=== PATIENT | male | born 1955 | race Caucasian/White ===

== ENCOUNTER 2017-09-15 08:39 | Day surgery (SDC) | payer BC ==
[2017-09-14 10:55] VITALS: BMI 27.7
[~2017-09-15 08:39] MED LIST: LACTATED RINGERS 1,000 ML IV SCH
[2017-09-15 09:53] VITALS: TEMP 97.7
[2017-09-15] MEDS ORDERED: PROPOFOL 10 MG/ML 20 ML VIAL IV ONE (10:31)
--- NOTE | 2017-09-15 11:52 | P.PCN ---
Date of Procedure: 09/15/17 Procedure(s) Performed: Procedure: Total colonoscopy. Preoperative diagnosis: Screening for neoplasia. Postoperative diagnosis: Normal exam with no evidence of acute diverticulitis, strictures, polyps or cancer. Preparation: HalfLytely prep. Sedation: Was provided by anesthesia. Brief clinical history: The patient is 62-year-old male who is referred for this evaluation for screening for neoplasia. He had prior exams in the past because of family history of colon cancer and he had polyps removed. His last exam was 5 years ago. He has no abdominal complaints, bleeding or anemia. Procedure: With the patient on his left lateral decubitus position and after informed consent and adequate sedation, the perianal area was inspected and it did not show any fissures or fistulas. There were no masses felt on digital rectal examination. The Olympus CFQ 160L video colonoscope was then inserted in the rectum in the usual fashion and advanced to the cecum. The mucosa appeared healthy. No polyps or tumors were seen or any obvious diverticular disease. I retroflexed the endoscope in the rectum before the endoscope was withdrawn. The patient tolerated the procedure well. Plan: The patient was reassured. Discussed dietary measures. With his history , I recommended repeat exam in 5 years. He will follow-up with you as planned.
[2017-09-15 12:04] VITALS: BP 97/57; PULSE 54; RESP 12
== END 2017-09-15 12:00 | disposition home or self-care (01) ==
LOC: ORWHC2ENDO 08:39
DX: Z12.11 Encounter for screening for malignant neoplasm of colon (principal); Z86.010 Personal history of colon polyps; Z80.0 Family history of malignant neoplasm of digestive organs; I25.10 Atherosclerotic heart disease of native coronary artery without angina pectoris; I10 Essential (primary) hypertension; E78.5 Hyperlipidemia, unspecified; Z95.5 Presence of coronary angioplasty implant and graft; Z79.82 Long term (current) use of aspirin; Z79.899 Other long term (current) drug therapy
CPT/HCPCS: J2704; G0105; 45378

== ENCOUNTER → 2019-05-11 | Outpatient (CLI) | payer BC ==
--- NOTE | 2019-05-11 22:58 | MR ---
EXAMINATION TYPE: MR lumbar spine wo con DATE OF EXAM: 05/11/2019 COMPARISON: Outside lumbar spine x-ray report April 26, 2019 HISTORY: Micha leg numbness/tingling for 3 months per patient. Spinal stenosis per order. TECHNIQUE: Multiplanar, multisequence imaging of the lumbar spine is performed without IV contrast. FINDINGS: Sagittal images of the lumbar spine show vertebral body heights and alignment to appear sat isfactory. Multilevel disc desiccation with mild disc space narrowing L3-L4 and L4-L5 levels. Mild mu ltilevel anterior spurring. The conus medullaris is normal in position and signal ending at mid L1 l evel. The bone marrow signal intensity is within normal limits. Axial images show at T12-L1 and L1-L2 levels to appear within normal limits. Axial images at the L2-L3 level show mild to moderate broad disc bulge and mild facet degenerative ch anges bilaterally. There is mild effacement anterior thecal sac and fairly moderate bilateral anterio r inferior neural foraminal narrowing encroaching on both L2 nerves worse on the left sagittal image 2 versus right sagittal image 12. Axial images at the L3-L4 level show [id number] facet degenerative changes and ligamentum flavu m hypertrophy effacing the posterior lateral thecal sac. There is mild/moderate broad disc bulge effa cing anterior thecal sac with annular tear. There is mild to moderate right and mild left-sided anter ior inferior neural foraminal narrowing. Axial images at the L4-L5 level moderate facet degenerative changes bilaterally. There is moderate br oad disc bulge effacing anterior thecal sac. There is moderate bilateral neural foraminal narrowing e ncroaching on both L4 nerve sagittal image 3 and 13 respectively. Axial images at the L5-S1 level show mild facet degenerative changes bilaterally. Spinal canal is pre served. Bilateral neural foramina are patent. No suspicious incidental retroperitoneal findings are seen. IMPRESSION: Multilevel degenerative changes in lumbar spine most prominent at L2-L3 through the L4-L5 levels as detailed above.
== END | disposition home or self-care (01) ==
LOC: RADMRIMAIN 19:27
PROVIDERS: ATTEND Internal Medicine Geriatric Medicine
DX: M48.061 Spinal stenosis, lumbar region without neurogenic claudication (principal); M47.816 Spondylosis without myelopathy or radiculopathy, lumbar region; M51.86 Other intervertebral disc disorders, lumbar region
CPT/HCPCS: 72148

== ENCOUNTER 2019-05-16 14:37 | Inpatient (IN) | payer BC, MEDICARE ==
[2019-05-16] MEDS ORDERED: ASPIRIN 81 MG PO STA (15:06)
--- NOTE | 2019-05-16 15:11 | ED ---
Chest Pain HPI <Robson Weston - Last Filed: 05/16/19 16:46> - General Source: patient Mode of arrival: ambulatory Limitations: no limitations <Brionna Osborne - Last Filed: 05/16/19 17:12> - General Chief Complaint: Chest Pain Stated Complaint: Chest Pain Time Seen by Provider: 05/16/19 14:56 - History of Present Illness Initial Comments: 63-year-old male patient with past medical history significant for coronary artery disease and hypertension presents to the emergency department today for evaluation of left-sided chest pain. Patient states that he started having intermittent chest pains yesterday. Patient states today they have persisted. He is having associated dizziness and shortness of breath. Denies any nausea, vomiting, or sweats. Denies any recent travel, leg pain, or Swelling. He denies any cough or congestion. Denies fever or chills. Patient denies any recent rash, abdominal pain, nausea, vomiting, diarrhea, constipation, back pain, numbness, tingling, hematuria, dysuria, urinary urgency, urinary frequency, headache, visual changes, or any other complaints. (Brionna Osborne) - Related Data Home Medications Medication Instructions Recorded Confirmed Aspirin 325 mg PO DAILY 09/14/17 05/16/19 Atenolol [Tenormin] 12.5 mg PO HS 09/14/17 05/16/19 Gemfibrozil [Lopid] 600 mg PO HS 09/14/17 05/16/19 Lisinopril [Zestril] 20 mg PO BID 09/14/17 05/16/19 Simvastatin 40 mg PO HS 09/14/17 05/16/19 amLODIPine [Norvasc] 5 mg PO BID 09/14/17 05/16/19 cloNIDine HCL [Catapres] 0.1 mg PO HS 09/14/17 05/16/19 Allergies Allergy/AdvReac Type Severity Reaction Status Date / Time No Known Allergies Allergy Verified 05/16/19 15:22 Review of Systems ROS Other: All systems not noted in ROS Statement are negative. <Robson Weston - Last Filed: 05/16/19 16:46> ROS Other: All systems not noted in ROS Statement are negative. <Brionna Osborne - Last Filed: 05/16/19 17:12> ROS Statement: Those systems with pertinent positive or pertinent negative responses have been documented in the HPI. EKG Findings - EKG Comments: EKG Findings:: EKG obtained at 1452 shows sinus bradycardia with an incomplete right bundle branch block, ventricular rate 59, HI interval 162, QRS duration 92, QTc 412, QTC 407. <Brionna Osborne - Last Filed: 05/16/19 17:12> Past Medical History Past Medical History: Coronary Artery Disease (CAD), Hyperlipidemia, Hypertension Additional Past Medical History / Comment(s): PREVIOUS HX OF COLON POLYPS History of Any Multi-Drug Resistant Organisms: None Reported Past Surgical History: Heart Catheterization With Stent, Orthopedic Surgery Additional Past Surgical History / Comment(s): STENT X3, ARM TENDON REPAIR Past Anesthesia/Blood Transfusion Reactions: No Reported Reaction Date of Last Stent Placement:: 12/2010 Past Psychological History: No Psychological Hx Reported Smoking Status: Former smoker Past Alcohol Use History: Occasional Past Drug Use History: None Reported - Past Family History Father Family Medical History: Cancer Additional Family Medical History / Comment(s): COLON <Brionna Osborne - Last Filed: 05/16/19 17:12> General Exam Limitations: no limitations General appearance: alert, in no apparent distress, other (This is a well- developed, well-nourished adult male patient in no acute distress. Vital signs upon presentation are temperature 98.6F, pulse 58, respirations 16, blood pressure 135/76, pulse ox 99% on room air.) Eye exam: Present: normal appearance, PERRL, EOMI. Absent: scleral icterus, conjunctival injection, periorbital swelling ENT exam: Present: normal exam, normal oropharynx, mucous membranes moist Respiratory exam: Present: normal lung sounds bilaterally. Absent: respiratory distress, wheezes, rales, rhonchi, stridor Cardiovascular Exam: Present: regular rate, normal rhythm, normal heart sounds. Absent: systolic murmur, diastolic murmur, rubs, gallop, clicks GI/Abdominal exam: Present: soft, normal bowel sounds. Absent: distended, tenderness, guarding, rebound, rigid Extremities exam: Present: normal inspection, full ROM, normal capillary refill. Absent: tenderness, pedal edema, joint swelling, calf tenderness Neurological exam: Present: alert, oriented X3, CN II-XII intact Psychiatric exam: Present: normal affect, normal mood Skin exam: Present: warm, dry, intact, normal color. Absent: rash <Brionna Osborne - Last Filed: 05/16/19 17:12> Course <Robson Weston - Last Filed: 05/16/19 16:46> Vital Signs 05/16/19 05/16/19 05/16/19 14:45 14:53 15:00 Temperature 98.6 F Pulse Rate 58 L 58 L Respiratory 16 19 Rate Blood Pressure 135/76 158/97 O2 Sat by Pulse 99 95 96 Oximetry 05/16/19 05/16/19 05/16/19 15:30 16:00 16:30 Temperature Pulse Rate 57 L 58 L 56 L Respiratory 17 18 Rate Blood Pressure 146/91 139/83 O2 Sat by Pulse 95 98 96 Oximetry - Reevaluation(s) Reevaluation #1: 05/16/19 16:46 Patient reevaluated and reexamined by myself, Dr. Weston. I do repeat findings. This includes diagnostic interpretation and treatment plan. Heart sounds: Regular rate and rhythm without murmur. Radial and pedal pulses 2/4 bilateral. Patient states he has been having episodes of discomfort lasting anywhere from seconds to minutes. This is been occurring since yesterday. Currently patient is symptom-free. Patient is updated on results. Case was discussed in detail with Dr. Cummings who states patient will need stress test. Patient does prefer to stay in the hospital for this and Dr. Cummings is in agreement for admission. He does request cardiology consult for stress test. (Robson Weston) Chest Pain MDM <Brionna Osborne - Last Filed: 05/16/19 17:12> - [facility]:Two-view x-ray of the chest was obtained. Report was reviewed in its entirety. Impression by Dr. Najera shows no acute cardiopulmonary process. MDM: 63-year-old male patient passed a history significant for coronary artery disease presents to the emergency department today for evaluation of chest pain and shortness of breath. Physical examination is unremarkable. Lungs are clear to auscultation with good air movement. Labs reviewed and are unremarkable. Initial troponin is negative. Patient will be admitted to the hospital for stress test and serial cardiac troponins. Patient is agreeable with this plan. (Brionna Osborne) Disposition <Robson Weston - Last Filed: 05/16/19 16:46> Decision to Admit Reason: Admit from EC Decision Date: 05/16/19 Decision Time: 16:54 <Brionna Osborne - Last Filed: 05/16/19 17:12> Clinical Impression: Chest pain Disposition: ADMITTED IP TO THIS [facility] Condition: Serious Referrals: Issac Cummings MD [Primary Care Provider] - 1-2 days
[2019-05-16 15:22] LABS: Basophils % (A) 1 %; Eosinophils # (A) 0.1 k/uL (0-0.7); Eosinophils % (A) 2 %; HCT 43.9 % (39.0-53.0); HGB 15.9 gm/dL (13.0-17.5); Lymphocytes # (A) 1.7 k/uL (1.0-4.8); Lymphocytes % (A) 23 %; MCHC 36.2 g/dL (31.0-37.0); MCV 93.9 fL (80.0-100.0); Mean Platelet Volume 7.1; Monocytes # (A) 0.4 k/uL (0-1.0); Monocytes % (A) 5 %; Neutrophils # (A) 4.8 k/uL (1.3-7.7); Neutrophils % (A) 67 %; Platelet Count 177 k/uL (150-450); RBC 4.67 m/uL (4.30-5.90); RDW 12.8 % (11.5-15.5); WBC 7.2 k/uL (3.8-10.6)
[2019-05-16 15:31] LABS: Albumin 4.4 g/dL (3.5-5.0); Calcium 9.7 mg/dL (8.4-10.2); Magnesium 2.1 mg/dL (1.6-2.3); Total Bilirubin 0.5 mg/dL (0.2-1.3)
[2019-05-16 15:35] LABS: D-Dimer 0.33 mg/L FEU (<0.60); Partial Thromboplastin Time 26.2 sec (22.0-30.0)
--- NOTE | 2019-05-16 15:40 | XR ---
EXAMINATION TYPE: XR chest 2V DATE OF EXAM: 05/16/2019 COMPARISON: None HISTORY: 63-year-old male with chest pain and shortness of breath TECHNIQUE: PA and lateral views FINDINGS: Heart upper limits of normal in size. Aorta and pulmonary vasculature within normal limits. Some stra ndy atelectasis lower lungs. No consolidation or pleural effusion. IMPRESSION: No acute cardiopulmonary process.
[2019-05-16] MEDS ORDERED: NITROGLYCERIN SL TABS 0.4 MG TAB SUBLINGUAL PRN (16:54)
[2019-05-16] MEDS ORDERED: ATORVASTATIN 20 MG TAB PO SCH (21:00)
[2019-05-16] MEDS: cloNIDine HCL 0.1 MG TAB PO SCH (21:06)
[2019-05-16] MEDS: FENOFIBRATE 160 MG TAB PO SCH (21:06)
[2019-05-16] MEDS: LISINOPRIL 20 MG TAB PO SCH (21:06)
[2019-05-16] MEDS: amLODIPine 5 MG TAB PO SCH (21:06)
[2019-05-16] MEDS: ATENOLOL 25 MG TAB PO SCH (21:06)
[2019-05-17 04:13] LABS: Cholesterol 130 mg/dL (<200); HDL Cholesterol 25 mg/dL (40-60); LDL Cholesterol,Calculated 84 mg/dL (0-99); Triglycerides 106 mg/dL (<150)
[2019-05-17] MEDS ORDERED: ASPIRIN 325 MG TAB PO SCH ×2 (09:00)
[2019-05-17] MEDS ORDERED: SODIUM CHLORIDE 0.9% 1,000 ML in EMPTY BAG 1 BAG IV ONE (10:31)
[2019-05-17] MEDS ORDERED: ASPIRIN 325 MG TAB PO STA (10:31)
[2019-05-17] MEDS ORDERED: ALPRAZolam 0.25 MG TAB PO PRN (10:31)
[2019-05-17] MEDS ORDERED: NITROGLYCERIN SL TABS 0.4 MG TAB SUBLINGUAL PRN (10:31)
[2019-05-17] MEDS ORDERED: ATORVASTATIN 80 MG TAB PO STA (10:31)
[2019-05-17] MEDS: LISINOPRIL 20 MG TAB PO SCH ×2 (10:38→21:34)
[2019-05-17] MEDS: amLODIPine 5 MG TAB PO SCH ×2 (10:38→21:34)
--- NOTE | 2019-05-17 12:36 | CONS ---
CONSULTATION CHIEF COMPLAINT: Chest pain. Peterson is a 63-year-old gentleman with history of coronary artery disease, status post multivessel angioplasty including right coronary artery and proximal and mid circumflex coronary artery nearly 10 years ago, hypertension, and dyslipidemia who presents to hospital complaining of chest pain. He describes it as intermittent episodes of precordial chest pressure, mild to moderate intensity at rest, unrelated to exertion associated with diaphoresis. He has had several of these episodes starting from Thursday, was concerned came into hospital. EKG does not reveal ischemic changes. Cardiac enzymes strike that EKG shows sinus bradycardia, incomplete right bundle branch block and nonspecific ST-T wave changes suggestive of ischemia. His cardiac enzymes are negative. LDL cholesterol is 84, creatinine is 1.1, hemoglobin is 15.9, and platelet count is 177. Given the known coronary artery disease, prior multivessel angioplasty and symptoms suggestive of unstable angina, I advised the patient to undergo cardiac catheterization for further evaluation. He has been explained of risks, benefits and alternatives, understood and accepted. PAST MEDICAL HISTORY: Significant for hypertension, dyslipidemia, coronary artery disease, status post prior multivessel angioplasty. MEDICATIONS: Include Norvasc 5 b.i.d., simvastatin 40 daily, Zestril 20 b.i.d., Lopid 600 daily Tenormin 12.5 daily, aspirin. ALLERGIES: There are no known drug allergies. FAMILY HISTORY: Negative for premature coronary artery disease. SOCIAL HISTORY: Negative for current smoking, EtOH abuse, or drug abuse. REVIEW OF SYSTEMS: HEENT: Unremarkable. CARDIAC: As described above. RESPIRATORY: Negative. GI: Negative. : Negative. ALLERGY/IMMUNOLOGY: Negative SKIN: Negative. MUSCULOSKELETAL: Negative. DERM: Negative. CONSTITUTIONAL: Negative. ONCOLOGICAL: Negative. Rest of the system review is not relevant. PHYSICAL EXAM: Patient is comfortable at rest. Heart rate is 50 beats per minute. Blood pressure is 130/80, respiratory rate is 18. There is no jugular venous distention. Carotid upstroke is normal. There is no bruit. Chest exam reveals good air entry bilaterally. Heart exam reveals first and second heart sounds. No gallop. No murmur. No rub. Abdomen is soft, nontender. Exam of extremities did not reveal edema. Peripheral pulses are felt. HOISTER exam did not reveal focal neurological deficits. Cardiac enzymes are negative. EKG shows nonspecific ST-T wave changes suggestive of ischemia. ASSESSMENT: 1. Unstable angina. 2. Hypertension. 3. Dyslipidemia. PLAN: I advised the patient to undergo invasive angiography for further evaluation. The patient had been explained of risks, benefits and alternatives, understood and accepted. MMELIDIA / IJN: [id number] /
[2019-05-17] MEDS: cloNIDine HCL 0.1 MG TAB PO SCH (20:49)
[2019-05-17] MEDS: FENOFIBRATE 160 MG TAB PO SCH (21:34)
[2019-05-17] MEDS: ATENOLOL 25 MG TAB PO SCH (21:34)
[2019-05-17] MEDS: ALPRAZolam 0.5 MG TAB PO PRN (22:39)
[2019-05-18] MEDS: amLODIPine 5 MG TAB PO SCH ×2 (06:16→21:27)
[2019-05-18] MEDS: LISINOPRIL 20 MG TAB PO SCH ×2 (06:16→21:27)
[2019-05-18] MEDS ORDERED: ASPIRIN 325 MG TAB PO SCH (09:00)
[2019-05-18] MEDS ORDERED: fentaNYL (PF) 50 MCG/ML 2 ML AMP ONE (09:47)
[2019-05-18] MEDS ORDERED: IV FLUID CONTINUATION 600 ML IV ONE (09:48)
[2019-05-18] MEDS ORDERED: MIDAZOLAM 2 MG/2 ML VIAL IVP ONE (10:10)
[2019-05-18] MEDS ORDERED: fentaNYL (PF) 50 MCG/ML 2 ML AMP IV ONE (10:10)
[2019-05-18] MEDS ORDERED: LIDOCAINE 1% INJ 10MG/ML (20 ML MDV) SQ ONE (10:14)
[2019-05-18] MEDS ORDERED: IOPAMIDOL-370 125ML BTL INJ ONE ×2 (10:23→11:19)
[2019-05-18] MEDS ORDERED: CLOPIDOGREL 75 MG TAB ONE (10:54)
[2019-05-18] MEDS ORDERED: BIVALIRUDIN BOLUS 250 MG/50 ML IV ONE (10:59)
[2019-05-18] MEDS ORDERED: CLOPIDOGREL 75 MG TAB PO ONE (10:59)
[2019-05-18] MEDS ORDERED: BIVALIRUDIN 250 MG in SODIUM CHLORIDE 0.9% 50 ML IV ONE (10:59)
--- NOTE | 2019-05-18 10:59 | CC ---
CARDIAC CATHETERIZATION REPORT INDICATION: Unstable angina. A 63-year-old gentleman with history of known coronary artery disease, status post prior multivessel angioplasty, comes to hospital with unstable angina and ruled out for myocardial infarction. He was advised to undergo cardiac catheterization for further evaluation and had been explained of risks, benefits and alternatives. PROCEDURE NOTE: After obtaining informed consent, left heart catheterization and coronary angiogram were performed via the right femoral artery using standard Salvatore catheters. The patient tolerated the procedure well without any obvious immediate complications. A femoral angiogram was performed and Angio-Seal will be deployed for hemostasis. Patient received moderate conscious sedation and total sedation time was 25 minutes. FINDINGS: 1. HEMODYNAMICS: Left ventricular end-diastolic pressure is 8 to 12 mm. There is no significant gradient across the aortic valve. 2. LEFT VENTRICULOGRAM: Left ventriculogram is not performed. 3. ANGIOGRAPHIC DATA: Left Main Coronary Artery: Left main coronary artery is a normal-sized vessel and is free of stenosis. Divides into left anterior descending coronary artery and circumflex coronary artery. LAD shows an atherosclerotic plaque in the proximal part. At its worse, it seems to be 50% stenosis. The previously stented segment in the circumflex OM branch appears patent. Right coronary artery is a large dominant vessel that was previously stented in the distal part and the stent appears patent. It divides into PDA and PLV branches. The PLV has a focal 90% stenosis. CONCLUSIONS: 1. Patent stents within the OM branch and right coronary artery. 2. Moderate stenosis involving proximal left anterior descending artery. 3. A 90% stenosis involving PLV branch. PLAN: Patient will undergo angioplasty of the PLV and we will consider an outpatient stress test to assess hemodynamic significance of the LAD lesion. If necessary, refer him for angioplasty. MMODL / IJN: [id number] /
[2019-05-18] MEDS: NITROGLYCERIN 1000MCG/10ML SYRINGE INTRACORON ONE ×2 (11:18→11:31)
[2019-05-18] MEDS ORDERED: ADENOSINE 90 MG in SODIUM CHLORIDE 0.9% 60 ML IVP ONE (11:35)
[2019-05-18] MEDS ORDERED: IOPAMIDOL-370 100ML BTL INJ ONE (11:41)
[2019-05-18] MEDS ORDERED: MAG HYDROX/AL HYDROX/SIMETH 30 ML CUP PO PRN (11:53)
[2019-05-18] MEDS ORDERED: RX INFO: IV CONTRAST WAS GIVEN 1 EACH MISC MISCELLANE PRN (11:53)
[2019-05-18] MEDS ORDERED: ZOLPIDEM 5 MG TAB PO PRN (11:53)
[2019-05-18] MEDS ORDERED: ATROPINE SULFATE 0.1 MG/ML 10ML SYRINGE IV PRN (11:53)
[2019-05-18] MEDS ORDERED: NITROGLYCERIN SL TABS 0.4 MG TAB SUBLINGUAL PRN (11:53)
[2019-05-18] MEDS ORDERED: SODIUM CHLORIDE 0.9% 1,000 ML IV SCH (12:00)
--- NOTE | 2019-05-18 12:20 | PTCA ---
PERCUTANEOUSTRANS CORORONARY ANGIOGRAPHY Mr. Yarbrough is a 63-year-old male known history of coronary artery disease, status post stenting of the RCA and the left circumflex in 2010, who presented with symptoms of chest discomfort without enzymatic changes. He underwent cardiac catheterization by Dr. Villaseñor and was found to have significant disease involving the right PLV. in view of that, recommendation was made regarding angioplasty and stenting. The procedures, risks, and complications were discussed with the patient who is in full understanding and agreement. PROCEDURE: A 6-Mongolian FR4 guiding catheter introduced into the system after stenting the right coronary ostium. A 0.014 balanced medium weight J-wire was advanced across the lesion, positioned distally. Then a 2.0 x 8 mm Trek balloon was advanced at 2 inflation maximum of 8 atmospheres were done. Following that, the balloon was removed and a 2.0 x 12 mm Resolute joleen stent was deployed and post at 16 atmospheres. After the last inflation, after appropriate wait, the balloon and the guidewire were withdrawn back in the guiding catheter. Images were obtained and repeated. Those images reveal stable successful stenting. At that point, the guiding catheter, the balloon and the guidewire were removed and a 6-Mongolian FR4 guiding catheter introduced into the system and after cannulating the left main ostium, a [employer] Doppler wire was advanced and positioned distal LAD, IFR was calculated at 94% and subsequently FFR with an infusion of adenosine per protocol was calculated at 81%. At that time, the wire and guiding catheter were removed. The sheath was removed, hemostasis was obtained with deployment of an Angio-Seal. There was no immediate complication. Patient is returned to his room in stable condition. Of note, the patient received Angiomax per protocol as well as oral loading dose of clopidogrel. He had no chest discomfort or EKG changes with the inflation. RESULTS: 1. Successful stenting of the right PLV with reduction of stenosis from 95% to 0%. 2. Non hemodynamic significant lesion in the LAD. RECOMMENDATION: Patient will be continued on aspirin, Plavix, beta tony and statin. The importance of dual antiplatelet treatment were discussed with the patient and his family who are in full understanding and agreement. Duration of the procedure is 35 minutes. MMODL / IJN: [id number] /
[2019-05-18 14:46] VITALS: BMI 28.2
--- NOTE | 2019-05-18 16:30 | P.HPIM ---
History of Present Illness H&P Date: 05/17/19 Chief Complaint: Recurrent chest pain and angina, CAD, hypertension, hyperli pidemia and chronic manager 63-year-old male one of my office patient is known to have history of CAD post PCI and stent placement over 7 years ago who is known to have history of hypertension hyperlipidemia chronic migraine and chronic kidney disease stage I who was in the office recently for follow-up and Beasley exam was doing well. Patient presented to the emergency department at [facility] on the 11 4 in the evening complaining of recurrent chest pain atypical with short span discomfort on and off in the midsternal area bradycardia toward the left side associated with slight shortness of breath with mild palpitation and nausea. With his sister long history decided to admit patient to the hospital see cardiology if troponin is abnormal will be going for ramp heart cath if not will do stress test. Review of Systems CONSTITUTIONAL: Well-developed no acute respiratory distress. EYES: No icterus sclerae, no conjunctivitis. EARS, NOSE, MOUTH, THROAT, and FACE: No sore throat, lymphadenopathy, carotid bruits or deformity. RESPIRATORY: No SOB cough or wheezes. CARDIOVASCULAR: No CP, Palpitation, PND, Orthopnea, or angina. GASTROINTESTINAL: No Abd pain, Nausea or vomiting, no Diarrhea or constipation, No GI Bleed, no distention or masses. GENITOURINARY: Negative for Hematuria or UTI, no kidney stones. INTEGUMENT/BREAST: Negative for any muscular injury with mild osteoarthritis.. HEMATOLOGIC/LYMPHATIC: Negative for bleed or purpura. MUSCULOSKELTAL: Negative for Myalgia or arthralgia. NEURLOGICAL: No LOC, Sz or syncope, blurred vision dizziness or abnormality.. BEHAVIORAL/PSYCH: Negative. ENDOCRINE: Negative. Past Medical History Past Medical History: Coronary Artery Disease (CAD), Hyperlipidemia, Hypertension Additional Past Medical History / Comment(s): PREVIOUS HX OF COLON POLYPS History of Any Multi-Drug Resistant Organisms: None Reported Past Surgical History: Heart Catheterization With Stent, Orthopedic Surgery Additional Past Surgical History / Comment(s): STENT X3, ARM TENDON REPAIR Past Anesthesia/Blood Transfusion Reactions: No Reported Reaction Date of Last Stent Placement:: 12/2010 Past Psychological History: No Psychological Hx Reported Smoking Status: Former smoker Past Alcohol Use History: Occasional Additional Past Alcohol Use History / Comment(s): QUIT SMOKING >20 YRS AGO, SMOKED 1 AND 1/2PPD FOR 10YRS Past Drug Use History: None Reported - Past Family History Father Family Medical History: Cancer Additional Family Medical History / Comment(s): COLON Medications and Allergies Home Medications Medication Instructions Recorded Confirmed Type Aspirin 325 mg PO DAILY 09/14/17 05/16/19 History Atenolol [Tenormin] 12.5 mg PO HS 09/14/17 05/16/19 History Gemfibrozil [Lopid] 600 mg PO HS 09/14/17 05/16/19 History Lisinopril [Zestril] 20 mg PO BID 09/14/17 05/16/19 History Simvastatin 40 mg PO HS 09/14/17 05/16/19 History amLODIPine [Norvasc] 5 mg PO BID 09/14/17 05/16/19 History Allergies Allergy/AdvReac Type Severity Reaction Status Date / Time No Known Allergies Allergy Verified 05/16/19 15:22 Physical Exam Vitals: Vital Signs Temp Pulse Pulse Resp BP BP Pulse Ox 05/17/19 11:54 51 L 18 151/83 96 05/17/19 08:00 97.5 F L 50 L 18 132/80 96 05/17/19 04:00 97.7 F 47 L 16 121/72 98 05/17/19 00:00 97.6 F 48 L 16 117/73 96 05/16/19 20:00 97.6 F 61 16 139/81 98 05/16/19 17:14 97.8 F 57 L 18 161/81 98 05/16/19 17:10 18 05/16/19 16:30 56 L 18 96 05/16/19 16:00 58 L 139/83 98 05/16/19 15:30 57 L 17 146/91 95 05/16/19 15:00 58 L 19 158/97 96 05/16/19 14:53 95 05/16/19 14:45 98.6 F 58 L 16 135/76 99 Intake and Output 05/16/19 05/17/19 05/17/19 22:59 06:59 14:59 Intake Total 400 0 Balance 400 0 Intake: Oral 400 0 Other: Voiding Method Toilet Weight 98.6 kg General Appearance: Alert, cooperative, no distress, appears stated age. Neck HEENT: Supple, no lymphadenopathy, no thyroid enlargement, no carotid bruits. Lungs: Clear to auscultation without crackles or wheezes no rhonchi, no deformity. Chest Wall: Chest wall normal expansion with deep inspiration no tenderness and no deformity was found on exam, no costochondral pain or discomfort. Heart: Regular rate and rhythm, S1, S2 normal, no murmur, rub or gallop. Back: Symmetric, no curvature, ROM normal, no CVA tenderness. Abdomen: Soft, non-tender, bowel sounds active all four quadrants, no masses, no organomegaly. Extremities: Extremities normal, atraumatic, no cyanosis or edema. Pulses: 2+ and symmetric. Skin: Skin color, texture, tugor normal, no rashes or lesions. Neurologic: Alert oriented x3 cranial nerves II through XII intact, no motor deficit, no abnormal balance or gait. Results CBC & Chem 7: 05/16/19 14:58 05/16/19 14:58 Labs: Abnormal Lab Results - Last 24 Hours (Table) 05/16/19 05/17/19 Range/Units 14:58 03:47 Chloride 111 H (98-107) mmol/L Carbon Dioxide 21 L (22-30) mmol/L Glucose 153 H (74-99) mg/dL HDL Cholesterol 25 L (40-60) mg/dL Thrombosis Risk Factor Assmnt - DVT/VTE Prophylaxis DVT/VTE Prophylaxis: Mechanical Prophylaxis ordered - Choose All That Apply Any of the Below Risk Factors Present?: Yes Each Factor Represents 1 point: Obesity (BMI >25) Other Risk Factors: Yes Each Risk Factor Represents 2 Points: Age 61-74 years Thrombosis Risk Factor Assessment Total Risk Factor Score: 3 Thrombosis Risk Factor Assessment Level: Moderate Risk Assessment and Plan Plan: 1 recurrent chest pain with strong history of heart disease: Patient be seen cardiology CK with troponin so far is negative continue secondary prevention patient apparently will be going for heart cath per ROM cardiology recommendation if any abnormality might require an angioplasty. 2 hypertension: Remain on amlodipine 5 mg twice a day along with lisinopril 20 mg twice a day and metoprolol 12.5 mg twice a day. 3 hyperlipidemia: On simvastatin 40 mg daily and Lopid 600 mg a day. 4 for chronic history of migraine: Patient has been on Imitrex has been doing better lately he seen Dr. Schaffer regularly. 5 stage I chronic kidney disease with significant improvement in BUN/creatinine doing well continue hydration. 6 history of CAD: Post PCI and stent placement of the RCA and left circumflex back in 2011 has been doing well on secondary prevention up till now. 7 GI prophylaxis: Patient be on Pepcid 20 mg daily. 8 DVT prophylaxis: Mechanical support and early mobilization be done. CODE STATUS: Full code. Admit patient to inpatient for more than 2 nights.
--- NOTE | 2019-05-18 16:34 | P.PN ---
Subjective Progress Note Date: 05/18/19 Principal diagnosis: Unstable angina, CAD, post angiogram and angioplasty of the PLV, with previous PCI of the RCA and the circumflex in 2010 63-year-old male one of my office patient is known to have history of CAD post PCI and stent placement over 7 years ago who is known to have history of hypertension hyperlipidemia chronic migraine and chronic kidney disease stage I who was in the office recently for follow-up and Beasley exam was doing well. Patient presented to the emergency department at [facility] on the 05 16 in the evening complaining of recurrent chest pain atypical with short span discomfort on and off in the midsternal area bradycardia toward the left side associated with slight shortness of breath with mild palpitation and nausea. With his sister long history decided to admit patient to the hospital see cardiology if troponin is abnormal will be going for ramp heart cath if not will do stress test. 05/18: Patient ended up going for heart cath finding consistent with significant tight lesion of the PLV ended up having angioplasty and stent placement by Dr. Oswald was successful and addition finding of slight degree of blockage of the LAD does not require any intervention for now. Patient will be continue secondary prevention and possibly stress test in few weeks as an outpatient. Objective - Vital Signs Vital signs: Vital Signs Temp 97.6 F 05/18/19 14:55 Pulse 51 L 05/18/19 14:55 Resp 16 05/18/19 14:55 BP 113/73 05/18/19 14:55 Pulse Ox 97 05/18/19 14:55 Intake & Output 05/17/19 05/18/19 05/18/19 18:59 06:59 18:59 Intake Total 594 508 Output Total 600 Balance 594 -92 Weight 97 kg 97 kg Intake: IV 268 Intake, IV Titration 594 Amount Sodium Chloride 0.9% 1, 594 000 ml In Empty Bag 1 bag @ 1 ML/KG/HR 98.6 mls/hr IV .[id number] ONE Rx#: [id number] Oral 0 240 Output: Urine 600 Other: Voiding Method Toilet Toilet # Voids 2 1 - Exam Review of Systems CONSTITUTIONAL: Well-developed no acute respiratory distress. EYES: No icterus sclerae, no conjunctivitis. EARS, NOSE, MOUTH, THROAT, and FACE: No sore throat, lymphadenopathy, carotid bruits or deformity. RESPIRATORY: No SOB cough or wheezes. CARDIOVASCULAR: No CP, Palpitation, PND, Orthopnea, or angina. GASTROINTESTINAL: No Abd pain, Nausea or vomiting, no Diarrhea or constipation, No GI Bleed, no distention or masses. GENITOURINARY: Negative for Hematuria or UTI, no kidney stones. INTEGUMENT/BREAST: Negative for any muscular injury with mild osteoarthritis.. HEMATOLOGIC/LYMPHATIC: Negative for bleed or purpura. MUSCULOSKELTAL: Negative for Myalgia or arthralgia. NEURLOGICAL: No LOC, Sz or syncope, blurred vision dizziness or abnormality.. BEHAVIORAL/PSYCH: Negative. ENDOCRINE: Negative. Physical Exam General Appearance: Alert, cooperative, no distress, appears stated age. Neck HEENT: Supple, no lymphadenopathy, no thyroid enlargement, no carotid br uits. Lungs: Clear to auscultation without crackles or wheezes no rhonchi, no deformity. Chest Wall: Chest wall normal expansion with deep inspiration no tenderness and no deformity was found on exam, no costochondral pain or discomfort. Heart: Regular rate and rhythm, S1, S2 normal, no murmur, rub or gallop. Back: Symmetric, no curvature, ROM normal, no CVA tenderness. Abdomen: Soft, non-tender, bowel sounds active all four quadrants, no masses, no organomegaly. Extremities: Extremities normal, atraumatic, no cyanosis or edema. Pulses: 2+ and symmetric. Skin: Skin color, texture, tugor normal, no rashes or lesions. Neurologic: Alert oriented x3 cranial nerves II through XII intact, no motor deficit, no abnormal balance or gait. - Labs CBC & Chem 7: 05/16/19 14:58 05/16/19 14:58 Assessment and Plan Plan: 1 unstable angina and significant coronary disease in the right PLV: Post enteroplasty and stent placement with cardiology successful procedure will continue secondary prevention for now. Still have small lesion in the LAD does not require any intervention for now. 2 hypertension: Remain on amlodipine 5 mg twice a day along with lisinopril 20 mg twice a day and metoprolol 12.5 mg twice a day. 3 hyperlipidemia: On simvastatin 40 mg daily and Lopid 600 mg a day. 4 for chronic history of migraine: Patient has been on Imitrex has been doing better lately he seen Dr. Schaffer regularly. 5 stage I chronic kidney disease with significant improvement in BUN/creatinine doing well continue hydration. 6 history of CAD: Post PCI and stent placement of the RCA and left circumflex back in 2010 has been doing well on secondary prevention up till now. 7 GI prophylaxis: Patient be on Pepcid 20 mg daily.
[2019-05-18] MEDS ORDERED: ACETAMINOPHEN TAB 325 MG TAB PO PRN (19:12)
[2019-05-18 20:12] VITALS: RESP 18
[2019-05-18] MEDS: cloNIDine HCL 0.1 MG TAB PO SCH (20:35)
[2019-05-18] MEDS ORDERED: ATORVASTATIN 40 MG TAB PO SCH (21:00)
[2019-05-18] MEDS ORDERED: ATORVASTATIN 20 MG TAB PO SCH (21:00)
[2019-05-18] MEDS: ATENOLOL 25 MG TAB PO SCH (21:26)
[2019-05-18] MEDS: ALPRAZolam 0.5 MG TAB PO PRN (21:27)
[2019-05-18] MEDS: FENOFIBRATE 160 MG TAB PO SCH (21:28)
[2019-05-19 06:49] LABS: Calcium 9.1 mg/dL (8.4-10.2); Potassium 4.4 mmol/L (3.5-5.1)
[2019-05-19] MEDS: amLODIPine 5 MG TAB PO SCH (08:27)
[2019-05-19] MEDS: LISINOPRIL 20 MG TAB PO SCH (08:27)
[2019-05-19 08:38] VITALS: BP 118/68; PULSE 56; TEMP 98
[2019-05-19] MEDS ORDERED: CLOPIDOGREL 75 MG TAB PO SCH (09:00)
[2019-05-19] MEDS ORDERED: ASPIRIN 81 MG PO SCH (09:00)
--- NOTE | 2019-05-19 09:33 | P.PN ---
Subjective Progress Note Date: 05/19/19 This is a pleasant 63-year-old gentleman with known history of coronary artery disease status post multivessel angioplasty including the right coronary artery and proximal and mid circumflex approximately 10 years ago, history also of hypertension, hyperlipidemia, presented to the hospital with s ymptoms of chest discomfort and was advised to undergo cardiac catheterization. Subsequently patient underwent successful stenting of the right PLV with reduction of stenosis from 95-0, nonhemodynamically significant lesion in the LAD. Patient was seen and examined this morning, EKG showed a sinus bradycardia with no changes from post-PCI. Blood pressure 118/68 with a heart rate of 56, 96% on room air. Sodium 140, potassium 4.4, BUN 19 and creatinine 1.1. Objective - Vital Signs Vital signs: Vital Signs Temp 98 F 05/19/19 08:00 Pulse 56 L 05/19/19 08:00 Resp 18 05/19/19 08:00 BP 118/68 05/19/19 08:00 Pulse Ox 96 05/19/19 08:00 Intake & Output 05/18/19 05/19/19 05/19/19 18:59 06:59 18:59 Intake Total 748 100 Output Total 600 Balance 148 100 Weight 97 kg 97 kg Intake: IV 268 Intake, IV Titration 100 Amount Sodium Chloride 0.9% 1, 100 000 ml @ 100 mls/hr IV . Q10H JUANY Rx#:[id number] Oral 480 Output: Urine 600 Other: Voiding Method Toilet Toilet # Voids 1 1 - Exam PHYSICAL EXAMINATION: GENERAL: 63-year-old gentleman in no acute distress at the time of my examination HEENT: Head is atraumatic, normocephalic. Pupils equal, round. Sclera anicteric. Conjunctiva are clear. Mucous membranes of the mouth are moist. Neck is supple. There is no elevated jugular venous pressure. No carotid bruit is heard. HEART EXAMINATION: Heart S1, S2 normal. No murmur or gallop heard. CHEST EXAMINATION: Lungs are clear to auscultation and precussion. No chest wall tenderness is noted on palpation or with deep breathing. ABDOMEN: Soft, nontender. Bowel sounds are heard. No organomegaly noted. EXTREMITIES: 2+ peripheral pulses with no evidence of peripheral edema and no calf tenderness noted. Right groin is soft, no evidence of any hematoma. NEUROLOGIC patient is awake, alert and oriented X3. . - Labs CBC & Chem 7: 05/16/19 14:58 05/19/19 06:26 Labs: Abnormal Lab Results - Last 24 Hours (Table) 05/19/19 Range/Units 06:26 Chloride 109 H (98-107) mmol/L Glucose 107 H (74-99) mg/dL Assessment and Plan Plan: Assessment and plan #1 status post angioplasty and stenting of the right PLV #2 known history of coronary artery disease with prior stenting 10 years ago #3 hypertension #4 hyperlipidemia Plan From cardiology's perspective, patient may be able to be discharged home today on dual antiplatelet therapy, Lipitor 40 mg daily, Norvasc 5 mg twice a day, atenolol 12-1/2 mg daily, clonidine, lisinopril 20 twice a day, Catapres 0.1 mg at at bedtime and sublingual nitroglycerin as needed for chest pain. DNP note has been reviewed, I agree with a documented findings and plan of care. Patient was seen and examined.
--- NOTE | 2019-05-20 14:43 | P.DS ---
Providers Date of admission: 05/18/19 10:08 Expected date of discharge: 05/19/19 Attending physician: Issac Cummings Consults: 05/16/19 16:47 Consult Physician Urgent Consulting Provider: Jamarcus Villaseñor Consult Reason/Comments: cp, stress test Do you want consulting provider notified?: Yes 05/18/19 11:53 Consult Physician Routine Consulting Provider: [facility] Consult Reason/Comments: Post Interventional patient Do you want consulting provider notified?: Already Contacted Primary care physician: Issac Cummings [facility] Course: 63-year-old male one of my office patient is known to have history of CAD post PCI and stent placement over 7 years ago who is known to have history of hypertension hyperlipidemia chronic migraine and chronic kidney disease stage I who was in the office recently for follow-up and Beasley exam was doing well. Patient presented to the emergency department at [facility] on the 05 16 in the evening complaining of recurrent chest pain atypical with short span discomfort on and off in the midsternal area bradycardia toward the left side associated with slight shortness of breath with mild palpitation and nausea. With his sist er long history decided to admit patient to the hospital see cardiology if troponin is abnormal will be going for ramp heart cath if not will do stress test. 05/18: Patient ended up going for heart cath finding consistent with significant tight lesion of the PLV ended up having angioplasty and stent placement by Dr. Oswald was successful and addition finding of slight degree of blockage of the LAD does not require any intervention for now. Patient will be continue secondary prevention and possibly stress test in few weeks as an outpatient. 05/19: Patient denies having any chest pain or shortness of breath. Blood pressure 118/68 with a heart rate of 56, 96% on room air. Sodium 140, potassium 4.4, BUN 19 and creatinine 1.1. Patient has been cleared by cardiology for discharge home. Patient will be discharged home today in stable condition. Discharge diagnoses: 1 unstable angina and significant coronary disease in the right PLV: Post enteroplasty and stent placement 2 hypertension 3 hyperlipidemia 4 chronic history of migraine 5 stage I chronic kidney disease 6 history of CAD: Post PCI and stent placement of the RCA and left circumflex back in 2010 Discharge plan: Home Impression and plan of care have been directed as dictated by the signing physician. Sravanthi Pimentel nurse practitioner acting as scribe for signing physician. Patient Condition at Discharge: Good Plan - Discharge Summary Discharge Rx Participant: Yes New Discharge Prescriptions: New Aspirin 81 mg PO DAILY #30 chew Nitroglycerin Sl Tabs [Nitrostat] 0.4 mg SUBLINGUAL Q5M PRN #25 tab PRN Reason: Chest Pain Clopidogrel [Plavix] 75 mg PO DAILY #30 tab Atorvastatin [Lipitor] 80 mg PO HS #30 tab Continue Atenolol [Tenormin] 12.5 mg PO HS Lisinopril [Zestril] 20 mg PO BID amLODIPine [Norvasc] 5 mg PO BID Gemfibrozil [Lopid] 600 mg PO HS Discontinued Aspirin 325 mg PO DAILY Simvastatin 40 mg PO HS Discharge Medication List Atenolol [Tenormin] 12.5 mg PO HS 09/14/17 [History] Gemfibrozil [Lopid] 600 mg PO HS 09/14/17 [History] Lisinopril [Zestril] 20 mg PO BID 09/14/17 [History] amLODIPine [Norvasc] 5 mg PO BID 09/14/17 [History] Aspirin 81 mg PO DAILY #30 chew 05/19/19 [Rx] Atorvastatin [Lipitor] 80 mg PO HS #30 tab 05/19/19 [Rx] Clopidogrel [Plavix] 75 mg PO DAILY #30 tab 05/19/19 [Rx] Nitroglycerin Sl Tabs [Nitrostat] 0.4 mg SUBLINGUAL Q5M PRN #25 tab 05/19/19 [ Rx] Follow up Appointment(s)/Referral(s): Issac Cummings MD [Primary Care Provider] - 1 Week (Office will call with follow up appointment.) Jamarcus Villaseñor MD [STAFF PHYSICIAN] - 05/31/19 1:00 pm Patient Instructions/Handouts: Heart Healthy Diet (DC), Coronary Intravascular Stent Placement (DC) Activity/Diet/Wound Care/Special Instructions: May return to work on Thursday without restrictions. RX delivery for medications. CARDIAC CATHETERIZATION: 1. Watch for any excessive bruising, active bleeding, a firm knot forming under your skin, extreme tenderness and signs of infection (redness, swelling, fever). 2. Shower daily, do not soak puncture in a tub bath, jacuzzi, pool, marrufo etc. for 1 week. This is to prevent risk of infection. 3. Drink plenty of fluids the day of and day after your procedure to flush contrast dye out of your kidneys. 4. Take all medications as directed. Never stop any new medication without your physicians OK. 5. No driving for 2 days after procedure. 6. 10- pound weight lifting restriction for 1 week. 7. Low sodium/low fat diet. 8. 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 In case of any problems, please call [facility] [place] @ [phone]. Discharge/Stand Alone Forms: Work/School Release Discharge Disposition: HOME SELF-CARE
== END 2019-05-19 12:46 | disposition home or self-care (01) | DRG 247 ==
LOC: EC 14:37 → 3SCARD 16:45 → UNDOADMIN 16:45 → INTOOBSV 16:45 → OBSVTOIN 05-18 10:08
PROVIDERS: ADMIT Internal Medicine Geriatric Medicine; ATTEND Internal Medicine Geriatric Medicine
PROC: 027034Z Dilation of Coronary Artery, One Artery with Drug-eluting Intraluminal Device, Percutaneous Approach (ICD-10-PCS; principal; 2019-05-18 10:30)
PROC: 4A023N7 Measurement of Cardiac Sampling and Pressure, Left Heart, Percutaneous Approach (ICD-10-PCS; 2019-05-18 10:30)
PROC: B2111ZZ Fluoroscopy of Multiple Coronary Arteries using Low Osmolar Contrast (ICD-10-PCS; 2019-05-18 10:30)
DX: I25.110 Atherosclerotic heart disease of native coronary artery with unstable angina pectoris (principal); E78.5 Hyperlipidemia, unspecified; I12.9 Hypertensive chronic kidney disease with stage 1 through stage 4 chronic kidney disease, or unspecified chronic kidney disease; I45.10 Unspecified right bundle-branch block; N18.1 Chronic kidney disease, stage 1; Z79.82 Long term (current) use of aspirin; Z79.899 Other long term (current) drug therapy; Z87.19 Personal history of other diseases of the digestive system; Z87.891 Personal history of nicotine dependence; G43.909 Migraine, unspecified, not intractable, without status migrainosus
CPT/HCPCS: 36415; 71046; 80048; 80053; 80061; 83690; 83735; 84484; 85025; 85347; 85379; 85610; 85730; 93005; 93458; 93571; 99285

== ENCOUNTER 2019-09-19 01:48 | Emergency (ER) | payer BC, MEDICARE ==
[2019-09-19 01:53] VITALS: BP 157/90; PULSE 56; RESP 18; TEMP 97.3
[2019-09-19] MEDS ORDERED: LIDOCAINE/EPINEPHR/TETRACAINE 5 ML BOTTLE TOPICAL ONE (02:02)
--- NOTE | 2019-09-19 02:35 | ED ---
General Adult HPI - General Chief complaint: ENT Stated complaint: L Ear Pain Time Seen by Provider: 09/19/19 01:54 Source: patient Mode of arrival: ambulatory Limitations: no limitations - History of Present Illness Initial comments: 64 year-old male patient presents to the emergency department today for evaluation of bleeding from the left ear. Patient states that a couple of hours ago he used a Q-tip to clean his ear is when he started to have some bleeding. Patient denies any pain or difficulty hearing. Patient does admit to taking Plavix. Denies any fever or chills. Denies any other areas of bleeding. - Related Data Home Medications Medication Instructions Recorded Confirmed Atenolol [Tenormin] 12.5 mg PO HS 09/14/17 05/16/19 Gemfibrozil [Lopid] 600 mg PO HS 09/14/17 05/16/19 Lisinopril [Zestril] 20 mg PO BID 09/14/17 05/16/19 amLODIPine [Norvasc] 5 mg PO BID 09/14/17 05/16/19 Previous Rx's Medication Instructions Recorded Aspirin 81 mg PO DAILY #30 chew 05/19/19 Atorvastatin [Lipitor] 80 mg PO HS #30 tab 05/19/19 Clopidogrel [Plavix] 75 mg PO DAILY #30 tab 05/19/19 Nitroglycerin Sl Tabs [Nitrostat] 0.4 mg SUBLINGUAL Q5M PRN #25 tab 05/19/19 Allergies Allergy/AdvReac Type Severity Reaction Status Date / Time No Known Allergies Allergy Verified 09/19/19 01:50 Review of Systems ROS Statement: Those systems with pertinent positive or pertinent negative responses have been documented in the HPI. ROS Other: All systems not noted in ROS Statement are negative. Past Medical History Past Medical History: Coronary Artery Disease (CAD), Hyperlipidemia, Hypertension Additional Past Medical History / Comment(s): PREVIOUS HX OF COLON POLYPS History of Any Multi-Drug Resistant Organisms: None Reported Past Surgical History: Heart Catheterization With Stent, Orthopedic Surgery Additional Past Surgical History / Comment(s): STENT X3, ARM TENDON REPAIR Past Anesthesia/Blood Transfusion Reactions: No Reported Reaction Date of Last Stent Placement:: 12/2010 Past Psychological History: No Psychological Hx Reported Smoking Status: Former smoker Past Alcohol Use History: Occasional Past Drug Use History: None Reported - Past Family History Father Family Medical History: Cancer Additional Family Medical History / Comment(s): COLON General Exam Limitations: no limitations General appearance: alert, in no apparent distress, other ENT exam: Present: TM's normal bilaterally (no evidence for tympanic membrane injury), other (there is abrasion noted to the left external auditory canal, over the anterior wall. There is active bleeding noted. No evidence for tympanic membrane rupture.). Absent: normal exam Respiratory exam: Present: normal lung sounds bilaterally. Absent: respiratory distress, wheezes, rales, rhonchi, stridor Cardiovascular Exam: Present: regular rate, normal rhythm, normal heart sounds. Absent: systolic murmur, diastolic murmur, rubs, gallop, clicks Neurological exam: Present: alert, oriented X3, CN II-XII intact Psychiatric exam: Present: normal affect, normal mood Skin exam: Present: warm, dry, intact, normal color. Absent: rash Course Vital Signs 09/19/19 01:50 Temperature 97.3 F L Pulse Rate 56 L Respiratory 18 Rate Blood Pressure 157/90 O2 Sat by Pulse 99 Oximetry Medical Decision Making - Medical Decision Making 64-year-old male patient presented to the emergency department today for evaluation of bleeding from the left ear. Physical examination did reveal an abrasion to the external auditory canal. A long Q-tip was soaked with zap solution and held over the bleeding area. This did promote bleeding cessation. Patient was evaluated 2 more times over a period of 30 minutes with no increase in bleeding. He'll be discharged to follow up with his primary care physician for recheck in 1-2 days. He is advised to avoid inserting anything into the ear canals. Return parameters were discussed in detail. He verbalizes understanding and agrees with this plan. Disposition Clinical Impression: Abrasion of left ear canal Disposition: HOME SELF-CARE Condition: Good Instructions (If sedation given, give patient instructions): Abrasion (ED) Additional Instructions: Avoid inserting anything into the ears. Follow-up with the primary care physician for recheck in 1-2 days. Return to the emergency department for any new, worsening, or concerning symptoms Is patient prescribed a controlled substance at d/c from ED?: No Referrals: Issac Cummings MD [Primary Care Provider] - 1-2 days Time of Disposition: 02:47
== END 2019-09-19 02:58 | disposition home or self-care (01) ==
LOC: EC 01:48
DX: S00.412A Abrasion of left ear, initial encounter (principal); H92.22 Otorrhagia, left ear; I25.10 Atherosclerotic heart disease of native coronary artery without angina pectoris; E78.5 Hyperlipidemia, unspecified; I10 Essential (primary) hypertension; Z79.899 Other long term (current) drug therapy; Z95.5 Presence of coronary angioplasty implant and graft; Z87.891 Personal history of nicotine dependence; X58.XXXA Exposure to other specified factors, initial encounter; Y93.89 Activity, other specified
CPT/HCPCS: 99282

== ENCOUNTER → 2020-03-05 | Outpatient (CLI) | payer MEDICARE, BC ==
[2020-03-05 10:34] LABS: African American GFR (CKD) 72.6 (60.0-200.0); Albumin 4.3 g/dL (3.80-4.90); Albumin/Globulin Ratio 2.26 (1.60-3.17); Anion Gap 5.7 mmol/L (4.00-12.00); Calcium 9.3 mg/dL (8.7-10.3); Carbon Dioxide 26.3 mmol/L (21.6-31.8); Chol/HDL Ratio 3.45; Globulin 1.9 g/dL (1.6-3.3); LDL Cholesterol,Calculated 54.4 mg/dL (0.0-131.0); Non-African American GFR(CKD) 62.6 (60.0-200.0); Potassium 4.4 mmol/L (3.5-5.5); Total Bilirubin 1.3 mg/dL (0.2-1.2); Total Protein 6.2 g/dL (6.2-8.2); VLDL Calculation 21.6 mg/dL (5.00-40.00)
== END | disposition home or self-care (01) ==
LOC: LABWHC1 07:33
PROVIDERS: ATTEND Internal Medicine Interventional Cardiology
DX: E78.2 Mixed hyperlipidemia (principal)
CPT/HCPCS: 36415; 80053; 80061

== ENCOUNTER 2020-06-02 10:58 | Inpatient (IN) | payer BC, MEDICARE ==
--- NOTE | 2020-06-02 12:15 | XR ---
EXAMINATION TYPE: XR chest 1V portable DATE OF EXAM: 06/02/2020 COMPARISON: 05/16/2019. HISTORY: Shortness of breath. Suspected Covid-19 pneumonia. TECHNIQUE: Single frontal view of the chest is obtained. FINDINGS: There is moderate perihilar opacity. No pleural effusion, or pneumothorax seen. The cardi ac silhouette size is within normal limits. The osseous structures are intact. IMPRESSION: Moderate perihilar opacity, consistent with infiltrate.
--- NOTE | 2020-06-02 12:24 | ED ---
URI HPI - General Chief Complaint: Upper Respiratory Infection Stated Complaint: +COVID, fever, SOB Time Seen by Provider: 06/02/20 11:20 Source: patient Mode of arrival: ambulatory Limitations: no limitations - History of Present Illness Initial Comments: 64yo male with history of positive covid test 2 weeks ago, CAD hx, HTN hx presenting for cc of weakness, fevers, SOB. Patietn states that initially when he was diagnosed with covid he was feeling ok and had what he felt were mild symptoms. Pt states that now symptoms seems to be worsening particular body aches, weakness, and fevers. States he has slight SOB, and occasional sharp chest pain with deep inspiration that is not very consistent, Denies chest pressure, arm or jaw pain. Pt denies vomiting, diarrhea, abdominal pain, or rashes. Patient states he just feels "crappy" Remaining ROS (-). Upon arrival he appears nontoxic. - Related Data Home Medications Medication Instructions Recorded Confirmed Gemfibrozil [Lopid] 600 mg PO HS 09/14/17 05/16/19 amLODIPine [Norvasc] 5 mg PO BID 09/14/17 05/16/19 atenoloL [Tenormin] 12.5 mg PO HS 09/14/17 05/16/19 lisinopriL [Zestril] 20 mg PO BID 09/14/17 05/16/19 Previous Rx's Medication Instructions Recorded Aspirin 81 mg PO DAILY #30 chew 05/19/19 Atorvastatin [Lipitor] 80 mg PO HS #30 tab 05/19/19 Clopidogrel [Plavix] 75 mg PO DAILY #30 tab 05/19/19 Nitroglycerin Sl Tabs [Nitrostat] 0.4 mg SUBLINGUAL Q5M PRN #25 tab 05/19/19 Allergies Allergy/AdvReac Type Severity Reaction Status Date / Time No Known Allergies Allergy Verified 06/02/20 11:08 Review of Systems ROS Statement: Those systems with pertinent positive or pertinent negative responses have been documented in the HPI. ROS Other: All systems not noted in ROS Statement are negative. Past Medical History Past Medical History: Coronary Artery Disease (CAD), Hyperlipidemia, Hypertension Additional Past Medical History / Comment(s): PREVIOUS HX OF COLON POLYPS History of Any Multi-Drug Resistant Organisms: None Reported Past Surgical History: Heart Catheterization With Stent, Orthopedic Surgery Additional Past Surgical History / Comment(s): STENT X3, ARM TENDON REPAIR Past Anesthesia/Blood Transfusion Reactions: No Reported Reaction Date of Last Stent Placement:: 12/2010 Past Psychological History: No Psychological Hx Reported Smoking Status: Never smoker Past Alcohol Use History: Occasional Past Drug Use History: None Reported - Past Family History Father Family Medical History: Cancer Additional Family Medical History / Comment(s): COLON General Exam - General Exam Comments Initial Comments: General: The patient is awake and alert, in no distress Eye: +3 mm pupils are equal, round and reactive to light, extra-ocular movements are intact. No nystagmus. There is normal conjunctiva bilaterally. No signs of icterus. Ears, nose, mouth and throat: There are moist mucous membranes and no oral lesions. Neck: The neck is supple, there is no tenderness or JVD. Cardiovascular: There is a regular rate and rhythm. No murmur, rub or gallop is appreciated. Respiratory: Respirations are non-labored, breath sounds are equal. Rhonchi noted. No wheezes, stridor, rales. Gastrointestinal: Soft, non-distended, non-tender abdomen without masses or organomegaly noted. Musculoskeletal: Normal ROM, no tenderness. Strength 5/5. Sensation intact. Radial pulses equal bilaterally 2+. Neurological: A&O x 3. CN II-XII intact grossly, There are no obvious motor or sensory deficits. Coordination appears grossly intact. Speech is normal. Skin: Skin is warm and dry and no rashes or lesions are noted. No LE edema. Psychiatric: Cooperative, appropriate mood & affect, normal judgment. Limitations: no limitations Course Vital Signs 06/02/20 06/02/20 11:06 12:54 Temperature 99.1 F 98.9 F Pulse Rate 75 65 Respiratory 20 18 Rate Blood Pressure 102/54 134/75 O2 Sat by Pulse 94 L 93 L Oximetry Medical Decision Making - Medical Decision Making 64yo male with hx cad presenting today for cc of worsening covid symptons. mildly hypoxic. found to appear dehydrated and have low sodium. will admit for oxygen saturation monitoring and hydration. patient other does not appear in distress. dr. ojeda agreeable to care plan. - Lab Data Result diagrams: 06/02/20 12:24 06/02/20 12:24 Lab Results 06/02/20 06/02/20 06/02/20 Range/Units 12:24 12:24 12:24 WBC 7.6 (3.8-10.6) k/uL RBC 4.64 (4.30-5.90) m/uL Hgb 15.3 (13.0-17.5) gm/dL Hct 43.2 (39.0-53.0) % MCV 93.1 (80.0-100.0) fL MCH 33.0 (25.0-35.0) pg MCHC 35.4 (31.0-37.0) g/dL RDW 11.4 L (11.5-15.5) % Plt Count 155 (150-450) k/uL MPV 8.8 Neutrophils % 89 % Lymphocytes % 5 % Monocytes % 5 % Eosinophils % 0 % Basophils % 1 % Neutrophils # 6.8 (1.3-7.7) k/uL Lymphocytes # 0.4 L (1.0-4.8) k/uL Monocytes # 0.4 (0-1.0) k/uL Eosinophils # 0.0 (0-0.7) k/uL Basophils # 0.0 (0-0.2) k/uL PT 11.2 (9.0-12.0) sec INR 1.1 (<1.2) APTT 26.7 (22.0-30.0) sec D-Dimer 0.90 H (<0.60) mg/L FEU Sodium 128 L (137-145) mmol/L Potassium 4.1 (3.5-5.1) mmol/L Chloride 96 L (98-107) mmol/L Carbon Dioxide 21 L (22-30) mmol/L Anion Gap 11 mmol/L BUN 20 (9-20) mg/dL Creatinine 0.88 (0.66-1.25) mg/dL Est GFR (CKD-EPI)AfAm >90 (>60 ml/min/1.73 sqM) Est GFR (CKD-EPI)NonAf 90 (>60 ml/min/1.73 sqM) Glucose 121 H (74-99) mg/dL Plasma Lactic Acid Jose Ramon (0.7-2.0) mmol/L Calcium 8.5 (8.4-10.2) mg/dL Magnesium 2.2 (1.6-2.3) mg/dL Total Bilirubin 1.3 (0.2-1.3) mg/dL AST 60 H (17-59) U/L ALT 57 H (4-49) U/L Alkaline Phosphatase 59 (38-126) U/L Lactate Dehydrogenase 1046 H (313-618) U/L Troponin I (0.000-0.034) ng/mL C-Reactive Protein 88.9 H (<10.0) mg/L Total Protein 6.3 (6.3-8.2) g/dL Albumin 3.6 (3.5-5.0) g/dL 06/02/20 06/02/20 Range/Units 12:24 12:24 WBC (3.8-10.6) k/uL RBC (4.30-5.90) m/uL Hgb (13.0-17.5) gm/dL Hct (39.0-53.0) % MCV (80.0-100.0) fL MCH (25.0-35.0) pg MCHC (31.0-37.0) g/dL RDW (11.5-15.5) % Plt Count (150-450) k/uL MPV Neutrophils % % Lymphocytes % % Monocytes % % Eosinophils % % Basophils % % Neutrophils # (1.3-7.7) k/uL Lymphocytes # (1.0-4.8) k/uL Monocytes # (0-1.0) k/uL Eosinophils # (0-0.7) k/uL Basophils # (0-0.2) k/uL PT (9.0-12.0) sec INR (<1.2) APTT (22.0-30.0) sec D-Dimer (<0.60) mg/L FEU Sodium (137-145) mmol/L Potassium (3.5-5.1) mmol/L Chloride (98-107) mmol/L Carbon Dioxide (22-30) mmol/L Anion Gap mmol/L BUN (9-20) mg/dL Creatinine (0.66-1.25) mg/dL Est GFR (CKD-EPI)AfAm (>60 ml/min/1.73 sqM) Est GFR (CKD-EPI)NonAf (>60 ml/min/1.73 sqM) Glucose (74-99) mg/dL Plasma Lactic Acid Jose Ramon 1.8 (0.7-2.0) mmol/L Calcium (8.4-10.2) mg/dL Magnesium (1.6-2.3) mg/dL Total Bilirubin (0.2-1.3) mg/dL AST (17-59) U/L ALT (4-49) U/L Alkaline Phosphatase (38-126) U/L Lactate Dehydrogenase (313-618) U/L Troponin I <0.012 (0.000-0.034) ng/mL C-Reactive Protein (<10.0) mg/L Total Protein (6.3-8.2) g/dL Albumin (3.5-5.0) g/dL - EKG Data EKG Comments: Ventricular rate 70 bpm, NE interval 152 ms, QRS station 88 ms, QT/QTC 376/406 ms. Normal sinus left axis noted no ST elevation or depression appreciated Disposition Clinical Impression: Dyspnea, Hypoxia, Hyponatremia, Weakness, COVID-19 Disposition: ADMITTED IP TO THIS HOSP Condition: Stable Is patient prescribed a controlled substance at d/c from ED?: No Referrals: Issac Cummings MD [Primary Care Provider] - 1-2 days Time of Disposition: 14:06 Decision to Admit Reason: Admit from EC Decision Date: 06/02/20 Decision Time: 14:06
[2020-06-02 12:52] LABS: Basophils % (A) 1 %; Eosinophils % (A) 0 %; HCT 43.2 % (39.0-53.0); HGB 15.3 gm/dL (13.0-17.5); Lymphocytes # (A) 0.4 k/uL (1.0-4.8); Lymphocytes % (A) 5 %; MCHC 35.4 g/dL (31.0-37.0); MCV 93.1 fL (80.0-100.0); Mean Platelet Volume 8.8; Monocytes # (A) 0.4 k/uL (0-1.0); Monocytes % (A) 5 %; Neutrophils # (A) 6.8 k/uL (1.3-7.7); Neutrophils % (A) 89 %; Platelet Count 155 k/uL (150-450); RBC 4.64 m/uL (4.30-5.90); RDW 11.4 % (11.5-15.5); WBC 7.6 k/uL (3.8-10.6)
[2020-06-02 13:02] LABS: ALT 57 U/L (4-49); AST 60 U/L (17-59); African American GFR (CKD) >90 (>60 ml/min/1.73 sqM); Albumin 3.6 g/dL (3.5-5.0); Alkaline Phosphatase 59 U/L (38-126); Anion Gap 11 mmol/L; Blood Urea Nitrogen 20 mg/dL (9-20); C Reactive Protein 88.9 mg/L (<10.0); Calcium 8.5 mg/dL (8.4-10.2); Carbon Dioxide 21 mmol/L (22-30); Chloride 96 mmol/L (98-107); Glucose 121 mg/dL (74-99); LDH 1046 U/L (313-618); Magnesium 2.2 mg/dL (1.6-2.3); Non-African American GFR(CKD) 90 (>60 ml/min/1.73 sqM); Potassium 4.1 mmol/L (3.5-5.1); Sodium 128 mmol/L (137-145); Total Bilirubin 1.3 mg/dL (0.2-1.3); Total Protein 6.3 g/dL (6.3-8.2)
[2020-06-02 13:04] LABS: INR 1.1 (<1.2); Partial Thromboplastin Time 26.7 sec (22.0-30.0); Prothrombin Time 11.2 sec (9.0-12.0)
[2020-06-02 13:14] LABS: D-Dimer 0.9 mg/L FEU (<0.60)
--- NOTE | 2020-06-02 13:53 | CT ---
EXAMINATION TYPE: CT chest angio for PE DATE OF EXAM: 06/02/2020 COMPARISON: Same-day radiograph. HISTORY: positive covid, elevated d dimer CT DLP: 382.8 mGycm Automated exposure control for dose reduction was used. CONTRAST: CT Chest for pulmonary embolism performed with with IV Contrast, patient injected with 100 mL of Isov ue 370. FINDINGS: LUNGS: There is bilateral diffuse moderate patchy ground glass opacities most pronounced in the mid t o lower lungs. There is no pleural effusion or pneumothorax seen. The tracheobronchial tree is pat ent. MEDIASTINUM: There is satisfactory enhancement of the pulmonary artery and its branches, there is no CT evidence for pulmonary embolism. There are no greater than 1 cm hilar or mediastinal lymph nodes. No pericardial effusion is seen. OTHER: No additional significant abnormality is seen. IMPRESSION: No acute PE. Bilateral diffuse ground glass opacities, consistent with chronicCovid pneumonia.
[2020-06-02] MEDS ORDERED: SODIUM CHLORIDE 0.9% 500 ML 500 ML IV ONE (13:57)
[2020-06-02] MEDS ORDERED: NALOXONE 0.4 MG/ML 1 ML VIAL IV PRN (14:04)
[2020-06-02] MEDS ORDERED: dexAMETHasone 2 MG TAB PO STA (14:17)
[2020-06-02] MEDS ORDERED: ENOXAPARIN 40 MG/0.4 ML SYRINGE SQ STA (14:18)
[2020-06-02] MEDS: SODIUM CHLORIDE 0.9% 1,000 ML IV SCH ×2 (14:38→21:07)
--- NOTE | 2020-06-02 17:58 | P.CNPUL ---
History of Present Illness Consult date: 06/02/20 Reason for consult: dyspnea History of present illness: 63-year-old male patient coming in for Covid 19 related pneumonia and complications. The patient had a positive test approximately 2 weeks ago. He hasn't getting progressively more weak. His been having fevers and shortness of breath. Apparently the patient initially had mild symptoms and his condition progressed. He is having body aches and weakness and fever. He is also slightl y short of breath. No nausea. No vomiting. No diarrhea. No abdominal pain.. The patient has on the CT angiogram. The patient also has hazy infiltrates on his chest x-ray. White cell count is at 7.6 with a component of lymphopenia with a lymphocyte count of 0.4. The patient had a d-dimer of 0.9 with a normal coagulation profile pain sodium is at 128, BUN is at 20 with a creatinine of 0.8, glucose is 121, LFTs are showing an AST of 60, ALT of 57, LDH of 1046, CRP of 18.9, troponins are negative. At this point in time the patient on 2 L about 2 by nasal cannula with a pulse ox of 93%. His temperature is 98.9. He is receiving IV fluids with normal state rate of 130s is an hour. He was started on oral Decadron. Review of Systems Constitutional: Reports fatigue, Reports fever, Reports lethargy, Reports poor appetite, Reports weakness, Reports weight loss Eyes: denies as per HPI, denies blurred vision, denies bulging eye, denies decreased vision, denies diplopia, denies discharge, denies dry eye, denies irritation, denies itching, denies pain, denies photophobia, denies loss of peripheral vision, denies loss of vision, denies tunnel vision/blind spots Ears: deny: decreased hearing, ear discharge, earache, tinnitus Ears, nose, mouth and throat: Reports as per HPI Cardiovascular: Reports dyspnea on exertion Respiratory: Reports cough, Reports dyspnea Gastrointestinal: Reports as per HPI Genitourinary: Reports as per HPI Musculoskeletal: Reports as per HPI Musculoskeletal: absent: ankle pain, ankle stiffness, ankle swelling Neurological: Reports as per HPI, Reports weakness Psychiatric: Reports as per HPI, Reports confusion Hematologic/Lymphatic: Reports as per HPI Allergic/Immunologic: Reports as per HPI Past Medical History Past Medical History: Coronary Artery Disease (CAD), Hyperlipidemia, Hypertension Additional Past Medical History / Comment(s): PREVIOUS HX OF COLON POLYPS History of Any Multi-Drug Resistant Organisms: None Reported Past Surgical History: Heart Catheterization With Stent, Orthopedic Surgery Additional Past Surgical History / Comment(s): STENT X3, ARM TENDON REPAIR Past Anesthesia/Blood Transfusion Reactions: No Reported Reaction Date of Last Stent Placement:: 12/2010 Past Psychological History: No Psychological Hx Reported Smoking Status: Never smoker Past Alcohol Use History: Occasional Past Drug Use History: None Reported - Past Family History Father Family Medical History: Cancer Additional Family Medical History / Comment(s): COLON Medications and Allergies Home Medications Medication Instructions Recorded Confirmed Type amLODIPine [Norvasc] 5 mg PO BID 09/14/17 06/02/20 History atenoloL [Tenormin] 12.5 mg PO HS 09/14/17 06/02/20 History lisinopriL [Zestril] 20 mg PO BID 09/14/17 06/02/20 History Aspirin 81 mg PO DAILY #30 chew 05/19/19 06/02/20 Rx Atorvastatin [Lipitor] 80 mg PO HS #30 tab 05/19/19 06/02/20 Rx Clopidogrel [Plavix] 75 mg PO DAILY #30 tab 05/19/19 06/02/20 Rx Nitroglycerin Sl Tabs [Nitrostat] 0.4 mg SUBLINGUAL Q5M PRN #25 tab 05/19/19 06/02/20 Rx Allergies Allergy/AdvReac Type Severity Reaction Status Date / Time No Known Allergies Allergy Verified 06/02/20 14:31 Physical Exam Vitals: Vital Signs Temp Pulse Resp BP Pulse Ox 06/02/20 13:00 18 06/02/20 12:54 98.9 F 65 18 134/75 93 L 06/02/20 11:06 99.1 F 75 20 102/54 94 L Intake and Output 06/02/20 06/02/20 06/02/20 06:59 14:59 22:59 Other: Weight 90.718 kg The patient appeared well nourished and normally developed. Vital signs as documented. Head exam is unremarkable. No scleral icterus or corneal arcus noted. Neck is without jugular venous distension, thyromegaly, or carotid bruits. Carotid upstrokes are brisk bilaterally. Lungs are clear to auscultation and percussion. Faint crackles can be up she the lung bases bilaterally. Cardiac exam reveals the PMI to be normally sized and situated. Rhythm is regular. First and second heart sounds normal. No murmurs, rubs or gallops. A bdominal exam reveals normal bowel sounds, no masses, no organomegaly and no aortic enlargement. Extremities are nonedematous and both femoral and pedal pulses are normal.Examination of the skin revealed no evidence of significant rashes, suspicious appearing nevi or other concerning lesions.Neurologically, the patient is awake and alert and the patient does not have any focal neurological deficit. Cranial nerves are essentially intact. Results - Laboratory Findings CBC and BMP: 06/02/20 12:24 06/02/20 12:24 PT/INR, D-dimer PT 11.2 sec (9.0-12.0) 06/02/20 12:24 INR 1.1 (<1.2) 06/02/20 12:24 D-Dimer 0.90 mg/L FEU (<0.60) H 06/02/20 12:24 Abnormal lab findings: Abnormal Labs 06/02/20 06/02/20 06/02/20 12:24 12:24 12:24 RDW 11.4 L Lymphocytes # 0.4 L D-Dimer 0.90 H Sodium 128 L Chloride 96 L Carbon Dioxide 21 L Glucose 121 H AST 60 H ALT 57 H Lactate Dehydrogenase 1046 H C-Reactive Protein 88.9 H - Diagnostic Findings Chest x-ray: image reviewed CT scan - chest: image reviewed Assessment and Plan Plan: 1 acute Covid likely related pneumonia. The patient has some limited groundless by the pulmonary infiltrates on the CAT scan of the chest and the patient was somewhat hypoxemic currently on 2 L of oxygen by nasal cannula with a pulse ox of 93%. 2 constitutions symptoms secondary to Covid 19 infection 3 dyspnea secondary to above 4 acute hypoxic respiratory failure secondary to above 5 lymphopenia secondary to above 6 hyponatremia with a sodium level of 128 7 abnormal LFTs secondary to above 8 coronary artery disease 9 hypertension 10 hyperlipidemia 11 chronic migraines 13 previous history of PCI and stent placement for coronary artery disease including stenting of RCA and circumflex back in 2010. Plan Continue oral Decadron Monitor the oxygenation currently on 2 L of oxygen by nasal cannula Monitor inflammatory markers Patient is out of the window for Remdesivir treatment Continue the supplements including zinc, vitamin C, Pepcid, and melatonin Resume home medication will continue to follow.
[2020-06-02] MEDS ORDERED: ENOXAPARIN 40 MG/0.4 ML SYRINGE SQ SCH (18:00)
[2020-06-02] MEDS: ASCORBIC ACID 500 MG TAB PO SCH (19:06)
[2020-06-02] MEDS: ZINC SULFATE 220 MG CAP PO SCH (19:07)
[2020-06-02] MEDS ORDERED: atenoloL 25 MG TAB PO SCH (21:00)
[2020-06-02] MEDS: lisinopriL 20 MG TAB PO SCH (21:07)
[2020-06-02] MEDS: MELATONIN 5 MG TABLET PO SCH (21:07)
[2020-06-02] MEDS: amLODIPine 5 MG TAB PO SCH (21:07)
[2020-06-02] MEDS: ATORVASTATIN 80 MG TAB PO SCH (21:07)
[2020-06-02] MEDS: FAMOTIDINE 20 MG TAB PO SCH (21:07)
[2020-06-02] MEDS ORDERED: ACETAMINOPHEN TAB 325 MG TAB PO PRN (21:47)
[2020-06-02 23:31] LABS: Ferritin 1434.4 ng/mL (22.0-322.0)
[2020-06-03] MEDS: DILTIAZEM 125 MG in SODIUM CHLORIDE 0.9% 100 ML IV SCH ×2 (03:57→21:32)
[2020-06-03] MEDS: SODIUM CHLORIDE 0.9% 1,000 ML IV SCH ×3 (04:06→21:06)
[2020-06-03 07:20] LABS: Basophils % (A) 1 %; Eosinophils % (A) 0 %; HCT 40.5 % (39.0-53.0); HGB 14.5 gm/dL (13.0-17.5); Lymphocytes # (A) 0.5 k/uL (1.0-4.8); Lymphocytes % (A) 8 %; MCH 33.7 pg (25.0-35.0); MCHC 35.8 g/dL (31.0-37.0); MCV 93.9 fL (80.0-100.0); Mean Platelet Volume 8.5; Monocytes # (A) 0.5 k/uL (0-1.0); Monocytes % (A) 8 %; Neutrophils # (A) 5.2 k/uL (1.3-7.7); Neutrophils % (A) 81 %; Platelet Count 194 k/uL (150-450); RBC 4.31 m/uL (4.30-5.90); RDW 11.4 % (11.5-15.5); WBC 6.4 k/uL (3.8-10.6)
[2020-06-03] MEDS ORDERED: ASPIRIN 81 MG PO SCH (09:00)
[2020-06-03] MEDS: lisinopriL 20 MG TAB PO SCH (09:40)
[2020-06-03] MEDS: CLOPIDOGREL 75 MG TAB PO SCH (09:40)
[2020-06-03] MEDS: FAMOTIDINE 20 MG TAB PO SCH ×2 (09:41→21:06)
[2020-06-03] MEDS: dexAMETHasone 2 MG TAB PO SCH (09:41)
[2020-06-03] MEDS: ZINC SULFATE 220 MG CAP PO SCH (09:41)
[2020-06-03] MEDS: ASCORBIC ACID 500 MG TAB PO SCH (09:41)
[2020-06-03] MEDS: amLODIPine 5 MG TAB PO SCH (09:41)
[2020-06-03 10:06] LABS: African American GFR (CKD) 107.9 (60.0-200.0); Albumin 3.2 g/dL (3.80-4.90); Anion Gap 7.6 mmol/L (4.00-12.00); BUN/Creat Ratio 27.5 Ratio (12.00-20.00); C Reactive Protein 6.9 mg/dL (0.0-0.8); Carbon Dioxide 23.4 mmol/L (21.6-31.8); Globulin 1.6 g/dL (1.6-3.3); Non-African American GFR(CKD) 93.1 (60.0-200.0); Potassium 3.9 mmol/L (3.5-5.5); Total Bilirubin 0.7 mg/dL (0.3-1.2); Total Protein 4.8 g/dL (6.2-8.2)
[2020-06-03] MEDS ORDERED: HEPARIN SODIUM,PORCINE 5,000 UNIT/ML 1 ML VIAL IV ONE (11:01)
[2020-06-03] MEDS ORDERED: HEPARIN SODIUM,PORCINE 5,000 UNIT/ML 1 ML VIAL IV PRN (11:01)
[2020-06-03 11:55] LABS: INR 1.1 (<1.2); Partial Thromboplastin Time 27.8 sec (22.0-30.0); Prothrombin Time 11.3 sec (9.0-12.0)
--- NOTE | 2020-06-03 11:56 | P.HPIM ---
History of Present Illness H&P Date: 06/03/20 HISTORY OF PRESENT ILLNESS This is a 64-year-old male patient of Dr. Cummings with past medical history of coronary artery disease with previous stenting most recently in May 2018, hypertension, hyperlipidemia. Patient had Coumadin 19 positive test done 2 weeks ago but has been continuing to have fevers, shortness of breath, generalized weakness and malaise. Symptoms continued to worsen with increasing shortness of breath. He denies any nausea vomiting or diarrhea but did have decreased appetite which is improved this morning. Patient came into [facility] emergency center for evaluation. Chest x-ray revealed moderate perihilar opacities, consistent with infiltrate. CTA of the chest was negative for PE. Bilateral diffuse groundglass opacities consistent with chronic opiate pneumonia was present. Patient was afebrile, heart rate 75, blood pressure 102/54, pulse ox 94% on room air. WBC 7.6, hemoglobin 15.3. Lymphocytes low at 0.4. D-dimer 0.9. Sodium 128, potassium 4.1, chloride 96, CO2 21, creatinine 0.88. Blood sugar 121. Ferritin 1434, magnesium 2.2. Lactic acid 1.8. Total bilirubin 1.3, AST 60, ALT 57, alkaline phosphatase 15 9. LDH 1046. Troponin negative. C-reactive protein initially 88.9 her repeat of 6.9. Pro-calcitonin 0.13. Patient was admitted to the MedSurg floor and seen by pulmonary medicine and continued on Lovenox dexamethasone and vitamin supplements. Patient subsequently went into A. fib with RVR and started on heparin drip and Cardizem drip, transferred to the cardiac stepdown unit. Cardiology consult added. Patient is currently pulse oxing 92% on room air. REVIEW OF SYSTEMS Constitutional: Reports fever, Reports chills, Reports sweats. No weight alvares ge. Reports weakness, Reports fatigue Reports lethargy. Reportsdaytime sleepiness. EENT: No headache. No blurred vision or double vision, no loss of vision. No loss of Hearing, no ringing in the ears, Reports dizziness. No nasal drainage or congestion. No epistaxis. Reports sore throat. Lungs: Reports shortness of breath, Reportscough, no sputum production. No wheezing. Cardiovascular: No chest pain, no lower extremity edema. No palpitations. No paroxysmal nocturnal dyspnea. No orthopnea. Reports lightheadedness or dizziness. No syncopal episodes. Abdominal: No abdominal pain. No nausea, vomiting. No diarrhea. No constipation. No bloody or tarry stools. No loss of appetite. Genitourinary: No dysuria, increased frequency, urgency. No urinary retention. Musculoskeletal: No myalgias. Reports muscle weakness, no gait dysfunction, no frequent falls. No back pain. No neck pain. Integumentary: No wounds, no lesions. No rash or pruritus. Neurologic: No aphasia. No facial droop. No change in mentation. No head injury. No headache. No paralysis. No paresthesia. Psychiatric: No depression. No anxiety. Endocrine: No abnormal blood sugars. PHYSICAL EXAMINATION Gen: This is a 64-year-old male. His resting in bed and appears comf ortable. No acute respiratory distress is noted. HEENT: Head is atraumatic, normocephalic. Pupils equal, round. Sclerae is anicteric. NECK: Supple. No JVD. No lymphadenopathy. No thyromegaly. LUNGS: Clear to auscultation. Diminished in bilateral bases. No intercostal retractions. HEART: Irregular rate and rhythm. No murmur. ABDOMEN: Soft. Bowel sounds are present. No masses. No tenderness. EXTREMITIES: No pedal edema. No calf tenderness. Dorsalis pedis +2 bilaterally. NEUROLOGICAL: Patient is awake, alert and oriented x3. Cranial nerves 2 through 12 are grossly intact. ASSESSMENT AND PLAN 1. Acute COVID-19 pneumonia. No plan for Remdesivir treatment. Continue vitamin C, vitamin D, dexamethasone 6 mg daily, zinc, heparin drip. 2. New onset atrial fibrillation, paroxysmal atrial fibrillation. Patient has been started on Cardizem drip and heparin drip, cardiology consult. Lopressor 50 mg twice daily. 3. Elevated liver function tests secondary to Covid 19 infection. 4. Hyponatremia secondary to dehydration from Covid 19. Patient is status post IV fluid bolus of 500 and continue IV fluids. 5. Hypertension. Continue lisinopril 10 mg twice daily and Lopressor. 6. History of coronary artery disease. Continue aspirin 81 mg daily, Plavix 75 mg daily, Lipitor 80 mg daily, beta tony and SHIRLEY inhibitor. Cardiology consult. 7. Hyperlipidemia. Continue Lipitor 80 mg at bedtime. 8. GI prophylaxis. Pepcid 20 mg twice daily. Patient will be admitted to the hospital for a minimum of 2 night stay. DISCHARGE PLAN Return home. Impression and plan of care have been directed as dictated by the signing neha rausch. Sravanthi Pimentel nurse practitioner acting as scribe for signing physician. Past Medical History Past Medical History: Coronary Artery Disease (CAD), Hyperlipidemia, Hypertension Additional Past Medical History / Comment(s): Colon polyps in past History of Any Multi-Drug Resistant Organisms: None Reported Past Surgical History: Heart Catheterization With Stent, Orthopedic Surgery Additional Past Surgical History / Comment(s): stent X3 2010, May 2019 1 additional stent put in, right arm tendon repiar Past Anesthesia/Blood Transfusion Reactions: No Reported Reaction Date of Last Stent Placement:: 05/2019 Past Psychological History: No Psychological Hx Reported Smoking Status: Never smoker Past Alcohol Use History: Occasional Additional Past Alcohol Use History / Comment(s): QUIT SMOKING >20 YRS AGO, SMOKED 1 AND 1/2PPD FOR 10YRS Past Drug Use History: None Reported - Past Family History Father Family Medical History: Cancer Additional Family Medical History / Comment(s): COLON Medications and Allergies Home Medications Medication Instructions Recorded Confirmed Type amLODIPine [Norvasc] 5 mg PO BID 09/14/17 06/02/20 History atenoloL [Tenormin] 12.5 mg PO HS 09/14/17 06/02/20 History lisinopriL [Zestril] 20 mg PO BID 09/14/17 06/02/20 History Aspirin 81 mg PO DAILY #30 chew 05/19/19 06/02/20 Rx Atorvastatin [Lipitor] 80 mg PO HS #30 tab 05/19/19 06/02/20 Rx Clopidogrel [Plavix] 75 mg PO DAILY #30 tab 05/19/19 06/02/20 Rx Nitroglycerin Sl Tabs [Nitrostat] 0.4 mg SUBLINGUAL Q5M PRN #25 tab 05/19/19 06/02/20 Rx Allergies Allergy/AdvReac Type Severity Reaction Status Date / Time No Known Allergies Allergy Verified 06/02/20 14:31 Physical Exam Vitals: Vital Signs Temp Pulse Pulse Resp BP BP Pulse Ox 06/03/20 04:00 98.0 F 110 H 18 115/62 92 L 06/03/20 02:00 97.9 F 144 H 16 104/71 92 L 06/02/20 22:17 98.0 F 64 18 124/76 91 L 06/02/20 21:10 18 06/02/20 19:25 98.3 F 78 16 119/78 93 L 06/02/20 19:15 98.3 F 72 18 126/78 98 06/02/20 18:03 69 18 137/68 98 06/02/20 13:00 18 06/02/20 12:54 98.9 F 65 18 134/75 93 L 06/02/20 11:06 99.1 F 75 20 102/54 94 L Intake and Output 06/02/20 06/03/20 06/03/20 22:59 06:59 14:59 Intake Total 390 520 360 Balance 390 520 360 Intake: Intake, IV Titration 390 520 Amount Sodium Chloride 0.9% 1, 390 520 000 ml @ 130 mls/hr IV . [id number] [facility] Rx#:[id number] Oral 360 Other: Weight 90.718 kg 89.4 kg Results CBC & Chem 7: 06/03/20 07:05 06/03/20 07:05 Labs: Abnormal Lab Results - Last 24 Hours (Table) 06/02/20 06/02/20 06/02/20 Range/Units 12:24 12:24 12:24 RDW 11.4 L (11.5-15.5) % Lymphocytes # 0.4 L (1.0-4.8) k/uL D-Dimer 0.90 H (<0.60) mg/L FEU Sodium 128 L (137-145) mmol/L Chloride 96 L (98-107) mmol/L Carbon Dioxide 21 L (22-30) mmol/L Glucose 121 H (74-99) mg/dL Ferritin 1434.4 H (22.0-322.0) ng/mL AST 60 H (17-59) U/L ALT 57 H (4-49) U/L Lactate Dehydrogenase 1046 H (313-618) U/L C-Reactive Protein 88.9 H (<10.0) mg/L Procalcitonin (0.02-0.09) ng/mL 06/02/20 06/03/20 Range/Units 12:24 07:05 RDW 11.4 L (11.5-15.5) % Lymphocytes # 0.5 L (1.0-4.8) k/uL D-Dimer (<0.60) mg/L FEU Sodium (137-145) mmol/L Chloride (98-107) mmol/L Carbon Dioxide (22-30) mmol/L Glucose (74-99) mg/dL Ferritin (22.0-322.0) ng/mL AST (17-59) U/L ALT (4-49) U/L Lactate Dehydrogenase (313-618) U/L C-Reactive Protein (<10.0) mg/L Procalcitonin 0.13 H (0.02-0.09) ng/mL Thrombosis Risk Factor Assmnt - Choose All That Apply Any of the Below Risk Factors Present?: No Other Risk Factors: Yes Each Risk Factor Represents 2 Points: Age 61-74 years Thrombosis Risk Factor Assessment Total Risk Factor Score: 2 Thrombosis Risk Factor Assessment Level: Low Risk
--- NOTE | 2020-06-03 12:01 | P.CRDCN ---
History of Present Illness History of present illness: HISTORY OF PRESENTING ILLNESS This is a pleasant 64-year-old male past medical history significant for coronary artery disease status post PCI to the distal RCA in 2011 in mid PLV branch in 2019, hypertension and dyslipidemia. He follows in the office with Dr. Oswald. We have been asked to see in consultation for onset atrial fibrillation. Sensitivity to the hospital with symptoms of weakness, fever and shortness of breath. He is positive for Covid 19. On admission EKG revealed sinus mechanism however last night telemetry tracings indicated he went into atrial fibrillation with rapid ventricular rate. He was initiated on a Cardizem infusion. He continues to be in A. fib at this time with controlled rates. He denies symptoms of chest pain, dizziness or palpitations. He states his breathing is more labored than normal but not significantly short of breath. Chest x-ray reveals moderate perihilar opacity consistent with an infiltrate. CT angio is negative for PE with bilateral diffuse ground glass opacity is consistent with Covid pneumonia. Laboratory data reviewed, CBC unremarkable, d- dimer 0.9, sodium 133, potassium 3.9, creatinine 0.8, cardiac enzymes negative 1, magnesium 2.2 and pro-calcitonin 0.13. Most recent echocardiogram obtained in the office revealed preserved LV systolic function with ejection fraction 55- 60%. Home cardiac medications include aspirin 81 mg daily, Plavix 75 mg daily, atorvastatin 80 mg daily, amlodipine 5 mg twice a day, atenolol 12.5 mg at bedtime and lisinopril 20 mg twice a day. REVIEW OF SYSTEMS At the time of my exam: CONSTITUTIONAL: Denies fever or chills. CARDIOVASCULAR: Denies chest pain, shortness of breath, orthopnea, PND or palpitations. RESPIRATORY: Denies cough. GASTROINTESTINAL: Denies abdominal pain, diarrhea, constipation, nausea or vomiting. MUSCULOSKELETAL: Denies myalgias. NEUROLOGIC: Denies numbness, tingling or weakness. ENDOCRINE: Denies fatigue, weight change, polydipsia or polyurina. GENITOURINARY: Denies burning, hematuria or urgency with micturation. HEMATOLOGIC: Denies history of anemia or bleeding. PHYSICAL EXAMINATION Blood pressure 115/62 heart rate 110 afebrile and maintaining oxygen saturation on room air. CONSTITUTIONAL: No apparent distress. HEENT: Head is normocephalic. Pupils are equal, round. Sclerae anicteric. Mucous membranes of the mouth are moist. No JVD. No carotid bruit. CHEST EXAMINATION: Lungs are clear to auscultation. No chest wall tenderness is noted on palpation or with deep breathing. Diminished bilaterally. HEART EXAMINATION: Irregular rate and rhythm. S1, S2 heard. No murmurs, gallops or rub. ABDOMEN: Soft, nontender. Positive bowel sounds. EXTREMITIES: 2+ peripheral pulses, no lower extremity edema and no calf tenderness. NEUROLOGIC EXAMINATION: Patient is awake, alert and oriented x3. ASSESSMENT New-onset paroxysmal atrial fibrillation with rapid ventricular rate Covid 19 Coronary artery disease status post PCI May 2019 maintained on dual antiplatelet therapy Hypertension Dyslipidemia PLAN Continue heparin infusion for another 24 hours, tomorrow we will consider initiating oral anticoagulation. Discontinue atenolol and initiate Lopressor 50 mg twice a day. Decrease lisinopril to 10 mg twice a day. Discontinue Cardizem infusion after first dose of Lopressor is given. Decrease amlodipine to 5 mg at bedtime. Discontinue aspirin and continue Plavix. Ongoing telemetry monitoring. Further recommendations to follow based upon clinical course. Thank you kindly for this consultation. Nurse Practitioner note has been reviewed, I agree with a documented findings and plan of care. Patient was seen and examined. Past Medical History Past Medical History: Coronary Artery Disease (CAD), Hyperlipidemia, Hypertension Additional Past Medical History / Comment(s): Colon polyps in past History of Any Multi-Drug Resistant Organisms: None Reported Past Surgical History: Heart Catheterization With Stent, Orthopedic Surgery Additional Past Surgical History / Comment(s): stent X3 2010, May 2019 1 additional stent put in, right arm tendon repiar Past Anesthesia/Blood Transfusion Reactions: No Reported Reaction Date of Last Stent Placement:: 05/2019 Past Psychological History: No Psychological Hx Reported Smoking Status: Never smoker Past Alcohol Use History: Occasional Additional Past Alcohol Use History / Comment(s): QUIT SMOKING >20 YRS AGO, SMOKED 1 AND 1/2PPD FOR 10YRS Past Drug Use History: None Reported - Past Family History Father Family Medical History: Cancer Additional Family Medical History / Comment(s): COLON Medications and Allergies Home Medications Medication Instructions Recorded Confirmed Type amLODIPine [Norvasc] 5 mg PO BID 09/14/17 06/02/20 History atenoloL [Tenormin] 12.5 mg PO HS 09/14/17 06/02/20 History lisinopriL [Zestril] 20 mg PO BID 09/14/17 06/02/20 History Aspirin 81 mg PO DAILY #30 chew 05/19/19 06/02/20 Rx Atorvastatin [Lipitor] 80 mg PO HS #30 tab 05/19/19 06/02/20 Rx Clopidogrel [Plavix] 75 mg PO DAILY #30 tab 05/19/19 06/02/20 Rx Nitroglycerin Sl Tabs [Nitrostat] 0.4 mg SUBLINGUAL Q5M PRN #25 tab 05/19/19 06/02/20 Rx Allergies Allergy/AdvReac Type Severity Reaction Status Date / Time No Known Allergies Allergy Verified 06/02/20 14:31 Physical Exam Vitals: Vital Signs Temp Pulse Pulse Resp BP BP Pulse Ox 06/03/20 04:00 98.0 F 110 H 18 115/62 92 L 06/03/20 02:00 97.9 F 144 H 16 104/71 92 L 06/02/20 22:17 98.0 F 64 18 124/76 91 L 06/02/20 21:10 18 06/02/20 19:25 98.3 F 78 16 119/78 93 L 06/02/20 19:15 98.3 F 72 18 126/78 98 06/02/20 18:03 69 18 137/68 98 06/02/20 13:00 18 06/02/20 12:54 98.9 F 65 18 134/75 93 L Intake and Output 06/02/20 06/03/20 06/03/20 22:59 06:59 14:59 Intake Total 390 520 360 Balance 390 520 360 Intake: Intake, IV Titration 390 520 Amount Sodium Chloride 0.9% 1, 390 520 000 ml @ 130 mls/hr IV . Q7H42M [facility] Rx#:[id number] Oral 360 Other: Weight 90.718 kg 89.4 kg Results 06/03/20 07:05 06/03/20 07:05 Cardiac Enzymes 06/02/20 06/02/20 06/03/20 Range/Units 12:24 12:24 07:05 AST 60 H 62 H (17-59) U/L Lactate Dehydrogenase 1046 H 229 (313-618) U/L Troponin I <0.012 (0.000-0.034) ng/mL Coagulation 06/02/20 Range/Units 12:24 PT 11.2 (9.0-12.0) sec APTT 26.7 (22.0-30.0) sec CBC 06/02/20 06/03/20 Range/Units 12:24 07:05 WBC 7.6 6.4 (3.8-10.6) k/uL RBC 4.64 4.31 (4.30-5.90) m/uL Hgb 15.3 14.5 (13.0-17.5) gm/dL Hct 43.2 40.5 (39.0-53.0) % Plt Count 155 194 (150-450) k/uL Comprehensive Metabolic Panel 06/02/20 06/03/20 Range/Units 12:24 07:05 Sodium 128 L 133 L (137-145) mmol/L Potassium 4.1 3.9 (3.5-5.1) mmol/L Chloride 96 L 102 (98-107) mmol/L Carbon Dioxide 21 L 23.4 (22-30) mmol/L BUN 20 22.0 (9-20) mg/dL Creatinine 0.88 0.8 (0.66-1.25) mg/dL Glucose 121 H 149 H (74-99) mg/dL Calcium 8.5 8.0 L (8.4-10.2) mg/dL AST 60 H 62 H (17-59) U/L ALT 57 H 89 H (4-49) U/L Alkaline Phosphatase 59 55 (38-126) U/L Total Protein 6.3 4.8 L (6.3-8.2) g/dL Albumin 3.6 3.20 L (3.5-5.0) g/dL Current Medications Generic Name Dose Route Start Last Admin Trade Name Freq PRN Reason Stop Dose Admin Acetaminophen 650 mg 06/02/20 21:47 Acetaminophen Tab 325 Mg Tab PO Q4HR PRN Fever and/ or Pain Amlodipine Besylate 5 mg 06/03/20 21:00 Amlodipine 5 Mg Tab PO HS [facility] Ascorbic Acid 1,000 mg 06/02/20 18:00 06/03/20 09:41 Ascorbic Acid 500 Mg Tab PO 1,000 mg DAILY [facility] Administration Aspirin 81 mg 06/03/20 09:00 11/22/20 09:41 Aspirin 81 Mg PO 81 mg DAILY [facility] Administration Atorvastatin Calcium 80 mg 06/02/20 21:00 06/02/20 21:07 Atorvastatin 80 Mg Tab PO 80 mg HS [facility] Administration Cholecalciferol 1,000 unit 06/03/20 11:00 Cholecalciferol 1,000 Unit Tab PO DAILY [facility] Clopidogrel Bisulfate 75 mg 06/03/20 09:00 06/03/20 09:40 Clopidogrel 75 Mg Tab PO 75 mg DAILY [facility] Administration Dexamethasone 6 mg 06/03/20 09:00 06/03/20 09:41 Dexamethasone 2 Mg Tab PO 06/13/20 09:01 6 mg DAILY [facility] Administration Famotidine 20 mg 06/02/20 21:00 06/03/20 09:41 Famotidine 20 Mg Tab PO 20 mg BID [facility] Administration Heparin Sodium (Porcine) 0 unit 06/03/20 11:01 Heparin Sodium,Porcine 5,000 Unit/Ml 1 Ml Vial IV PER PROTOCOL PRN Low PTT Protocol Sodium Chloride 1,000 mls @ 130 mls/hr 06/02/20 14:00 06/03/20 04:06 Saline 0.9% IV 130 mls/hr .Q7H42M [facility] Administration Diltiazem HCl 125 mg/ Sodium 125 mls @ 5 mls/hr 06/03/20 02:45 06/03/20 03:57 Chloride IV 5 mg/hr .Q24H [facility] 5 mls/hr Administration 5 MG/HR Heparin Sodium/Sodium Chloride 250 mls @ 9.995 mls/hr 06/03/20 11:15 25,000 unit/ Sodium Chloride IV .Q24H [facility] Protocol 11.18 UNITS/KG/HR Lisinopril 10 mg 06/03/20 21:00 Lisinopril 20 Mg Tab [address] [facility] Melatonin 5 mg 06/02/20 21:00 06/02/20 21:07 Melatonin 5 Mg Tablet PO 5 mg HS [facility] Administration Metoprolol Tartrate 50 mg 06/03/20 11:30 Metoprolol Tartrate 50 Mg Tab PO BID [facility] Naloxone HCl 0.2 mg 06/02/20 14:04 Naloxone 0.4 Mg/Ml 1 Ml Vial IV Q2M PRN Opioid Reversal Zinc Sulfate 220 mg 06/02/20 18:00 06/03/20 09:41 Zinc Sulfate 220 Mg Cap PO 220 mg DAILY [facility] Administration Intake and Output 06/02/20 06/03/20 06/03/20 22:59 06:59 14:59 Intake Total 390 520 360 Balance 390 520 360 Intake: Intake, IV Titration 390 520 Amount Sodium Chloride 0.9% 1, 390 520 000 ml @ 130 mls/hr IV . Q7H42M [facility] Rx#:[id number] Oral 360 Other: Weight 90.718 kg 89.4 kg 06/03/20 07:05 06/03/20 07:05
[2020-06-03] MEDS: HEPARIN SOD,PORK IN 0.45% NACL 25,000 UNIT in 0.45% NACL 1 250ML.BAG IV SCH (13:30)
[2020-06-03] MEDS: CHOLECALCIFEROL 1,000 UNIT TAB PO SCH (13:30)
[2020-06-03] MEDS: METOPROLOL TARTRATE 50 MG TAB PO SCH ×2 (13:31→21:06)
--- NOTE | 2020-06-03 14:41 | P.PN ---
Subjective Progress Note Date: 06/03/20 Principal diagnosis: CoVID 19 pneumonia 63-year-old male patient coming in for Covid 19 related pneumonia and complications. The patient had a positive test approximately 2 weeks ago. He hasn't getting progressively more weak. His been having fevers and shortness of breath. Apparently the patient initially had mild symptoms and his condition progressed. He is having body aches and weakness and fever. He is also slightly short of breath. No nausea. No vomiting. No diarrhea. No abdominal pain.. The patient has on the CT angiogram. The patient also has hazy infil trates on his chest x-ray. White cell count is at 7.6 with a component of lymphopenia with a lymphocyte count of 0.4. The patient had a d-dimer of 0.9 with a normal coagulation profile pain sodium is at 128, BUN is at 20 with a creatinine of 0.8, glucose is 121, LFTs are showing an AST of 60, ALT of 57, LDH of 1046, CRP of 18.9, troponins are negative. At this point in time the patient on 2 L about 2 by nasal cannula with a pulse ox of 93%. His temperature is 98.9. He is receiving IV fluids with normal state rate of 130s is an hour. He was started on oral Decadron. The patient is seen today 06/03/2020 in follow-up on the selective care unit. He is currently sitting up in bed. Awake and alert in no acute distress. No worsening shortness of breath cough or congestion. Maintaining O2 saturations in the 90s on room air. He's afebrile. The patient did develop atrial fibrillation last night and was transferred here to the selective care unit. He was initiated on a Cardizem drip currently at 5 mg per hour. Initiated on a heparin drip. He is continued on vitamin C, vitamin D, dexamethasone, Pepcid, melatonin same. Objective - Vital Signs Vital signs: Vital Signs Temp 98.0 F 06/03/20 04:00 Pulse 110 H 06/03/20 04:00 Resp 18 06/03/20 04:00 BP 115/62 06/03/20 04:00 Pulse Ox 92 L 06/03/20 04:00 Intake & Output 06/02/20 06/03/20 06/03/20 18:59 06:59 18:59 Intake Total 910 600 Balance 910 600 Weight 90.718 kg 89.4 kg Intake: Intake, IV Titration 910 Amount Sodium Chloride 0.9% 1, 910 000 ml @ 130 mls/hr IV . Q7H42M [facility] Rx#:[id number] Oral 600 - Exam The patient appeared well nourished and normally developed. Vital signs as documented. Head exam is unremarkable. No scleral icterus or corneal arcus noted. Neck is without jugular venous distension, thyromegaly, or carotid bruits. Carotid upstrokes are brisk bilaterally. Lungs have faint crackles in the lung bases bilaterally. Cardiac exam reveals the PMI to be normally sized and situated. Rhythm is irregular. First and second heart sounds normal. No murmurs, rubs or gallops. Abdominal exam reveals normal bowel sounds, no masses, no organomegaly and no aortic enlargement. Extremities are nonedematous and both femoral and pedal pulses are normal.Examination of the skin revealed no evidence of significant rashes, suspicious appearing nevi or other concerning lesions.Neurologically, the patient is awake and alert and the patient does not have any focal neurological deficit. Cranial nerves are essentially intact. - Labs CBC & Chem 7: 06/03/20 07:05 06/03/20 07:05 Labs: Abnormal Lab Results - Last 24 Hours (Table) 06/02/20 06/02/20 06/03/20 Range/Units 12:24 12:24 07:05 RDW 11.4 L (11.5-15.5) % Lymphocytes # 0.5 L (1.0-4.8) k/uL Sodium (135-145) mmol/L BUN/Creatinine Ratio (12.00-20.00) Ratio Glucose (70-110) mg/dL Calcium (8.7-10.3) mg/dL Ferritin 1434.4 H (22.0-322.0) ng/mL AST (14-35) U/L ALT (10-49) U/L C-Reactive Protein (0.0-0.8) mg/dL Total Protein (6.2-8.2) g/dL Albumin (3.80-4.90) g/dL Procalcitonin 0.13 H (0.02-0.09) ng/mL 06/03/20 Range/Units 07:05 RDW (11.5-15.5) % Lymphocytes # (1.0-4.8) k/uL Sodium 133 L (135-145) mmol/L BUN/Creatinine Ratio 27.50 H (12.00-20.00) Ratio Glucose 149 H (70-110) mg/dL Calcium 8.0 L (8.7-10.3) mg/dL Ferritin (22.0-322.0) ng/mL AST 62 H (14-35) U/L ALT 89 H (10-49) U/L C-Reactive Protein 6.9 H (0.0-0.8) mg/dL Total Protein 4.8 L (6.2-8.2) g/dL Albumin 3.20 L (3.80-4.90) g/dL Procalcitonin (0.02-0.09) ng/mL Assessment and Plan Assessment: 1 acute Covid 19 related pneumonia. The patient has some limited groundless by the pulmonary infiltrates on the CAT scan of the chest and the patient was somewhat hypoxemic currently on 2 L of oxygen by nasal cannula with a pulse ox of 93%. 2 new-onset atrial fibrillation requiring Cardizem drip at 5 mg per hour. Heparin drip initiated 3 dyspnea secondary to above 4 acute hypoxic respiratory failure secondary to above 5 lymphopenia secondary to above 6 hyponatremia with a sodium level of 128 7 abnormal LFTs secondary to above 8 coronary artery disease 9 hypertension 10 hyperlipidemia 11 chronic migraines 13 previous history of PCI and stent placement for coronary artery disease including stenting of RCA and circumflex back in 2010. Plan The patient was seen and evaluated by Dr. Talavera He remains stable from the pulmonary standpoint Remains on room air New-onset atrial fibrillation On Cardizem drip and heparin drip Echocardiogram pending Continue Covid 19 medications We'll continue to follow I, the cosigning physician, performed a history & physical examination of the patient. Lungs sounds basilar crackles. Maintaining good O2 saturations in the 90s on room air. I discussed the assessment and plan of care with my nurse practitioner, Lilly Garner. I attest to the above note as dictated by her.
[2020-06-03] MEDS ORDERED: amLODIPine 5 MG TAB PO SCH (21:00)
[2020-06-03] MEDS: ATORVASTATIN 80 MG TAB PO SCH (21:06)
[2020-06-03] MEDS: MELATONIN 5 MG TABLET PO SCH (21:06)
[2020-06-03] MEDS: lisinopriL 10 MG TAB PO SCH (21:06)
[2020-06-04] MEDS: SODIUM CHLORIDE 0.9% 1,000 ML IV SCH (03:35)
[2020-06-04] MEDS: CHOLECALCIFEROL 1,000 UNIT TAB PO SCH (08:40)
[2020-06-04] MEDS: ASCORBIC ACID 500 MG TAB PO SCH (08:40)
[2020-06-04] MEDS: lisinopriL 10 MG TAB PO SCH ×2 (08:41→19:57)
[2020-06-04] MEDS: FAMOTIDINE 20 MG TAB PO SCH ×2 (08:41→19:57)
[2020-06-04] MEDS: ZINC SULFATE 220 MG CAP PO SCH (08:41)
[2020-06-04] MEDS: CLOPIDOGREL 75 MG TAB PO SCH (08:41)
[2020-06-04] MEDS: METOPROLOL TARTRATE 50 MG TAB PO SCH ×2 (08:41→19:58)
[2020-06-04] MEDS: dexAMETHasone 2 MG TAB PO SCH (08:41)
[2020-06-04] MEDS ORDERED: METOPROLOL TARTRATE 50 MG TAB PO STA (10:06)
[2020-06-04 10:10] LABS: Basophils # (A) 0.1 k/uL (0-0.2); Basophils % (A) 0 %; Eosinophils % (A) 0 %; HCT 43.3 % (39.0-53.0); HGB 14.9 gm/dL (13.0-17.5); Lymphocytes # (A) 0.9 k/uL (1.0-4.8); Lymphocytes % (A) 6 %; MCH 32.9 pg (25.0-35.0); MCHC 34.4 g/dL (31.0-37.0); MCV 95.5 fL (80.0-100.0); Mean Platelet Volume 9.6; Monocytes # (A) 0.6 k/uL (0-1.0); Monocytes % (A) 4 %; Neutrophils # (A) 12.9 k/uL (1.3-7.7); Neutrophils % (A) 88 %; Platelet Count 289 k/uL (150-450); RBC 4.53 m/uL (4.30-5.90); RDW 11.6 % (11.5-15.5); WBC 14.6 k/uL (3.8-10.6)
[2020-06-04 10:42] LABS: ALT 112 U/L (4-49); AST 71 U/L (17-59); African American GFR (CKD) >90 (>60 ml/min/1.73 sqM); Albumin 2.9 g/dL (3.5-5.0); Alkaline Phosphatase 67 U/L (38-126); Anion Gap 10 mmol/L; Blood Urea Nitrogen 22 mg/dL (9-20); C Reactive Protein 31.8 mg/L (<10.0); Calcium 8.3 mg/dL (8.4-10.2); Carbon Dioxide 16 mmol/L (22-30); Chloride 103 mmol/L (98-107); Glucose 184 mg/dL (74-99); LDH 764 U/L (313-618); Non-African American GFR(CKD) 90 (>60 ml/min/1.73 sqM); Potassium 4.2 mmol/L (3.5-5.1); Sodium 129 mmol/L (137-145); Total Bilirubin 0.7 mg/dL (0.2-1.3); Total Protein 5.2 g/dL (6.3-8.2)
[2020-06-04] MEDS: HEPARIN SOD,PORK IN 0.45% NACL 25,000 UNIT in 0.45% NACL 1 250ML.BAG IV SCH (11:19)
--- NOTE | 2020-06-04 13:04 | P.PN ---
<Ashley Tavares - Last Filed: 06/04/20 12:56> Subjective Progress Note Date: 06/04/20 HISTORY OF PRESENT ILLNESS: Patient examined this morning at the bedside by Dr. Guadalupe. Patient denies chest pain or pressure. He remains in atrial fibrillation. Heart rate 100-140. IV cardizem has been discontinued. He is on metoprolol 50mg BID. PHYSICAL EXAM: VITAL SIGNS: Reviewed. GENERAL: Well-developed in no acute distress. NECK: Supple. No JVD or thyromegaly LUNGS: Respirations even and unlabored. Lungs diminished. HEART: Irregular rate and rhythm. S1 and S2 heard. EXTREMITIES: Normal range of motion. No clubbing or cyanosis. Peripheral pulses intact. No lower extremity edema ASSESSMENT: New-onset paroxysmal atrial fibrillation with rapid ventricular rate Covid 19 Coronary artery disease, S/P PCI to the distal RCA in 2010 in mid PLV branch in 2019 Hypertension Dyslipidemia PLAN: Discontinue Norvasc Continue additional cardiac medications Increase metoprolol to 100mg BID Continue telemetry monitoring Continue IV heparin. Check prescription coverage for Eliquis. If covered, will initiate Eliquis and discontinue IV heparin drip Nurse practitioner note has been reviewed by physician. Signing provider agrees with the documented findings, assessment, and plan of care. Objective - Vital Signs Vital signs: Vital Signs Temp 97.6 F 06/04/20 12:00 Pulse 51 L 06/04/20 12:00 Resp 18 06/04/20 12:00 BP 130/67 06/04/20 12:00 Pulse Ox 96 06/04/20 12:00 Intake & Output 06/03/20 06/04/20 06/04/20 18:59 06:59 18:59 Intake Total 960 480 398.058 Balance 960 480 398.058 Weight 93.3 kg Intake: Intake, IV Titration 218.058 Amount Heparin Sod,Pork in 0.45% 218.058 NaCl 25,000 unit In 0.45 % NaCl 1 250ml.bag @ 11. 18 UNITS/KG/HR 9.995 mls/ hr IV .Q24H [facility] Rx#: [id number] Oral 960 480 180 Other: # Voids 2 1 - Labs CBC & Chem 7: 06/04/20 09:11 06/04/20 09:11 Labs: Abnormal Lab Results - Last 24 Hours (Table) 11/22/20 11/23/20 11/23/20 Range/Units 19:17 09:11 09:11 WBC 14.6 H (3.8-10.6) k/uL Neutrophils # 12.9 H (1.3-7.7) k/uL Lymphocytes # 0.9 L (1.0-4.8) k/uL APTT 49.7 H (22.0-30.0) sec Sodium 129 L (137-145) mmol/L Carbon Dioxide 16 L (22-30) mmol/L BUN 22 H (9-20) mg/dL Glucose 184 H (74-99) mg/dL Calcium 8.3 L (8.4-10.2) mg/dL AST 71 H (17-59) U/L ALT 112 H (4-49) U/L Lactate Dehydrogenase 764 H (313-618) U/L C-Reactive Protein 31.8 H (<10.0) mg/L Total Protein 5.2 L (6.3-8.2) g/dL Albumin 2.9 L (3.5-5.0) g/dL 06/04/20 Range/Units 09:11 WBC (3.8-10.6) k/uL Neutrophils # (1.3-7.7) k/uL Lymphocytes # (1.0-4.8) k/uL APTT 40.1 H (22.0-30.0) sec Sodium (137-145) mmol/L Carbon Dioxide (22-30) mmol/L BUN (9-20) mg/dL Glucose (74-99) mg/dL Calcium (8.4-10.2) mg/dL AST (17-59) U/L ALT (4-49) U/L Lactate Dehydrogenase (313-618) U/L C-Reactive Protein (<10.0) mg/L Total Protein (6.3-8.2) g/dL Albumin (3.5-5.0) g/dL Microbiology - Last 24 Hours (Table) 06/02/20 12:24 Blood Culture - Preliminary Blood No Growth after 24 hours <Josh Guadalupe - Last Filed: 06/04/20 16:08> Objective - Vital Signs Vital signs: Vital Signs Temp 97.6 F 06/04/20 12:00 Pulse 51 L 06/04/20 12:00 Resp 18 06/04/20 12:00 BP 130/67 06/04/20 12:00 Pulse Ox 96 06/04/20 12:00 Intake & Output 06/03/20 06/04/20 06/04/20 18:59 06:59 18:59 Intake Total 960 480 638.058 Balance 960 480 638.058 Weight 93.3 kg Intake: Intake, IV Titration 218.058 Amount Heparin Sod,Pork in 0.45% 218.058 NaCl 25,000 unit In 0.45 % NaCl 1 250ml.bag @ 11. 18 UNITS/KG/HR 9.995 mls/ hr IV .Q24H [facility] Rx#: [id number] Oral 960 480 420 Other: # Voids 2 1 3 - Labs CBC & Chem 7: 06/04/20 09:11 06/04/20 09:11 Labs: Abnormal Lab Results - Last 24 Hours (Table) 06/03/20 06/04/20 06/04/20 Range/Units 19:17 09:11 09:11 WBC 14.6 H (3.8-10.6) k/uL Neutrophils # 12.9 H (1.3-7.7) k/uL Lymphocytes # 0.9 L (1.0-4.8) k/uL APTT 49.7 H (22.0-30.0) sec Sodium 129 L (137-145) mmol/L Carbon Dioxide 16 L (22-30) mmol/L BUN 22 H (9-20) mg/dL Glucose 184 H (74-99) mg/dL Calcium 8.3 L (8.4-10.2) mg/dL AST 71 H (17-59) U/L ALT 112 H (4-49) U/L Lactate Dehydrogenase 764 H (313-618) U/L C-Reactive Protein 31.8 H (<10.0) mg/L Total Protein 5.2 L (6.3-8.2) g/dL Albumin 2.9 L (3.5-5.0) g/dL 06/04/20 Range/Units 09:11 WBC (3.8-10.6) k/uL Neutrophils # (1.3-7.7) k/uL Lymphocytes # (1.0-4.8) k/uL APTT 40.1 H (22.0-30.0) sec Sodium (137-145) mmol/L Carbon Dioxide (22-30) mmol/L BUN (9-20) mg/dL Glucose (74-99) mg/dL Calcium (8.4-10.2) mg/dL AST (17-59) U/L ALT (4-49) U/L Lactate Dehydrogenase (313-618) U/L C-Reactive Protein (<10.0) mg/L Total Protein (6.3-8.2) g/dL Albumin (3.5-5.0) g/dL Microbiology - Last 24 Hours (Table) 06/02/20 12:24 Blood Culture - Preliminary Blood No Growth after 48 hours
--- NOTE | 2020-06-04 13:32 | ECHOF ---
Referral Reason:new onset echo MEASUREMENTS -------- HEIGHT: 185.4 cm WEIGHT: 89.4 kg BP: 116/67 IVSd: 1.2 cm (0.6 - 1.1) LVIDd: 4.5 cm (3.9 - 5.3) LVPWd: 1.2 cm (0.6 - 1.1) EDV(Teich): 91 ml IVSs: 2.1 cm LVIDs: 2.6 cm LVPWs: 1.6 cm %IVS Thck: 71 % ESV(Teich): 25 ml EF(Teich): 72 % %FS: 41 % SV(Teich): 65 ml LA Diam: 3.5 cm (2.7 - 3.8) RVIDd: 2.9 cm (< 3.3) IVC: 23.98 mm LALs A4C: 5.9 cm LAAs A4C: 17.4 cm LAESV A-L A4C: 43 ml LAESV MOD A4C: 41 ml LALs A2C: 6.0 cm LAAs A2C: 18.1 cm LAESV A-L A2C: 46 ml LAESV MOD A2C: 44 ml LAESV(A-L): 45 ml LAESV Index (A-L): 21.21 ml/m Ao Diam: 3.9 cm (2.0 - 3.7) AV Cusp: 2.3 cm (1.5 - 2.6) EPSS: 1.6 cm MV DecT: 244 ms MV PHT: 50 ms MVA By PHT: 4.4 cm AV Vmax: 1.07 m/s AV maxP.58 mmHg TR Vmax: 2.28 m/s TR maxP.88 mmHg RAP: 15.00 mmHg RVSP: 35.88 mmHg MV EF SLOPE: 136.13 mm/s (70 - 150) MV EXCURSION: 23.60 mm (> 18.000) FINDINGS -------- Atrial fibrillation. This was a technically adequate study. The left ventricular size is normal. There is borderline concentric left ventricular hypertrophy. Overall left ventricular systolic function is mild-moderately impaired with, an EF between 40 - 45 % . The right ventricle is normal in size. Normal LA size by volume 22+/-6 ml/m2. The right atrium is normal in size. Interatrial and interventricular septum intact. The aortic valve is trileaflet and appears structurally normal. The mitral valve is normal. Mild tricuspid regurgitation present. There is mild pulmonary hypertension. The right ventricular systolic pressure, as measured by Doppler, is 35.88mmHg. Trace/mild (physiologic) pulmonic regurgitation. The aortic root is dilated measuring 3.9cm. The inferior vena cava is dilated with poor inspiratory collapse which is consistent with estimated r ight atrial pressure of 15 mmHg. There is no pericardial effusion. CONCLUSIONS -------- 1. The left ventricular size is normal. 2. There is borderline concentric left ventricular hypertrophy. 3. Overall left ventricular systolic function is mild-moderately impaired with, an EF between 40 - 45 %. 4. Mild tricuspid regurgitation present. 5. There is mild pulmonary hypertension. 6. The right ventricular systolic pressure, as measured by Doppler, is 35.88mmHg. 7. Trace/mild (physiologic) pulmonic regurgitation. 8. The aortic root is dilated measuring 3.9cm. 9. The inferior vena cava is dilated with poor inspiratory collapse which is consistent with estimate d right atrial pressure of 15 mmHg. 10. There is no pericardial effusion. TRANSPLANT COORDINATOR: Noelle Jones RDCS
--- NOTE | 2020-06-04 13:35 | P.PN ---
Subjective Progress Note Date: 06/04/20 HISTORY OF PRESENT ILLNESS This is a 64-year-old male patient of Dr. Cummings with past medical history of coronary artery disease with previous stenting most recently in May, hypertension, hyperlipidemia. Patient had Coumadin 19 positive test done 2 weeks ago but has been continuing to have fevers, shortness of breath, generalized weakness and malaise. Symptoms continued to worsen with increasing shortness of breath. He denies any nausea vomiting or diarrhea but did have decreased appetite which is improved this morning. Patient came into [facility] emergency center for evaluation. Chest x-ray revealed moderate perihilar opacities, consistent with infiltrate. CTA of the chest was negative for PE. Bilateral diffuse groundglass opacities consistent with chronic opiate pneumonia was present. Patient was afebrile, heart rate 75, b lood pressure 102/54, pulse ox 94% on room air. WBC 7.6, hemoglobin 15.3. Lymphocytes low at 0.4. D-dimer 0.9. Sodium 128, potassium 4.1, chloride 96, CO2 21, creatinine 0.88. Blood sugar 121. Ferritin 1434, magnesium 2.2. Lactic acid 1.8. Total bilirubin 1.3, AST 60, ALT 57, alkaline phosphatase 15 9. LDH 1046. Troponin negative. C-reactive protein initially 88.9 her repeat of 6.9. Pro-calcitonin 0.13. Patient was admitted to the MedSurg floor and seen by pulmonary medicine and continued on Lovenox dexamethasone and vitamin supplements. Patient subsequently went into A. fib with RVR and started on heparin drip and Cardizem drip, transferred to the cardiac stepdown unit. Cardi ology consult added. Patient is currently pulse oxing 92% on room air. 06/04: Patient is seen today on the cardiac stepdown unit. Patient's pulse ox is 88% on room air, 94% on 2 L nasal cannula. Patient remains in atrial fibrillation and heparin drip remains in place. He has been started on Lopressor which was increased to 100 mg twice daily as heart rate was still in the low 100s. Cardiac monitors atrial fibrillation. Patient requesting to be no CODE STATUS. Repeat blood work reveals WBC 14.6. Sodium 129, potassium 4.2, chloride 103, CO2 16, BUN 22 and creatinine 0.88. Blood sugar 184. AST 71, ALT 112, alkaline phosphatase 67, LDH 764. C-reactive protein 31.8. Albumin 2.9. Echocardiogram reveals EF of 40-45% with borderline concentric left ventricular hypertrophy, mild tricuspid regurgitation, mild pulmonary hypertension. REVIEW OF SYSTEMS Constitutional: Denies fever, denies chills, Reports sweats. No weight change. Reports weakness, Reports fatigue Reports lethargy. Reportsdaytime sleepiness. EENT: No headache. No blurred vision or double vision, no loss of vision. No loss of Hearing, no ringing in the ears, Reports dizziness. No nasal drainage or congestion. No epistaxis. Reports sore throat. Lungs: Reports shortness of breath, Reportscough, no sputum production. No wheezing. Cardiovascular: No chest pain, no lower extremity edema. No palpitations. No paroxysmal nocturnal dyspnea. No orthopnea. Reports lightheadedness or dizziness. No syncopal episodes. Abdominal: No abdominal pain. No nausea, vomiting. No diarrhea. No constipation. No bloody or tarry stools. No loss of appetite. Genitourinary: No dysuria, increased frequency, urgency. No urinary retention. Musculoskeletal: No myalgias. Reports muscle weakness, no gait dysfunction, no frequent falls. No back pain. No neck pain. Integumentary: No wounds, no lesions. No rash or pruritus. Neurologic: No aphasia. No facial droop. No change in mentation. No head injury. No headache. No paralysis. No paresthesia. Psychiatric: No depression. No anxiety. Endocrine: No abnormal blood sugars. PHYSICAL EXAMINATION Gen: This is a 64-year-old male. His resting in bed and appears comfortable. No acute respiratory distress is noted at rest. HEENT: Head is atraumatic, normocephalic. Pupils equal, round. Sclerae is anicteric. NECK: Supple. No JVD. No lymphadenopathy. No thyromegaly. LUNGS: Clear to auscultation. Diminished in bilateral bases. No intercostal retractions. HEART: Irregular rate and rhythm. No murmur. ABDOMEN: Soft. Bowel sounds are present. No masses. No tenderness. EXTREMITIES: No pedal edema. No calf tenderness. Dorsalis pedis +2 bilaterally. NEUROLOGICAL: Patient is awake, alert and oriented x3. Cranial nerves 2 through 12 are grossly intact. ASSESSMENT AND PLAN 1. Acute COVID-19 pneumonia. No plan for Remdesivir treatment. Continue vitamin C, vitamin D, dexamethasone 6 mg daily, zinc, heparin drip. 2. New onset atrial fibrillation, paroxysmal atrial fibrillation. Continue heparin drip, cardiology consult appreciated. Lopressor increased to 100 mg twice daily. 3. Elevated liver function tests secondary to Covid 19 infection. 4. Hyponatremia secondary to dehydration from Covid 19. Patient is status post IV fluid bolus of 500 and continue IV fluids. 5. Hypertension. Continue lisinopril 10 mg twice daily and Lopressor. 6. History of coronary artery disease. Continue aspirin 81 mg daily, Plavix 75 mg daily, Lipitor 80 mg daily, beta tony and SHIRLEY inhibitor. Cardiology consult. 7. Hyperlipidemia. Continue Lipitor 80 mg at bedtime. 8. GI prophylaxis. Pepcid 20 mg twice daily. DISCHARGE PLAN Return home. Impression and plan of care have been directed as dictated by the signing physician. Sravanthi Pimentel nurse practitioner acting as scribe for signing physician. Objective - Vital Signs Vital signs: Vital Signs Temp 97.7 F 06/04/20 04:00 Pulse 114 H 06/04/20 04:00 Resp 18 06/04/20 04:05 BP 116/67 06/04/20 04:00 Pulse Ox 94 L 06/04/20 04:05 Intake & Output 06/03/20 06/04/20 06/04/20 18:59 06:59 18:59 Intake Total 960 480 Balance 960 480 Weight 93.3 kg Intake: Oral 960 480 Other: # Voids 2 1 - Labs CBC & Chem 7: 06/04/20 09:11 06/04/20 09:11 Labs: Abnormal Lab Results - Last 24 Hours (Table) 06/03/20 06/03/20 Range/Units 07:05 19:17 APTT 49.7 H (22.0-30.0) sec Sodium 133 L (135-145) mmol/L BUN/Creatinine Ratio 27.50 H (12.00-20.00) Ratio Glucose 149 H (70-110) mg/dL Calcium 8.0 L (8.7-10.3) mg/dL AST 62 H (14-35) U/L ALT 89 H (10-49) U/L C-Reactive Protein 6.9 H (0.0-0.8) mg/dL Total Protein 4.8 L (6.2-8.2) g/dL Albumin 3.20 L (3.80-4.90) g/dL Microbiology - Last 24 Hours (Table) 06/02/20 12:24 Blood Culture - Preliminary Blood No Growth after 24 hours
[2020-06-04] MEDS: APIXABAN 5 MG TAB PO SCH ×2 (15:30→19:59)
--- NOTE | 2020-06-04 17:29 | P.PN ---
Subjective Progress Note Date: 06/04/20 Principal diagnosis: Acute covid 19 pneumonia 63-year-old male patient coming in for Covid 19 related pneumonia and complications. The patient had a positive test approximately 2 weeks ago. He hasn't getting progressively more weak. His been having fevers and shortness of breath. Apparently the patient initially had mild symptoms and his condition progressed. He is having body aches and weakness and fever. He is also slightly short of breath. No nausea. No vomiting. No diarrhea. No abdominal pain.. The patient has on the CT angiogram. The patient also has hazy infiltrates on his chest x-ray. White cell count is at 7.6 with a component of lymphopenia with a lymphocyte count of 0.4. The patient had a d-dimer of 0.9 with a normal coagulation profile pain sodium is at 128, BUN is at 20 with a creatinine of 0.8, glucose is 121, LFTs are showing an AST of 60, ALT of 57, LDH of 1046, CRP of 18.9, troponins are negative. At this point in time the patient on 2 L about 2 by nasal cannula with a pulse ox of 93%. His temperature is 98.9. He is receiving IV fluids with normal state rate of 130s is an hour. He was started on oral Decadron. The patient is seen today 06/03/2020 in follow-up on the selective care unit. He is currently sitting up in bed. Awake and alert in no acute distress. No worsening shortness of breath cough or congestion. Maintaining O2 saturations in the 90s on room air. He's afebrile. The patient did develop atrial fibrill ation last night and was transferred here to the selective care unit. He was initiated on a Cardizem drip currently at 5 mg per hour. Initiated on a heparin drip. He is continued on vitamin C, vitamin D, dexamethasone, Pepcid, melatonin same. Reevaluated today on 06/04/20, patient seems to be doing better, breathing easier, he is maintaining adequate O2 saturation on room air. Patient has 96% saturation on 2 L. He has no fever, temp 97 5, patient is denying any significant shortness of breath. WBC count is 14.6 hemoglobin is 14.9. PTT is 40.1, patient is on heparin for atrial fibrillation. Sodium is 129 potassium 4.2 renal profile is normal. Pro- calcitonin is 0.13. Not significantly impressive. CT of the chest showed diffuse bilateral groundglass opacities, consistent with covid 19 pneumonia. Objective - Vital Signs Vital signs: Vital Signs Temp 97.5 F L 06/04/20 16:00 Pulse 116 H 06/04/20 16:00 Resp 18 06/04/20 16:00 BP 119/64 06/04/20 16:00 Pulse Ox 95 06/04/20 16:00 Intake & Output 06/03/20 06/04/20 06/04/20 18:59 06:59 18:59 Intake Total 960 480 638.058 Balance 960 480 638.058 Weight 93.3 kg Intake: Intake, IV Titration 218.058 Amount Heparin Sod,Pork in 0.45% 218.058 NaCl 25,000 unit In 0.45 % NaCl 1 250ml.bag @ 11. 18 UNITS/KG/HR 9.995 mls/ hr IV .Q24H [facility] Rx#: [id number] Oral [id number] 480 420 Other: # Voids 2 1 3 - Exam Physical Exam: Revealed a 64-year-old white male in no distress. On room air. HEENT:[Neck is supple.] [No neck masses.] [No thyromegaly.] [No JVD.] Chest: [Symmetrical chest expansion, minimal fine crackles at the bases, no rho nchi and no wheezes. Cardiac Exam: [Normal S1 and S2, no S3 gallop, no murmur.] Abdomen: [Soft, nontender, no megaly, no rebound, no guarding, normal bowel sounds.] Extremities: [No clubbing, no edema, no cyanosis.] Neurological Exam: [No focal neurologic deficit.] Alert oriented 3 no gross deficits. Psychiatric: Normal mood, affect and normal mental status examination Skin: No rashes - Labs CBC & Chem 7: 06/04/20 09:11 06/04/20 09:11 Labs: Abnormal Lab Results - Last 24 Hours (Table) 06/03/20 06/04/20 06/04/20 Range/Units 19:17 09:11 09:11 WBC 14.6 H (3.8-10.6) k/uL Neutrophils # 12.9 H (1.3-7.7) k/uL Lymphocytes # 0.9 L (1.0-4.8) k/uL APTT 49.7 H (22.0-30.0) sec Sodium 129 L (137-145) mmol/L Carbon Dioxide 16 L (22-30) mmol/L BUN 22 H (9-20) mg/dL Glucose 184 H (74-99) mg/dL Calcium 8.3 L (8.4-10.2) mg/dL AST 71 H (17-59) U/L ALT 112 H (4-49) U/L Lactate Dehydrogenase 764 H (313-618) U/L C-Reactive Protein 31.8 H (<10.0) mg/L Total Protein 5.2 L (6.3-8.2) g/dL Albumin 2.9 L (3.5-5.0) g/dL 06/04/20 Range/Units 09:11 WBC (3.8-10.6) k/uL Neutrophils # (1.3-7.7) k/uL Lymphocytes # (1.0-4.8) k/uL APTT 40.1 H (22.0-30.0) sec Sodium (137-145) mmol/L Carbon Dioxide (22-30) mmol/L BUN (9-20) mg/dL Glucose (74-99) mg/dL Calcium (8.4-10.2) mg/dL AST (17-59) U/L ALT (4-49) U/L Lactate Dehydrogenase (313-618) U/L C-Reactive Protein (<10.0) mg/L Total Protein (6.3-8.2) g/dL Albumin (3.5-5.0) g/dL Microbiology - Last 24 Hours (Table) 06/02/20 12:24 Blood Culture - Preliminary Blood No Growth after 48 hours Assessment and Plan Assessment: Impression: Acute covid 19 pneumonitis. New-onset atrial fibrillation. Hypovolemic hyponatremia. Benign essential hypertension. History of underlying coronary artery disease. History of dyslipidemia. Recommendation: Continue vitamin C, vitamin D, Decadron, and zinc Continue heparin. Increase Lopressor to control heart rate presently at 100 mg twice a day. Continue IV fluids, 0.9 normal saline. Continue lisinopril for hypertension. Continue Pepcid./GI and DVT prophylaxis. We'll continue to follow. Time with Patient: Less than 30
[2020-06-04] MEDS: MELATONIN 5 MG TABLET PO SCH (19:57)
[2020-06-04] MEDS: ATORVASTATIN 80 MG TAB PO SCH (19:57)
[2020-06-05] MEDS: ASCORBIC ACID 500 MG TAB PO SCH (09:00)
[2020-06-05] MEDS: CHOLECALCIFEROL 1,000 UNIT TAB PO SCH (09:00)
[2020-06-05] MEDS: CLOPIDOGREL 75 MG TAB PO SCH (09:00)
[2020-06-05] MEDS: dexAMETHasone 2 MG TAB PO SCH (09:00)
[2020-06-05] MEDS: APIXABAN 5 MG TAB PO SCH ×2 (09:00→20:39)
[2020-06-05] MEDS: FAMOTIDINE 20 MG TAB PO SCH ×2 (09:01→20:39)
[2020-06-05] MEDS: METOPROLOL TARTRATE 50 MG TAB PO SCH ×2 (09:01→20:39)
[2020-06-05] MEDS: ZINC SULFATE 220 MG CAP PO SCH (09:01)
[2020-06-05] MEDS: lisinopriL 10 MG TAB PO SCH ×2 (09:01→20:39)
--- NOTE | 2020-06-05 10:19 | XR ---
EXAMINATION TYPE: XR chest 1V portable DATE OF EXAM: 06/05/2020 CLINICAL HISTORY: COVID pneumonia. TECHNIQUE: Portable frontal view of the chest. COMPARISON: 08/02/2019 CTA chest and chest radiograph FINDINGS: The cardiomediastinal silhouette is within normal limits for size. The multifocal patchy a irspace opacities of the bilateral lungs have moderately increased versus 06/02/2020. No pleural effu hollie, or pneumothorax seen. IMPRESSION: Moderately increased patchy airspace opacities of the bilateral lungs versus 06/02/2020.
[2020-06-05] MEDS ORDERED: METOPROLOL TARTRATE 50 MG TAB PO STA (10:31)
[2020-06-05 11:15] LABS: ALT 130 U/L (4-49); AST 57 U/L (17-59); African American GFR (CKD) >90 (>60 ml/min/1.73 sqM); Albumin 2.7 g/dL (3.5-5.0); Alkaline Phosphatase 57 U/L (38-126); Anion Gap 4 mmol/L; Blood Urea Nitrogen 23 mg/dL (9-20); C Reactive Protein 20.4 mg/L (<10.0); Calcium 8.4 mg/dL (8.4-10.2); Carbon Dioxide 22 mmol/L (22-30); Chloride 103 mmol/L (98-107); Glucose 117 mg/dL (74-99); LDH 592 U/L (313-618); Non-African American GFR(CKD) 81 (>60 ml/min/1.73 sqM); Potassium 4.8 mmol/L (3.5-5.1); Sodium 129 mmol/L (137-145); Total Bilirubin 0.6 mg/dL (0.2-1.3)
[2020-06-05 11:29] LABS: Basophils # (A) 0.1 k/uL (0-0.2); Basophils % (A) 1 %; Eosinophils % (A) 0 %; HCT 41.6 % (39.0-53.0); HGB 14.5 gm/dL (13.0-17.5); Lymphocytes # (A) 0.7 k/uL (1.0-4.8); Lymphocytes % (A) 6 %; MCHC 34.9 g/dL (31.0-37.0); MCV 94.6 fL (80.0-100.0); Mean Platelet Volume 8.9; Monocytes # (A) 0.7 k/uL (0-1.0); Monocytes % (A) 6 %; Neutrophils # (A) 10.2 k/uL (1.3-7.7); Neutrophils % (A) 86 %; Platelet Count 246 k/uL (150-450); RDW 11.5 % (11.5-15.5); WBC 11.8 k/uL (3.8-10.6)
--- NOTE | 2020-06-05 12:02 | P.PN ---
Subjective Progress Note Date: 06/05/20 HISTORY OF PRESENT ILLNESS This is a 64-year-old male patient of Dr. Cummings with past medical history of coronary artery disease with previous stenting most recently in May, hypertension, hyperlipidemia. Patient had Coumadin 19 positive test done 2 weeks ago but has been continuing to have fevers, shortness of breath, generalized weakness and malaise. Symptoms continued to worsen with increasing shortness of breath. He denies any nausea vomiting or diarrhea but did have decreased appetite which is improved this morning. Patient came into [facility] emergency center for evaluation. Chest x-ray revealed moderate perihilar opacities, consistent with infiltrate. CTA of the chest was negative for PE. Bilateral diffuse groundglass opacities consistent with chronic opiate pneumonia was present. Patient was afebrile, heart rate 75, b lood pressure 102/54, pulse ox 94% on room air. WBC 7.6, hemoglobin 15.3. Lymphocytes low at 0.4. D-dimer 0.9. Sodium 128, potassium 4.1, chloride 96, CO2 21, creatinine 0.88. Blood sugar 121. Ferritin 1434, magnesium 2.2. Lactic acid 1.8. Total bilirubin 1.3, AST 60, ALT 57, alkaline phosphatase 15 9. LDH 1046. Troponin negative. C-reactive protein initially 88.9 her repeat of 6.9. Pro-calcitonin 0.13. Patient was admitted to the MedSurg floor and seen by pulmonary medicine and continued on Lovenox dexamethasone and vitamin supplements. Patient subsequently went into A. fib with RVR and started on heparin drip and Cardizem drip, transferred to the cardiac stepdown unit. Cardi ology consult added. Patient is currently pulse oxing 92% on room air. 06/04: Patient is seen today on the cardiac stepdown unit. Patient's pulse ox is 88% on room air, 94% on 2 L nasal cannula. Patient remains in atrial fibrillation and heparin drip remains in place. He has been started on Lopressor which was increased to 100 mg twice daily as heart rate was still in the low 100s. Cardiac monitors atrial fibrillation. Patient requesting to be no CODE STATUS. Repeat blood work reveals WBC 14.6. Sodium 129, potassium 4.2, chloride 103, CO2 16, BUN 22 and creatinine 0.88. Blood sugar 184. AST 71, ALT 112, alkaline phosphatase 67, LDH 764. C-reactive protein 31.8. Albumin 2.9. Echocardiogram reveals EF of 40-45% with borderline concentric left ventricular hypertrophy, mild tricuspid regurgitation, mild pulmonary hypertension. 06/05: Patient's heart rate is been running in the 120s to 130s, cardiology has increased Lopressor 150 mg twice daily. Heparin drip has been transitioned to eliquis. Patient states that he can feel the palpitations. Otherwise, he denies shortness of breath. Pulse ox is 90-93% on room air. He has been afebrile, blood pressure 108/57. Repeat blood work reveals WBC 11.8, hemoglobin 14.5. Sodium is 129, potassium 4.8, chloride 103, CO2 22, creatinine 0.98. Blood sugar 117. AST 57, ALT 130, alkaline phosphatase 57. LDH is normal at 592. C-reactive protein is decreased at 20.4. Repeat chest x-ray reveals moderately increased patchy airspace opacities in the bilateral lungs. Anticipate possible discharge by tomorrow if heart rate is controlled. REVIEW OF SYSTEMS Constitutional: Denies fever, denies chills, Reports sweats. No weight change. Reports weakness, Reports fatigue Reports lethargy. Reportsdaytime sleepiness. EENT: No headache. No blurred vision or double vision, no loss of vision. No loss of Hearing, no ringing in the ears, Reports dizziness. No nasal drainage or congestion. No epistaxis. Reports sore throat. Lungs: Reports shortness of breath, Reportscough, no sputum production. No wheezing. Cardiovascular: No chest pain, no lower extremity edema. Reports alpitations. No paroxysmal nocturnal dyspnea. No orthopnea. Reports lightheadedness or dizziness. No syncopal episodes. Abdominal: No abdominal pain. No nausea, vomiting. No diarrhea. No constipation. No bloody or tarry stools. No loss of appetite. Genitourinary: No dysuria, increased frequency, urgency. No urinary retention. Musculoskeletal: No myalgias. Reports muscle weakness, no gait dysfunction, no frequent falls. No back pain. No neck pain. Integumentary: No wounds, no lesions. No rash or pruritus. Neurologic: No aphasia. No facial droop. No change in mentation. No head injury. No headache. No paralysis. No paresthesia. Psychiatric: No depression. No anxiety. Endocrine: Reports bnormal blood sugars. PHYSICAL EXAMINATION Gen: This is a 64-year-old male. His resting in bed and appears comfortable. No acute respiratory distress is noted at rest. HEENT: Head is atraumatic, normocephalic. Pupils equal, round. Sclerae is anicteric. NECK: Supple. No JVD. No lymphadenopathy. No thyromegaly. LUNGS: Clear to auscultation. Diminished in bilateral bases. No intercostal retractions. HEART: Irregular rate and rhythm. No murmur. ABDOMEN: Soft. Bowel sounds are present. No masses. No tenderness. EXTREMITIES: No pedal edema. No calf tenderness. Dorsalis pedis +2 bilaterally. NEUROLOGICAL: Patient is awake, alert and oriented x3. Cranial nerves 2 through 12 are grossly intact. ASSESSMENT AND PLAN 1. Acute COVID-19 pneumonia. No plan for Remdesivir treatment. Continue vitamin C, vitamin D, dexamethasone 6 mg daily, zinc, heparin drip. 2. New onset atrial fibrillation, paroxysmal atrial fibrillation. Continue heparin drip transitioned to oral eliquis, cardiology consult appreciated. Lopressor increased to 150 mg twice daily. 3. Elevated liver function tests secondary to Covid 19 infection. 4. Hyponatremia secondary to dehydration from Covid 19. Patient is status post IV fluid bolus of 500 and IV fluids. 5. Hypertension. Continue lisinopril 10 mg twice daily and Lopressor. 6. History of coronary artery disease. Continue aspirin 81 mg daily, Plavix 75 mg daily, Lipitor 80 mg daily, beta tony and SHIRLEY inhibitor. Cardiology consult. 7. Hyperlipidemia. Continue Lipitor 80 mg at bedtime. 8. GI prophylaxis. Pepcid 20 mg twice daily. DISCHARGE PLAN Return home on Thursday. Impression and plan of care have been directed as dictated by the signing physician. Sravanthi Pimentel nurse practitioner acting as scribe for signing physician. Objective - Vital Signs Vital signs: Vital Signs Temp 97.4 F L 06/05/20 04:00 Pulse 112 H 06/05/20 04:00 Resp 16 06/05/20 04:00 BP 121/76 06/05/20 04:00 Pulse Ox 94 L 06/05/20 04:00 Intake & Output 06/04/20 06/05/20 06/05/20 18:59 06:59 18:59 Intake Total 998.058 Balance 998.058 Intake: Intake, IV Titration 218.058 Amount Heparin Sod,Pork in 0.45% 218.058 NaCl 25,000 unit In 0.45 % NaCl 1 250ml.bag @ 11. 18 UNITS/KG/HR 9.995 mls/ hr IV .Q24H [facility] Rx#: [id number] Oral 780 Other: # Voids 3 2 - Labs CBC & Chem 7: 06/05/20 10:16 06/05/20 10:16 Labs: Abnormal Lab Results - Last 24 Hours (Table) 06/04/20 06/04/20 06/04/20 Range/Units 09:11 09:11 09:11 WBC 14.6 H (3.8-10.6) k/uL Neutrophils # 12.9 H (1.3-7.7) k/uL Lymphocytes # 0.9 L (1.0-4.8) k/uL APTT 40.1 H (22.0-30.0) sec Sodium 129 L (137-145) mmol/L Carbon Dioxide 16 L (22-30) mmol/L BUN 22 H (9-20) mg/dL Glucose 184 H (74-99) mg/dL Calcium 8.3 L (8.4-10.2) mg/dL AST 71 H (17-59) U/L ALT 112 H (4-49) U/L Lactate Dehydrogenase 764 H (313-618) U/L C-Reactive Protein 31.8 H (<10.0) mg/L Total Protein 5.2 L (6.3-8.2) g/dL Albumin 2.9 L (3.5-5.0) g/dL Microbiology - Last 24 Hours (Table) 06/02/20 12:24 Blood Culture - Preliminary Blood No Growth after 48 hours
--- NOTE | 2020-06-05 12:07 | P.PN ---
Subjective Progress Note Date: 06/05/20 HISTORY OF PRESENT ILLNESS: Patient examined this morning at the bedside by Dr. Guadalupe. Patient denies chest pain or pressure. Denies shortness of breath. He remains in atrial fibrillation with uncontrolled ventricular rate. He is receiving metoprolol 100 mg twice a day. Heparin drip has been discontinued and patient has been transitioned to Eliquis. PHYSICAL EXAM: VITAL SIGNS: Reviewed. GENERAL: Well-developed in no acute distress. NECK: Supple. No JVD or thyromegaly LUNGS: Respirations even and unlabored. Lungs diminished. HEART: Tachycardic. Irregular rate and rhythm. S1 and S2 heard. EXTREMITIES: Normal range of motion. No clubbing or cyanosis. Peripheral pulses intact. No lower extremity edema ASSESSMENT: New-onset paroxysmal atrial fibrillation with rapid ventricular rate Covid 19 Coronary artery disease, S/P PCI to the distal RCA in 2010 in mid PLV branch in 2019 Hypertension Dyslipidemia PLAN: Continue current cardiac medications Continue Eliquis for anticoagulation Increase metoprolol to 150mg BID Continue telemetry monitoring Nurse practitioner note has been reviewed by physician. Signing provider agrees with the documented findings, assessment, and plan of care. Objective - Vital Signs Vital signs: Vital Signs Temp 97.2 F L 06/05/20 08:00 Pulse 126 H 06/05/20 08:00 Resp 18 06/05/20 08:00 BP 108/57 06/05/20 08:00 Pulse Ox 90 L 06/05/20 08:00 Intake & Output 06/04/20 06/05/20 06/05/20 18:59 06:59 18:59 Intake Total 998.058 240 Balance 998.058 240 Intake: Intake, IV Titration 218.058 Amount Heparin Sod,Pork in 0.45% 218.058 NaCl 25,000 unit In 0.45 % NaCl 1 250ml.bag @ 11. 18 UNITS/KG/HR 9.995 mls/ hr IV .Q24H [facility] Rx#: [id number] Oral 780 240 Other: # Voids 3 2 - Labs CBC & Chem 7: 06/05/20 10:16 06/05/20 10:16 Labs: Abnormal Lab Results - Last 24 Hours (Table) 06/05/20 06/05/20 Range/Units 10:16 10:16 WBC 11.8 H (3.8-10.6) k/uL Neutrophils # 10.2 H (1.3-7.7) k/uL Lymphocytes # 0.7 L (1.0-4.8) k/uL Sodium 129 L (137-145) mmol/L BUN 23 H (9-20) mg/dL Glucose 117 H (74-99) mg/dL ALT 130 H (4-49) U/L C-Reactive Protein 20.4 H (<10.0) mg/L Total Protein 5.0 L (6.3-8.2) g/dL Albumin 2.7 L (3.5-5.0) g/dL Microbiology - Last 24 Hours (Table) 06/02/20 12:24 Blood Culture - Preliminary Blood No Growth after 48 hours
[2020-06-05] MEDS: INSULIN ASPART (NovoLOG) 100 UNIT/ML VIAL SQ SCH ×3 (12:22→20:53)
[2020-06-05] MEDS: DILTIAZEM ORAL 30 MG TAB PO SCH ×3 (13:05→20:39)
[2020-06-05 16:54] LABS: Glucose,Whole Blood 195 mg/dL (75-99)
--- NOTE | 2020-06-05 18:06 | P.PN ---
Subjective Progress Note Date: 06/05/20 Principal diagnosis: Acute covid 19 pneumonia 63-year-old male patient coming in for Covid 19 related pneumonia and complications. The patient had a positive test approximately 2 weeks ago. He hasn't getting progressively more weak. His been having fevers and shortness of breath. Apparently the patient initially had mild symptoms and his condition progressed. He is having body aches and weakness and fever. He is also slightly short of breath. No nausea. No vomiting. No diarrhea. No abdominal pain.. The patient has on the CT angiogram. The patient also has hazy infiltrates on his chest x-ray. White cell count is at 7.6 with a component of lymphopenia with a lymphocyte count of 0.4. The patient had a d-dimer of 0.9 with a normal coagulation profile pain sodium is at 128, BUN is at 20 with a creatinine of 0.8, glucose is 121, LFTs are showing an AST of 60, ALT of 57, LDH of 1046, CRP of 18.9, troponins are negative. At this point in time the patient on 2 L about 2 by nasal cannula with a pulse ox of 93%. His temperature is 98.9. He is receiving IV fluids with normal state rate of 130s is an hour. He was started on oral Decadron. The patient is seen today 06/03/2020 in follow-up on the selective care unit. He is currently sitting up in bed. Awake and alert in no acute distress. No worsening shortness of breath cough or congestion. Maintaining O2 saturations in the 90s on room air. He's afebrile. The patient did develop atrial fibrill ation last night and was transferred here to the selective care unit. He was initiated on a Cardizem drip currently at 5 mg per hour. Initiated on a heparin drip. He is continued on vitamin C, vitamin D, dexamethasone, Pepcid, melatonin same. Reevaluated today on 06/04/20, patient seems to be doing better, breathing easier, he is maintaining adequate O2 saturation on room air. Patient has 96% saturation on 2 L. He has no fever, temp 97 5, patient is denying any significant shortness of breath. WBC count is 14.6 hemoglobin is 14.9. PTT is 40.1, patient is on heparin for atrial fibrillation. Sodium is 129 potassium 4.2 renal profile is normal. Pro- calcitonin is 0.13. Not significantly impressive. CT of the chest showed diffuse bilateral groundglass opacities, consistent with covid 19 pneumonia. Reevaluated today on 06/05/20, patient seems to be doing better, breathing easier, however patient went into atrial fibrillation with RVR, and that being addressed by cardiology, now he is on metoprolol 100 twice a day, and he is on Eliquis. From the Covid 19 perspective, patient was cleared for discharge chest x-ray continues to show patchy airspace opacities bilaterally in both lungs. However the patient has been maintaining adequate O2 saturation on room air, presently on 2 L with O2 saturation of 96%. Clinically the patient feels great and he was about to be discharged home if it were not for his atrial fibrillation with RVR Objective - Vital Signs Vital signs: Vital Signs Temp 97.8 F 06/05/20 15:46 Pulse 138 H 06/05/20 15:48 Resp 18 06/05/20 15:48 BP 116/67 06/05/20 15:46 Pulse Ox 96 06/05/20 15:46 Intake & Output 06/04/20 06/05/20 06/05/20 18:59 06:59 18:59 Intake Total 998.058 477 Balance 998.058 477 Intake: Intake, IV Titration 218.058 Amount Heparin Sod,Pork in 0.45% 218.058 NaCl 25,000 unit In 0.45 % NaCl 1 250ml.bag @ 11. 18 UNITS/KG/HR 9.995 mls/ hr IV .Q24H [facility] Rx#: [id number] Oral 780 477 Other: # Voids 3 2 2 - Exam Physical Exam: Revealed a 64-year-old white male in no distress. On 2 L nasal cannula. HEENT:[Neck is supple.] [No neck masses.] [No thyromegaly.] [No JVD.] Chest: [Symmetrical chest expansion, minimal fine crackles at the bases, no rhonchi and no wheezes. Cardiac Exam: Irregular irregular rhythm. [Normal S1 and S2, no S3 gallop, no murmur.] Abdomen: [Soft, nontender, no megaly, no rebound, no guarding, normal bowel sounds.] Extremities: [No clubbing, no edema, no cyanosis.] Neurological Exam: [No focal neurologic deficit.] Alert oriented 3 no gross deficits. Psychiatric: Normal mood, affect and normal mental status examination Skin: No rashes - Labs CBC & Chem 7: 06/05/20 10:16 06/05/20 10:16 Labs: Abnormal Lab Results - Last 24 Hours (Table) 06/05/20 06/05/20 06/05/20 Range/Units 10:16 10:16 16:52 WBC 11.8 H (3.8-10.6) k/uL Neutrophils # 10.2 H (1.3-7.7) k/uL Lymphocytes # 0.7 L (1.0-4.8) k/uL Sodium 129 L (137-145) mmol/L BUN 23 H (9-20) mg/dL Glucose 117 H (74-99) mg/dL POC Glucose (mg/dL) 195 H (75-99) mg/dL ALT 130 H (4-49) U/L C-Reactive Protein 20.4 H (<10.0) mg/L Total Protein 5.0 L (6.3-8.2) g/dL Albumin 2.7 L (3.5-5.0) g/dL Microbiology - Last 24 Hours (Table) 06/02/20 12:24 Blood Culture - Preliminary Blood No Growth after 72 hours Assessment and Plan Assessment: Impression: Acute covid 19 pneumonitis. New-onset atrial fibrillation. Being addressed by cardiology. Hypovolemic hyponatremia. Benign essential hypertension. History of underlying coronary artery disease. History of dyslipidemia. Recommendation: Cardiology to continue addressing his atrial fibrillation/RVR. Continue vitamin C, vitamin D, Decadron, and zinc Heparin was transitioned to Eliquis.. Increase Lopressor to control heart rate presently at 100 mg twice a day. Continue IV fluids, 0.9 normal saline. Continue lisinopril for hypertension. Continue Pepcid./GI and DVT prophylaxis. Possible discharge planning in the next 24 hours Time with Patient: Less than 30
[2020-06-05] MEDS: ATORVASTATIN 80 MG TAB PO SCH (20:39)
[2020-06-05] MEDS: MELATONIN 5 MG TABLET PO SCH (20:39)
[2020-06-05 20:46] LABS: Glucose,Whole Blood 149 mg/dL (75-99)
[2020-06-05 22:03] VITALS: TEMP 97.4
[2020-06-06 04:12] VITALS: RESP 16
[2020-06-06 06:08] LABS: Glucose,Whole Blood 120 mg/dL (75-99)
[2020-06-06] MEDS: INSULIN ASPART (NovoLOG) 100 UNIT/ML VIAL SQ SCH ×2 (06:09→12:22)
[2020-06-06] MEDS: ZINC SULFATE 220 MG CAP PO SCH (08:59)
[2020-06-06] MEDS: ASCORBIC ACID 500 MG TAB PO SCH (08:59)
[2020-06-06] MEDS: CHOLECALCIFEROL 1,000 UNIT TAB PO SCH (08:59)
[2020-06-06] MEDS: CLOPIDOGREL 75 MG TAB PO SCH (08:59)
[2020-06-06] MEDS: APIXABAN 5 MG TAB PO SCH (08:59)
[2020-06-06] MEDS: dexAMETHasone 2 MG TAB PO SCH (08:59)
[2020-06-06] MEDS: FAMOTIDINE 20 MG TAB PO SCH (09:00)
[2020-06-06] MEDS: DILTIAZEM ORAL 30 MG TAB PO SCH (09:00)
[2020-06-06] MEDS: lisinopriL 10 MG TAB PO SCH (09:00)
[2020-06-06] MEDS: METOPROLOL TARTRATE 50 MG TAB PO SCH (09:00)
[2020-06-06] MEDS ORDERED: DILTIAZEM ORAL 30 MG TAB PO ONE (09:45)
[2020-06-06 11:11] VITALS: BP 114/75; PULSE 95
[2020-06-06 12:15] LABS: Glucose,Whole Blood 126 mg/dL (75-99)
--- NOTE | 2020-06-06 14:26 | P.PN ---
Subjective Progress Note Date: 06/06/20 Principal diagnosis: CoVID 19 pneumonia 63-year-old male patient coming in for Covid 19 related pneumonia and complications. The patient had a positive test approximately 2 weeks ago. He hasn't getting progressively more weak. His been having fevers and shortness of breath. Apparently the patient initially had mild symptoms and his condition progressed. He is having body aches and weakness and fever. He is also slightly short of breath. No nausea. No vomiting. No diarrhea. No abdominal pain.. The patient has on the CT angiogram. The patient also has hazy infil trates on his chest x-ray. White cell count is at 7.6 with a component of lymphopenia with a lymphocyte count of 0.4. The patient had a d-dimer of 0.9 with a normal coagulation profile pain sodium is at 128, BUN is at 20 with a creatinine of 0.8, glucose is 121, LFTs are showing an AST of 60, ALT of 57, LDH of 1046, CRP of 18.9, troponins are negative. At this point in time the patient on 2 L about 2 by nasal cannula with a pulse ox of 93%. His temperature is 98.9. He is receiving IV fluids with normal state rate of 130s is an hour. He was started on oral Decadron. The patient is seen today 06/03/2020 in follow-up on the selective care unit. He is currently sitting up in bed. Awake and alert in no acute distress. No worsening shortness of breath cough or congestion. Maintaining O2 saturations in the 90s on room air. He's afebrile. The patient did develop atrial fibrillation last night and was transferred here to the selective care unit. He was initiated on a Cardizem drip currently at 5 mg per hour. Initiated on a heparin drip. He is continued on vitamin C, vitamin D, dexamethasone, Pepcid, melatonin same. The patient is seen today 06/06/2020 in follow-up in the selective care unit. He is currently sitting up at the bedside. Awake and alert in no acute distress . Maintaining O2 saturations in the 90s on room air. He's been afebrile. Heart rate is currently controlled. He is anticoagulated with Eliquis. He remains on dexamethasone. Melatonin, zinc, Pepcid, vitamin C and vitamin D. Objective - Vital Signs Vital signs: Vital Signs Temp 97.4 F L 06/06/20 08:58 Pulse 95 06/06/20 11:00 Resp 16 06/06/20 11:00 BP 114/75 06/06/20 11:00 Pulse Ox 93 L 06/06/20 11:00 Intake & Output 06/05/20 06/06/20 06/06/20 18:59 06:59 18:59 Intake Total 714 Balance 714 Weight 71.5 kg Intake: Oral 714 Other: # Voids 2 2 1 # Bowel Movements 0 - Exam Pleasant 64-year-old gentleman, appears well nourished and normally developed. Vital signs as documented. Head exam is unremarkable. No scleral icterus or corneal arcus noted. Neck is without jugular venous distension, thyromegaly, or carotid bruits. Carotid upstrokes are brisk bilaterally. Lungs have faint crackles in the lung bases bilaterally. Cardiac exam reveals the PMI to be normally sized and situated. Rhythm is irregular. First and second heart sounds normal. No murmurs, rubs or gallops. Abdominal exam reveals normal bowel sounds, no masses, no organomegaly and no aortic enlargement. Extremities are nonedematous and both femoral and pedal pulses are normal.Examination of the skin revealed no evidence of significant rashes, suspicious appearing nevi or other concerning lesions.Neurologically, the patient is awake and alert and the patient does not have any focal neurological deficit. Cranial nerves are essentially intact. - Labs CBC & Chem 7: 06/05/20 10:16 06/05/20 10:16 Labs: Abnormal Lab Results - Last 24 Hours (Table) 06/05/20 06/05/20 06/06/20 Range/Units 16:52 20:45 06:06 POC Glucose (mg/dL) 195 H 149 H 120 H (75-99) mg/dL 06/06/20 Range/Units 12:12 POC Glucose (mg/dL) 126 H (75-99) mg/dL Microbiology - Last 24 Hours (Table) 06/02/20 12:24 Blood Culture - Preliminary Blood No Growth after 72 hours Assessment and Plan Assessment: 1 acute Covid 19 related pneumonia. The patient has some limited groundless by the pulmonary infiltrates on the CAT scan of the chest and the patient was somewhat hypoxemic currently room air with a pulse ox of 93%. 2 new-onset atrial fibrillation requiring Cardizem drip at 5 mg per hour. Heparin drip initiated 3 dyspnea secondary to above 4 acute hypoxic respiratory failure secondary to above 5 lymphopenia secondary to above 6 hyponatremia with a sodium level of 128 7 abnormal LFTs secondary to above 8 coronary artery disease 9 hypertension 10 hyperlipidemia 11 chronic migraines 13 previous history of PCI and stent placement for coronary artery disease including stenting of RCA and circumflex back in 2010. Plan The patient was seen and evaluated by Dr. Julio He remains stable from the pulmonary standpoint Cleared for discharge once cleared by cardiology Complete ten-day course of dexamethasone Follow up with his PCP in relation to the Covid 19 I, the cosigning physician, performed a history & physical examination of the patient. Lungs sounds basilar crackles. Maintaining good O2 saturations in the 90s on room air. I discussed the assessment and plan of care with my nurse practitioner, Lilly Garner. I attest to the above note as dictated by her.
--- NOTE | 2020-06-06 14:48 | P.DS ---
Providers Date of admission: 06/02/20 14:16 Expected date of discharge: 06/06/20 Attending physician: Issac Cummings Consults: 06/02/20 14:17 Consult Physician Routine Consulting Provider: Steven Talavera Consult Reason/Comments: covid, dyspnea, covid PNA-hypoxia Do you want consulting provider notified?: Yes, Notify in am 06/03/20 11:00 Consult Physician Routine Consulting Provider: Melissa Webster Consult Reason/Comments: new onset afib Do you want consulting provider notified?: Already Contacted Primary care physician: Issac [facility] Course: HISTORY OF PRESENT ILLNESS This is a 64-year-old male patient of Dr. Cummings with past medical history of coronary artery disease with previous stenting most recently in May 2018, hypertension, hyperlipidemia. Patient had Coumadin 19 positive test done 2 weeks ago but has been continuing to have fevers, shortness of breath, generalized weakness and malaise. Symptoms continued to worsen with increasing shortness of breath. He denies any nausea vomiting or diarrhea but did have decreased appetite which is improved this morning. Patient came into [facility] emergency center for evaluation. Chest x-ray revealed moderate perihilar opacities, consistent with infiltrate. CTA of the chest was negative for PE. Bilateral diffuse groundglass opacities consistent with chronic opiate pneumonia was present. Patient was afebrile, heart rate 75, blood pressure 102/54, pulse ox 94% on room air. WBC 7.6, hemoglobin 15.3. Lymphocytes low at 0.4. D-dimer 0.9. Sodium 128, potassium 4.1, chloride 96, CO2 21, creatinine 0.88. Blood sugar 121. Ferritin 1434, magnesium 2.2. Lactic acid 1.8. Total bilirubin 1.3, AST 60, ALT 57, alkaline phosphatase 15 9. LDH 1046. Troponin negative. C-reactive protein initially 88.9 her repeat of 6.9. Pro-calcitonin 0.13. Patient was admitted to the MedSurg floor and seen by pulmonary medicine and continued on Lovenox dexamethasone and vitamin supplements. Patient subsequently went into A. fib with RVR and started on heparin drip and Cardizem drip, transferred to the cardiac stepdown unit. Cardiology consult added. Patient is currently pulse oxing 92% on room air. 06/04: Patient is seen today on the cardiac stepdown unit. Patient's pulse ox is 88% on room air, 94% on 2 L nasal cannula. Patient remains in atrial fibrillation and heparin drip remains in place. He has been started on Lopressor which was increased to 100 mg twice daily as heart rate was still in the low 100s. Cardiac monitors atrial fibrillation. Patient requesting to be no CODE STATUS. Repeat blood work reveals WBC 14.6. Sodium 129, potassium 4.2, chloride 103, CO2 16, BUN 22 and creatinine 0.88. Blood sugar 184. AST 71, ALT 112, alkaline phosphatase 67, LDH 764. C-reactive protein 31.8. Albumin 2.9. Echocardiogram reveals EF of 40-45% with borderline concentric left ventricular hypertrophy, mild tricuspid regurgitation, mild pulmonary hypertension. 06/05: Patient's heart rate is been running in the 120s to 130s, cardiology has increased Lopressor 150 mg twice daily. Heparin drip has been transitioned to eliquis. Patient states that he can feel the palpitations. Otherwise, he denies shortness of breath. Pulse ox is 90-93% on room air. He has been afebr ile, blood pressure 108/57. Repeat blood work reveals WBC 11.8, hemoglobin 14.5. Sodium is 129, potassium 4.8, chloride 103, CO2 22, creatinine 0.98. Blood sugar 117. AST 57, ALT 130, alkaline phosphatase 57. LDH is normal at 592. C-reactive protein is decreased at 20.4. Repeat chest x-ray reveals moderately increased patchy airspace opacities in the bilateral lungs. Anticipate possible discharge by tomorrow if heart rate is controlled. 06/06: Patient's heart rate is mildly elevated and Cardizem was started yesterday by cardiology and will increase this to 60 mg and plan for discharge home. He has been afebrile, pulse ox is in the 80s on room air. Patient is tolerating eliquis. Cardiology is cleared him for discharge as well as pulmonary medicine. Patient will be discharged home today in stable condition. ASSESSMENT AND PLAN 1. Acute COVID-19 pneumonia. 2. New onset atrial fibrillation, paroxysmal atrial fibrillation. 3. Elevated liver function tests secondary to Covid 19 infection. 4. Hyponatremia secondary to dehydration from Covid 19. 5. Hypertension. 6. History of coronary artery disease. 7. Hyperlipidemia. DISCHARGE PLAN HOME Impression and plan of care have been directed as dictated by the signing physician. Sravanthi Pimentel nurse practitioner acting as scribe for signing physician. Patient Condition at Discharge: Good Plan - Discharge Summary Discharge Rx Participant: No New Discharge Prescriptions: New Apixaban [Eliquis] 5 mg PO BID #60 tab Diltiazem Oral [Cardizem*] 60 mg PO TID #90 tab Metoprolol Tartrate [Lopressor] 150 mg PO BID #180 tab lisinopriL [Zestril] 10 mg PO DAILY #30 tab dexAMETHasone [Hexadrol] 6 mg PO DAILY #15 tab Zinc Sulfate [Orazinc] 220 mg PO DAILY cap Famotidine [Pepcid] 20 mg PO BID #60 tab Ascorbic Acid [Vitamin C] 1,000 mg PO DAILY tab Cholecalciferol [Vitamin D3 (25 Mcg = 1000 Iu)] 1,000 unit PO DAILY tab Continue Aspirin 81 mg PO DAILY #30 chew Nitroglycerin Sl Tabs [Nitrostat] 0.4 mg SUBLINGUAL Q5M PRN #25 tab PRN Reason: Chest Pain Clopidogrel [Plavix] 75 mg PO DAILY #30 tab Atorvastatin [Lipitor] 80 mg PO HS #30 tab Discontinued atenoloL [Tenormin] 12.5 mg PO HS lisinopriL [Zestril] 20 mg PO BID amLODIPine [Norvasc] 5 mg PO BID Discharge Medication List Aspirin 81 mg PO DAILY #30 chew 05/19/19 [Rx] Atorvastatin [Lipitor] 80 mg PO HS #30 tab 05/19/19 [Rx] Clopidogrel [Plavix] 75 mg PO DAILY #30 tab 05/19/19 [Rx] Nitroglycerin Sl Tabs [Nitrostat] 0.4 mg SUBLINGUAL Q5M PRN #25 tab 05/19/19 [Rx] Apixaban [Eliquis] 5 mg PO BID #60 tab 06/04/20 [Rx] Ascorbic Acid [Vitamin C] 1,000 mg PO DAILY tab 06/06/20 [Rx] Cholecalciferol [Vitamin D3 (25 Mcg = 1000 Iu)] 1,000 unit PO DAILY tab 06/06/20 [Rx] Diltiazem Oral [Cardizem*] 60 mg PO TID #90 tab 06/06/20 [Rx] Famotidine [Pepcid] 20 mg PO BID #60 tab 06/06/20 [Rx] Metoprolol Tartrate [Lopressor] 150 mg PO BID #180 tab 06/06/20 [Rx] Zinc Sulfate [Orazinc] 220 mg PO DAILY cap 06/06/20 [Rx] dexAMETHasone [Hexadrol] 6 mg PO DAILY #15 tab 06/06/20 [Rx] lisinopriL [Zestril] 10 mg PO DAILY #30 tab 06/06/20 [Rx] Follow up Appointment(s)/Referral(s): Shira Oswald MD [STAFF PHYSICIAN] - 06/20/20 3:00 pm () Issac Cummings MD [Primary Care Provider] - 06/14/20 1:15 am (Virtual phone call visit) Patient Instructions/Handouts: A-fib (Atrial Fibrillation) (DC) Activity/Diet/Wound Care/Special Instructions: pts first month of eliquis is filled for free at [facility] [email or web address] $10/ month copay coupon provided to pt for further Discharge Disposition: HOME SELF-CARE
[2020-06-06] MEDS ORDERED: DILTIAZEM ORAL 60 MG TAB PO SCH (16:00)
== END 2020-06-06 13:44 | disposition home or self-care (01) | DRG 177 ==
LOC: EC 10:58 → 4SSUR 14:16 → 3SCARD 06-03 04:02
PROVIDERS: ADMIT Internal Medicine Geriatric Medicine; ATTEND Internal Medicine Geriatric Medicine
DX: U07.1 COVID-19 (principal); J12.89 Other viral pneumonia; J96.01 Acute respiratory failure with hypoxia; E87.1 Hypo-osmolality and hyponatremia; I48.0 Paroxysmal atrial fibrillation; I27.20 Pulmonary hypertension, unspecified; I25.10 Atherosclerotic heart disease of native coronary artery without angina pectoris; I10 Essential (primary) hypertension; D72.810 Lymphocytopenia; E78.5 Hyperlipidemia, unspecified; E86.0 Dehydration; E86.1 Hypovolemia; G43.909 Migraine, unspecified, not intractable, without status migrainosus; I07.1 Rheumatic tricuspid insufficiency; R79.89 Other specified abnormal findings of blood chemistry; Z86.010 Personal history of colon polyps; Z79.01 Long term (current) use of anticoagulants; Z79.02 Long term (current) use of antithrombotics/antiplatelets; Z79.82 Long term (current) use of aspirin; Z79.899 Other long term (current) drug therapy; Z95.5 Presence of coronary angioplasty implant and graft
CPT/HCPCS: 36415; 71045; 71275; 80053; 82728; 83605; 83615; 83735; 84145; 84484; 85025; 85379; 85610; 85730; 86140; 87040; 93005; 93306; 99285

== ENCOUNTER → 2020-07-03 | Outpatient (CLI) | payer BC, MEDICARE ==
--- NOTE | 2020-07-03 12:14 | XR ---
EXAMINATION TYPE: XR chest 2V DATE OF EXAM: 07/03/2020 COMPARISON: 06/05/2020 TECHNIQUE: PA and lateral views submitted. HISTORY: Chest pain FINDINGS: There is a coarsened interstitium. Biapical pleural thickening. No pleural effusion. Heart is promine nt in size. There is areas of subsegmental consolidation. Underlying COPD noted. IMPRESSION: 1. Diffuse interstitial changes compatible with interstitial pneumonitis or pneumonia with patchy are as of multifocal infiltrate stable in appearance.
== END | disposition home or self-care (01) ==
LOC: RADXRMAIN 11:33
PROVIDERS: ATTEND Internal Medicine Geriatric Medicine
DX: R91.8 Other nonspecific abnormal finding of lung field (principal); R06.02 Shortness of breath
CPT/HCPCS: 71046

== ENCOUNTER 2021-10-25 11:40 | Observation (INO) | payer BC, MEDICARE ==
[2021-10-25] MEDS ORDERED: NITROGLYCERIN SL TABS 0.4 MG TAB SUBLINGUAL STA ×3 (12:04)
[2021-10-25] MEDS ORDERED: ASPIRIN 81 MG PO STA (12:04)
--- NOTE | 2021-10-25 12:15 | ED ---
General Adult HPI - General Chief complaint: Chest Pain Stated complaint: chest pain Time Seen by Provider: 10/25/21 11:51 Source: patient, RN notes reviewed Mode of arrival: ambulatory Limitations: no limitations - History of Present Illness Initial comments: Patient is a pleasant 66-year-old male presenting to the emergency Department with complaints of chest discomfort. Onset of symptoms was around 9 AM. Discomfort has been somewhat steady rated 6/10. Discomfort feels like tight. There may be some radiation towards left arm. No associated dyspnea, nausea, or diaphoresis. Patient does have history of similar symptoms previously when he did need cardiac stent. - Related Data Previous Rx's Medication Instructions Recorded Aspirin 81 mg PO DAILY #30 chew 05/19/19 Atorvastatin [Lipitor] 80 mg PO HS #30 tab 05/19/19 Clopidogrel [Plavix] 75 mg PO DAILY #30 tab 05/19/19 Nitroglycerin Sl Tabs [Nitrostat] 0.4 mg SUBLINGUAL Q5M PRN #25 tab 05/19/19 Apixaban [Eliquis] 5 mg PO BID #60 tab 06/04/20 Ascorbic Acid [Vitamin C] 1,000 mg PO DAILY tab 06/06/20 Cholecalciferol [Vitamin D3 (25 1,000 unit PO DAILY tab 06/06/20 Mcg = 1000 Iu)] Diltiazem Oral [Cardizem*] 60 mg PO TID #90 tab 06/06/20 Famotidine [Pepcid] 20 mg PO BID #60 tab 06/06/20 Metoprolol Tartrate [Lopressor] 150 mg PO BID #180 tab 06/06/20 Zinc Sulfate [Orazinc] 220 mg PO DAILY cap 06/06/20 dexAMETHasone ORAL [Hexadrol] 6 mg PO DAILY #15 tab 06/06/20 lisinopriL [Zestril] 10 mg PO DAILY #30 tab 06/06/20 Allergies Allergy/AdvReac Type Severity Reaction Status Date / Time No Known Allergies Allergy Verified 10/25/21 11:43 Review of Systems ROS Statement: Those systems with pertinent positive or pertinent negative responses have been documented in the HPI. ROS Other: All systems not noted in ROS Statement are negative. Constitutional: Denies: fever Eyes: Denies: eye pain ENT: Denies: ear pain Respiratory: Denies: cough, dyspnea Cardiovascular: Reports: chest pain Endocrine: Denies: fatigue Gastrointestinal: Denies: abdominal pain Genitourinary: Denies: dysuria Musculoskeletal: Denies: back pain Skin: Denies: rash Neurological: Denies: weakness Past Medical History Past Medical History: Coronary Artery Disease (CAD), Hyperlipidemia, Hypertension Additional Past Medical History / Comment(s): Colon polyps in past History of Any Multi-Drug Resistant Organisms: None Reported Past Surgical History: Heart Catheterization With Stent, Orthopedic Surgery Additional Past Surgical History / Comment(s): stent X3 May 2019 1 additional stent put in, right arm tendon repiar Past Anesthesia/Blood Transfusion Reactions: No Reported Reaction Date of Last Stent Placement:: 05/2019 Past Psychological History: No Psychological Hx Reported Smoking Status: Never smoker Past Alcohol Use History: Occasional Past Drug Use History: None Reported - Past Family History Father Family Medical History: Cancer Additional Family Medical History / Comment(s): COLON General Exam Limitations: no limitations General appearance: alert, in no apparent distress Head exam: Present: normocephalic Eye exam: Present: normal appearance Neck exam: Present: normal inspection Respiratory exam: Present: normal lung sounds bilaterally. Absent: chest wall tenderness Cardiovascular Exam: Present: regular rate, normal rhythm, normal heart sounds Expanded Peripheral pulses: 2+: Radial (R), Radial (L), Posterior Tibialis (R), Posterior Tibialis (L), Dorsalis Pedis (R), Dorsalis Pedis (L) GI/Abdominal exam: Present: soft. Absent: tenderness Extremities exam: Present: normal inspection. Absent: pedal edema, calf tenderness Neurological exam: Present: alert Psychiatric exam: Present: normal affect, normal mood Skin exam: Present: normal color Course Vital Signs 10/25/21 10/25/21 11:42 13:12 Temperature 98 F Pulse Rate 50 L 53 L Respiratory 18 18 Rate Blood Pressure 147/85 112/81 O2 Sat by Pulse 96 98 Oximetry EKG Findings - EKG Comments: EKG Findings:: Sinus bradycardia 57. Premature supraventricular complexes present. OR 185. QRS 88. QT 385. QTC 379. Left axis. Normal QRS. Minimal inferior ST depression Medical Decision Making - Medical Decision Making Patient reevaluated and updated. Case discussed with Dr. Cummings, who will admit his patient. Cardiology will be consulted. - Lab Data Result diagrams: 10/25/21 12:17 10/25/21 12:17 Lab Results 10/25/21 10/25/21 10/25/21 Range/Units 12:17 12:17 12:17 WBC 6.5 (3.8-10.6) k/uL RBC 4.69 (4.30-5.90) m/uL Hgb 15.9 (13.0-17.5) gm/dL Hct 44.6 (39.0-53.0) % MCV 95.2 (80.0-100.0) fL MCH 33.8 (25.0-35.0) pg MCHC 35.5 (31.0-37.0) g/dL RDW 12.0 (11.5-15.5) % Plt Count 152 (150-450) k/uL MPV 8.7 Neutrophils % 63 % Lymphocytes % 25 % Monocytes % 5 % Eosinophils % 5 % Basophils % 1 % Neutrophils # 4.0 (1.3-7.7) k/uL Lymphocytes # 1.6 (1.0-4.8) k/uL Monocytes # 0.3 (0-1.0) k/uL Eosinophils # 0.3 (0-0.7) k/uL Basophils # 0.0 (0-0.2) k/uL Hyperchromasia Slight PT 11.5 (9.0-12.0) sec INR 1.1 (<1.2) APTT 28.2 (22.0-30.0) sec Sodium 141 (137-145) mmol/L Potassium 4.1 (3.5-5.1) mmol/L Chloride 107 (98-107) mmol/L Carbon Dioxide 23 (22-30) mmol/L Anion Gap 11 mmol/L BUN 20 (9-20) mg/dL Creatinine 1.10 (0.66-1.25) mg/dL Est GFR (CKD-EPI)AfAm 79 (>60 ml/min/1.73 sqM) Est GFR (CKD-EPI)NonAf 69 (>60 ml/min/1.73 sqM) Glucose 93 (74-99) mg/dL Calcium 9.2 (8.4-10.2) mg/dL Magnesium 2.1 (1.6-2.3) mg/dL Total Bilirubin 1.0 (0.2-1.3) mg/dL AST 28 (17-59) U/L ALT 38 (4-49) U/L Alkaline Phosphatase 51 (38-126) U/L Troponin I (0.000-0.034) ng/mL Total Protein 6.7 (6.3-8.2) g/dL Albumin 4.2 (3.5-5.0) g/dL 10/25/21 Range/Units 12:17 WBC (3.8-10.6) k/uL RBC (4.30-5.90) m/uL Hgb (13.0-17.5) gm/dL Hct (39.0-53.0) % MCV (80.0-100.0) fL MCH (25.0-35.0) pg MCHC (31.0-37.0) g/dL RDW (11.5-15.5) % Plt Count (150-450) k/uL MPV Neutrophils % % Lymphocytes % % Monocytes % % Eosinophils % % Basophils % % Neutrophils # (1.3-7.7) k/uL Lymphocytes # (1.0-4.8) k/uL Monocytes # (0-1.0) k/uL Eosinophils # (0-0.7) k/uL Basophils # (0-0.2) k/uL Hyperchromasia PT (9.0-12.0) sec INR (<1.2) APTT (22.0-30.0) sec Sodium (137-145) mmol/L Potassium (3.5-5.1) mmol/L Chloride (98-107) mmol/L Carbon Dioxide (22-30) mmol/L Anion Gap mmol/L BUN (9-20) mg/dL Creatinine (0.66-1.25) mg/dL Est GFR (CKD-EPI)AfAm (>60 ml/min/1.73 sqM) Est GFR (CKD-EPI)NonAf (>60 ml/min/1.73 sqM) Glucose (74-99) mg/dL Calcium (8.4-10.2) mg/dL Magnesium (1.6-2.3) mg/dL Total Bilirubin (0.2-1.3) mg/dL AST (17-59) U/L ALT (4-49) U/L Alkaline Phosphatase (38-126) U/L Troponin I <0.012 (0.000-0.034) ng/mL Total Protein (6.3-8.2) g/dL Albumin (3.5-5.0) g/dL - Radiology Data Radiology results: image reviewed (Chest x-ray shows no acute process) Disposition Clinical Impression: Chest pain Disposition: ADMITTED IP TO THIS HOSP Is patient prescribed a controlled substance at d/c from ED?: No Referrals: Issac Cummings MD [Primary Care Provider] - 1-2 days Time of Disposition: 13:43
[2021-10-25 12:35] LABS: Basophils % (A) 1 %; Eosinophils # (A) 0.3 k/uL (0-0.7); Eosinophils % (A) 5 %; HCT 44.6 % (39.0-53.0); HGB 15.9 gm/dL (13.0-17.5); Hyperchromasia Slight; Lymphocytes # (A) 1.6 k/uL (1.0-4.8); Lymphocytes % (A) 25 %; MCH 33.8 pg (25.0-35.0); MCHC 35.5 g/dL (31.0-37.0); MCV 95.2 fL (80.0-100.0); Mean Platelet Volume 8.7; Monocytes # (A) 0.3 k/uL (0-1.0); Monocytes % (A) 5 %; Neutrophils % (A) 63 %; Platelet Count 152 k/uL (150-450); RBC 4.69 m/uL (4.30-5.90); WBC 6.5 k/uL (3.8-10.6)
[2021-10-25 12:44] LABS: INR 1.1 (<1.2); Partial Thromboplastin Time 28.2 sec (22.0-30.0); Prothrombin Time 11.5 sec (9.0-12.0)
[2021-10-25 12:57] LABS: Albumin 4.2 g/dL (3.5-5.0); Calcium 9.2 mg/dL (8.4-10.2); Magnesium 2.1 mg/dL (1.6-2.3); Potassium 4.1 mmol/L (3.5-5.1); Total Protein 6.7 g/dL (6.3-8.2)
--- NOTE | 2021-10-25 13:19 | XR ---
EXAMINATION TYPE: XR chest 2V DATE OF EXAM: 10/25/2021 COMPARISON: Chest x-ray July 03, 2020 HISTORY: Chest pain and pressure. TECHNIQUE: Frontal and lateral views of the chest are obtained. FINDINGS: There is no focal air space opacity, pleural effusion, or pneumothorax seen. The cardiac silhouette size is stable and upper limits of normal. The osseous structures are intact. IMPRESSION: No acute process currently.
[2021-10-25] MEDS ORDERED: NITROGLYCERIN SL TABS 0.4 MG TAB SUBLINGUAL PRN (13:44)
[2021-10-25] MEDS ORDERED: ACETAMINOPHEN TAB 325 MG TAB PO PRN (17:52)
[2021-10-25] MEDS: NITROGLYCERIN OINT 1 INCH/GM PACKET TOPICAL SCH ×2 (17:56→23:12)
[2021-10-25] MEDS: lisinopriL 20 MG TAB PO SCH (20:58)
[2021-10-25] MEDS: FAMOTIDINE 20 MG TAB PO SCH (20:58)
[2021-10-25] MEDS: APIXABAN 5 MG TAB PO SCH (20:59)
[2021-10-25] MEDS ORDERED: METOPROLOL TARTRATE 50 MG TAB PO SCH (21:00)
[2021-10-25] MEDS ORDERED: ATORVASTATIN 80 MG TAB PO SCH (21:00)
[2021-10-25] MEDS: METOPROLOL TARTRATE 50 MG TAB PO SCH (22:12)
[2021-10-26] MEDS: NITROGLYCERIN OINT 1 INCH/GM PACKET TOPICAL SCH (05:47)
[2021-10-26] MEDS: APIXABAN 5 MG TAB PO SCH (07:16)
[2021-10-26] MEDS: METOPROLOL TARTRATE 50 MG TAB PO SCH (07:16)
[2021-10-26] MEDS: lisinopriL 20 MG TAB PO SCH (07:16)
[2021-10-26] MEDS: FAMOTIDINE 20 MG TAB PO SCH (07:16)
[2021-10-26 07:22] VITALS: BP 110/64; PULSE 60; RESP 18; TEMP 98.7
[2021-10-26] MEDS ORDERED: ASPIRIN 325 MG TAB PO SCH (09:00)
[2021-10-26] MEDS ORDERED: CHOLECALCIFEROL 25 MCG (1000 IU) TABLET PO SCH (09:00)
[2021-10-26] MEDS ORDERED: ASPIRIN 81 MG PO SCH (09:00)
[2021-10-26] MEDS ORDERED: ASCORBIC ACID 500 MG TAB PO SCH (09:00)
[2021-10-26] MEDS ORDERED: hydroCHLOROthiazide 25 MG TAB PO SCH (09:00)
[2021-10-26 09:54] LABS: Chol/HDL Ratio 4.96 Ratio; LDL Cholesterol,Calculated 61.4 mg/dL (0.0-131.0)
--- NOTE | 2021-10-26 11:54 | P.CRDCN ---
History of Present Illness History of present illness: HISTORY OF PRESENTING ILLNESS This is a pleasant 66-year-old male past medical history significant for urinary artery disease status post PCI 2011 in 2019, paroxysmal atrial fibrillation on liquids, hypertension and dyslipidemia. He follows in the office with Dr. Oswald. We have been asked to see in consultation for chest pain. He states yesterday morning he was up for a couple of hours when all of a sudden he developed a tightness in his chest in the midsternal region. It was going off-and-on for a couple of hours not associated with shortness of breath, dizziness, nausea, vomiting or diaphoresis. There was no radiation to the arm, back, neck or jaw. At times it felt like it did become worse when he would bend over or move his upper torso however this is not consistent. Nitro patch was applied and his pain is mostly been resolved since then. His last stent was to the PLV branch in 2019 and he has not had a stress test since that time. Most recent echo 05/2020 revealed EF 40-45%, mild TR and dilated aortic root 3.9 cm DIAGNOSTICS EKG reveals sinus bradycardia heart rate of 57, PACs and nonspecific abnormalities noted of the anterior lateral leads. Telemetry tracings indicate sinus rhythm. Chest xray negative for an acute cardiopulmonary process. Laboratory reviewed, CBC unremarkable, sodium 141, potassium 4.1, creatinine 1.1, magnesium 2.1, cardiac enzymes negative 3, LDL 61 and HDL 27. Current cardiac medications include Eliquis 5 mg twice a day, aspirin 81 mg daily, atorvastatin 80 mg daily, hydrochlorothiazide 25 mg daily, lisinopril 20 mg twice a day and metoprolol 25 mg twice a day. REVIEW OF SYSTEMS At the time of my exam: CONSTITUTIONAL: Denies fever or chills. CARDIOVASCULAR: Denies chest pain, shortness of breath, orthopnea, PND or palpitations. RESPIRATORY: Denies cough. GASTROINTESTINAL: Denies abdominal pain, diarrhea, constipation, nausea or vomiting. MUSCULOSKELETAL: Denies myalgias. NEUROLOGIC: Denies numbness, tingling, headache or weakness. ENDOCRINE: Denies fatigue, weight change, polydipsia or polyurina. GENITOURINARY: Denies burning, hematuria or urgency with micturation. HEMATOLOGIC: Denies history of anemia or bleeding. PHYSICAL EXAMINATION Blood pressure 110/64 heart rate 60 afebrile and maintaining oxygen saturation on room air. CONSTITUTIONAL: No apparent distress. HEENT: Head is normocephalic. Pupils are equal, round. Sclerae anicteric. Mucous membranes of the mouth are moist. No JVD. No carotid bruit. CHEST EXAMINATION: Lungs are clear to auscultation. No chest wall tenderness is noted on palpation or with deep breathing. HEART EXAMINATION: Regular rate and rhythm. S1, S2 heard. No murmurs, gallops or rub. ABDOMEN: Soft, nontender. EXTREMITIES: 2+ peripheral pulses, no lower extremity edema and no calf tenderness. NEUROLOGIC EXAMINATION: Patient is awake, alert and oriented x3. ASSESSMENT Chest pain CAD s/p PCI RCA 2010 and PLV 2019 Paroxysmal atrial fib on eliquis, currently in SR Hypertension Hyperlipidemia PLAN An acute coronary event has been ruled out. Obtain 2D echocardiogram and doppler study to assess cardiac structure and function. If normal echo he can be discharged home to follow up with Dr. Oswald. Thank you kindly for this consultation. Nurse Practitioner note has been reviewed, I agree with a documented findings and plan of care. Patient was seen and examined. Past Medical History Past Medical History: Atrial Fibrillation, Coronary Artery Disease (CAD), Hyperlipidemia, Hypertension, Pneumonia Additional Past Medical History / Comment(s): Benign colon polyps in past, past migraines. History of Any Multi-Drug Resistant Organisms: None Reported Past Surgical History: Heart Catheterization, Heart Catheterization With Stent, Orthopedic Surgery Additional Past Surgical History / Comment(s): PCI/stent X3 2010, PCI/stents 2019 x1, right arm tendon repiar Past Anesthesia/Blood Transfusion Reactions: No Reported Reaction Date of Last Stent Placement:: 05/2019 Smoking Status: Former smoker - Past Family History Father Family Medical History: Cancer, Hyperlipidemia, Hypertension Additional Family Medical History / Comment(s): COLON Mother Family Medical History: Congestive Heart Failure (CHF), Coronary Artery Disease (CAD), Diabetes Mellitus, Hyperlipidemia, Hypertension Additional Family Medical History / Comment(s): 4 vessel CABG Medications and Allergies Home Medications Medication Instructions Recorded Confirmed Type Aspirin 81 mg PO DAILY #30 chew 05/19/19 10/25/21 Rx Atorvastatin [Lipitor] 80 mg PO HS #30 tab 05/19/19 10/25/21 Rx Apixaban [Eliquis] 5 mg PO BID #60 tab 06/04/20 10/25/21 Rx Ascorbic Acid [Vitamin C] 1,000 mg PO DAILY tab 06/06/20 10/25/21 Rx Famotidine [Pepcid] 20 mg PO BID #60 tab 06/06/20 10/25/21 Rx Zinc Sulfate [Orazinc] 220 mg PO DAILY cap 06/06/20 10/25/21 Rx Cholecalciferol [Vitamin D3 (25 25 mcg PO DAILY 10/25/21 10/25/21 History Mcg = 1000 Iu)] Metoprolol Tartrate [Lopressor] 25 mg PO BID 10/25/21 10/25/21 History hydroCHLOROthiazide [Hydrodiuril] 25 mg PO DAILY 10/25/21 10/25/21 History lisinopriL [Prinivil] 20 mg PO BID 10/25/21 10/25/21 History Acetaminophen Tab [Tylenol] 650 mg PO Q6HR PRN tab 10/26/21 Rx Isosorbide Mononitrate ER [Imdur] 15 mg PO DAILY #30 tab 10/26/21 Rx Nitroglycerin Sl Tabs [Nitrostat] 0.4 mg SUBLINGUAL Q5M PRN #25 tab 10/26/21 Rx Allergies Allergy/AdvReac Type Severity Reaction Status Date / Time No Known Allergies Allergy Verified 10/25/21 11:43 Physical Exam Vitals: Vital Signs Temp Pulse Pulse Pulse Pulse Resp BP 10/26/21 07:00 98.7 F 60 18 10/26/21 02:27 97.5 F L 46 L 16 10/25/21 19:46 52 L 16 10/25/21 19:00 55 L 16 10/25/21 18:30 97.4 F L 55 L 16 10/25/21 17:45 97.4 F L 54 L 17 10/25/21 14:58 97.5 F L 54 L 22 10/25/21 14:36 98.1 F 53 L 18 123/73 10/25/21 13:44 10/25/21 13:12 53 L 18 112/81 10/25/21 11:42 98 F 50 L 18 147/85 BP BP Pulse Ox 10/26/21 07:00 110/64 96 10/26/21 02:27 96/60 98 10/25/21 19:46 129/75 97 10/25/21 19:00 10/25/21 18:30 121/72 97 10/25/21 17:45 134/82 10/25/21 14:58 129/83 100 10/25/21 14:36 99 10/25/21 13:44 99 10/25/21 13:12 98 10/25/21 11:42 96 Intake and Output 10/25/21 10/26/21 10/26/21 22:59 06:59 14:59 Intake Total 118 Balance 118 Intake: Oral 118 Other: # Voids 1 1 Weight 92 kg Results 10/25/21 12:17 10/25/21 12:17 Cardiac Enzymes 10/25/21 10/25/21 10/25/21 Range/Units 12:17 12:17 16:03 AST 28 (17-59) U/L Troponin I <0.012 <0.012 (0.000-0.034) ng/mL 10/25/21 Range/Units 18:35 AST (17-59) U/L Troponin I <0.012 (0.000-0.034) ng/mL Coagulation 10/25/21 Range/Units 12:17 PT 11.5 (9.0-12.0) sec APTT 28.2 (22.0-30.0) sec CBC 10/25/21 Range/Units 12:17 WBC 6.5 (3.8-10.6) k/uL RBC 4.69 (4.30-5.90) m/uL Hgb 15.9 (13.0-17.5) gm/dL Hct 44.6 (39.0-53.0) % Plt Count 152 (150-450) k/uL Comprehensive Metabolic Panel 10/25/21 Range/Units 12:17 Sodium 141 (137-145) mmol/L Potassium 4.1 (3.5-5.1) mmol/L Chloride 107 (98-107) mmol/L Carbon Dioxide 23 (22-30) mmol/L BUN 20 (9-20) mg/dL Creatinine 1.10 (0.66-1.25) mg/dL Glucose 93 (74-99) mg/dL Calcium 9.2 (8.4-10.2) mg/dL AST 28 (17-59) U/L ALT 38 (4-49) U/L Alkaline Phosphatase 51 (38-126) U/L Total Protein 6.7 (6.3-8.2) g/dL Albumin 4.2 (3.5-5.0) g/dL Current Medications Generic Name Dose Route Start Last Admin Trade Name Freq PRN Reason Stop Dose Admin Acetaminophen 650 mg 10/25/21 17:52 10/25/21 18:40 Acetaminophen Tab 325 Mg Tab PO 650 mg Q6HR PRN Administration Fever and/ or Pain Apixaban 5 mg 10/25/21 21:00 10/26/21 07:16 Apixaban 5 Mg Tab PO 5 mg BID JUANY Administration Protocol Ascorbic Acid 1,000 mg 10/26/21 09:00 10/26/21 07:16 Ascorbic Acid 500 Mg Tab PO 1,000 mg DAILY JUANY Administration Aspirin 325 mg 10/26/21 09:00 10/26/21 07:16 Aspirin 325 Mg Tab PO 325 mg DAILY JUANY Administration Aspirin 81 mg 10/26/21 09:00 10/26/21 07:16 Aspirin 81 Mg PO 81 mg DAILY [facility] Administration Atorvastatin Calcium 80 mg 10/25/21 21:00 10/25/21 20:59 Atorvastatin 80 Mg Tab PO 80 mg HS [facility] Administration Cholecalciferol 25 mcg 10/26/21 09:00 10/26/21 07:16 Cholecalciferol 25 Mcg (1000 Iu) Tablet PO 25 mcg DAILY [facility] Administration Famotidine 20 mg 10/25/21 21:00 10/26/21 07:16 Famotidine 20 Mg Tab PO 20 mg BID JUANY Administration Hydrochlorothiazide 25 mg 10/26/21 09:00 10/26/21 07:16 Hydrochlorothiazide 25 Mg Tab PO 25 mg DAILY JUANY Administration Lisinopril 20 mg 10/25/21 21:00 10/26/21 07:16 Lisinopril 20 Mg Tab PO 20 mg BID JUANY Administration Metoprolol Tartrate 25 mg 10/25/21 22:15 10/26/21 07:16 Metoprolol Tartrate 50 Mg Tab PO 25 mg BID JUANY Administration Nitroglycerin 0.4 mg 10/25/21 13:44 Nitroglycerin Sl Tabs 0.4 Mg Tab SUBLINGUAL Q5M PRN Chest Pain Nitroglycerin 1 inch 10/25/21 18:00 10/26/21 05:47 Nitroglycerin Oint 1 Inch/Gm Packet TOPICAL 1 inch Q6HR JUANY Administration Intake and Output 04/15/22 04/16/22 04/16/22 22:59 06:59 14:59 Intake Total 118 Balance 118 Intake: Oral 118 Other: # Voids 1 1 Weight 92 kg 10/25/21 12:17 10/25/21 12:17
--- NOTE | 2021-10-26 12:31 | ECHOF ---
Referral Reason:cp MEASUREMENTS -------- HEIGHT: 182.9 cm WEIGHT: 91.6 kg BP: RVIDd: 2.9 cm (< 3.3) IVSd: 1.2 cm (0.6 - 1.1) LVIDd: 4.7 cm (3.9 - 5.3) LVPWd: 1.2 cm (0.6 - 1.1) IVSs: 1.4 cm LVIDs: 4.1 cm LVPWs: 2.5 cm LAESV Index (A-L): 28.04 ml/m Ao Diam: 2.6 cm (2.0 - 3.7) LA Diam: 4.1 cm (2.7 - 3.8) MV E Saúl: 0.63 m/s MV DecT: 266 ms MV A Saúl: 0.77 m/s MV E/A Ratio: 0.82 RAP: 5.00 mmHg RVSP: 36.87 mmHg FINDINGS -------- Sinus rhythm. This was a technically good study. The left ventricular size is normal. There is mild concentric left ventricular hypertrophy. There is normal global left ventricular contractility. Overall left ventricular systolic function is nor mal with, an EF between 55 - 60 %. The right ventricle is normal in size. Normal LA size by volume 22+/-6 ml/m2. The right atrial size is normal. The aortic valve is trileaflet, and appears structurally normal. No aortic stenosis or regurgitation. Mild mitral regurgitation is present. Mild tricuspid regurgitation present. There is mild pulmonary hypertension. The right ventricular systolic pressure, as measured by Doppler, is 36.87mmHg. Trace/mild (physiologic) pulmonic regurgitation. Echo free space indicative of a pericardial fat pad. CONCLUSIONS -------- 1. The left ventricular size is normal. 2. There is mild concentric left ventricular hypertrophy. 3. There is normal global left ventricular contractility. 4. Overall left ventricular systolic function is normal with, an EF between 55 - 60 %. 5. The right ventricle is normal in size. 6. Normal LA size by volume 22+/-6 ml/m2. 7. The right atrial size is normal. 8. The aortic valve is trileaflet, and appears structurally normal. No aortic stenosis or regurgitati on. 9. Mild mitral regurgitation is present. 10. Mild tricuspid regurgitation present. 11. There is mild pulmonary hypertension. 12. The right ventricular systolic pressure, as measured by Doppler, is 36.87mmHg. 13. Echo free space indicative of a pericardial fat pad. NET TECHNICAL ARCHITECT: Karena House RDCS
--- NOTE | 2021-10-26 20:36 | P.HPIM ---
History of Present Illness H&P Date: 10/25/21 HISTORY OF PRESENT ILLNESS 66-year-old one of my office patient with past medical history of coronary artery disease post PCI and stent placement first was done in 2010 last one was done 2019 was noticed to have history of atrial fibrillation on oral anticoagulation was also known to have history of chronic migraine, chronic kidney disease, history of hypertension and hyperlipidemia seen cardiology on regular basis and testing are up-to-date. patient is seen in our office about 3 times a year and has been doing well with no major complication. Last echocardiogram done in 2019 showed ejection fraction of 40-45% has not improved since his last angioplasty back 2018. Patient has been doing well till the morning of 10/25/2021 when developed to have significant tightness and pressure in the midsternal area worsening with exertion symptom or associated with mild shortness of breath palpitation no cold sweat and nausea vomiting no GI symptoms. No radiation but his symptom had reminded him of his episode in 2019 when he had his [facility] the time. Patient ended up coming to the emergency department where was seen and evaluated after giving him nitroglycerin his symptoms improved slightly but did not clear completely. Patient has been on anticoagulation was placed on nitro paste and admitted to the hospital will be seeing cardiology CK and troponin 2 be done an d plan for possible intervention versus stress test. REVIEW OF SYSTEMS Constitutional: Reports fever, Reports chills, Reports sweats. No weight change. Reports weakness, Reports fatigue Reports lethargy. Reportsdaytime sleepiness. EENT: No headache. No blurred vision or double vision, no loss of vision. No loss of Hearing, no ringing in the ears, Reports dizziness. No nasal drainage or congestion. No epistaxis. Reports sore throat. Lungs: Reports shortness of breath, Reportscough, no sputum production. No wheezing. Cardiovascular: positive chest pain and angina, no lower extremity edema. No palpitations. No paroxysmal nocturnal dyspnea. No orthopnea. Reports lightheadedness or dizziness. No syncopal episodes. Abdominal: No abdominal pain. No nausea, vomiting. No diarrhea. No constipation. No bloody or tarry stools. No loss of appetite. Genitourinary: No dysuria, increased frequency, urgency. No urinary retention. Musculoskeletal: No myalgias. Reports muscle weakness, no gait dysfunction, no frequent falls. No back pain. No neck pain. Integumentary: No wounds, no lesions. No rash or pruritus. Neurologic: No aphasia. No facial droop. No change in mentation. No head injury. No headache. No paralysis. No paresthesia. Psychiatric: No depression. No anxiety. Endocrine: No abnormal blood sugars. social history: smoking in 1979, smoked for 10 years had tachycardia only, no alcohol abuse, does not use any CPAP no oxygen walker or cane. patient is and lives with his . Family history: his father dying from colon cancer, mother with heart disease, siblings with history of CAD and hypertension. PHYSICAL EXAMINATION Gen: This is a 64-year-old male. His resting in bed and appears comfortable. No acute respiratory distress is noted. HEENT: Head is atraumatic, normocephalic. Pupils equal, round. Sclerae is anicteric. NECK: Supple. No JVD. No lymphadenopathy. No thyromegaly. LUNGS: Clear to auscultation. Diminished in bilateral bases. No intercostal retractions. HEART: Irregular rate and rhythm. No murmur. ABDOMEN: Soft. Bowel sounds are present. No masses. No tenderness. EXTREMITIES: No pedal edema. No calf tenderness. Dorsalis pedis +2 bilaterally. NEUROLOGICAL: Patient is awake, alert and oriented x3. Cranial nerves 2 through 12 are grossly intact. ASSESSMENT AND PLAN 1. acute chest pain and recurrent angina: Symptom improvement with nitroglycerin with known history of coronary artery disease, patient be admitted to the hospital continue anticoagulation, continue nitro, consult cardiology CK with troponin 3 be done and patient might require to go for intervention. 2. History of coronary artery disease. post angioplasty and stent placement last one was in 2019, Continue aspirin 81 mg daily, continue see cardiology continue statin and aspirin. 3. onset atrial fibrillation, paroxysmal atrial fibrillation. remain on Eliquis and metoprolol. 4. Hypertension. Continue lisinopril 10 mg twice daily and Lopressor. 5. cardiomyopathy: Ischemic type with ejection fraction still at 4045 percentile, still on medical management doing well. 6. Hyperlipidemia. Continue Lipitor 80 mg at bedtime. 7. stage II chronic kidney disease: Has been stable his kidney function is back to normal at this point GFR today 69. 8. GI prophylaxis. Pepcid 20 mg twice daily. patient will be admitted to the hospital for 1-2 nights stay. Past Medical History Past Medical History: Atrial Fibrillation, Coronary Artery Disease (CAD), H yperlipidemia, Hypertension, Pneumonia Additional Past Medical History / Comment(s): Benign colon polyps in past, past migraines. History of Any Multi-Drug Resistant Organisms: None Reported Past Surgical History: Heart Catheterization, Heart Catheterization With Stent, Orthopedic Surgery Additional Past Surgical History / Comment(s): PCI/stent X3 2010, PCI/stents 2018 x1, right arm tendon repiar Past Anesthesia/Blood Transfusion Reactions: No Reported Reaction Date of Last Stent Placement:: 05/2019 Smoking Status: Former smoker - Past Family History Father Family Medical History: Cancer, Hyperlipidemia, Hypertension Additional Family Medical History / Comment(s): COLON Mother Family Medical History: Congestive Heart Failure (CHF), Coronary Artery Disease (CAD), Diabetes Mellitus, Hyperlipidemia, Hypertension Additional Family Medical History / Comment(s): 4 vessel CABG Medications and Allergies Home Medications Medication Instructions Recorded Confirmed Type Aspirin 81 mg PO DAILY #30 chew 05/19/19 10/25/21 Rx Atorvastatin [Lipitor] 80 mg PO HS #30 tab 05/19/19 10/25/21 Rx Apixaban [Eliquis] 5 mg PO BID #60 tab 06/04/20 10/25/21 Rx Ascorbic Acid [Vitamin C] 1,000 mg PO DAILY tab 06/06/20 10/25/21 Rx Famotidine [Pepcid] 20 mg PO BID #60 tab 06/06/20 10/25/21 Rx Zinc Sulfate [Orazinc] 220 mg PO DAILY cap 06/06/20 10/25/21 Rx Cholecalciferol [Vitamin D3 (25 25 mcg PO DAILY 10/25/21 10/25/21 History Mcg = 1000 Iu)] Metoprolol Tartrate [Lopressor] 25 mg PO BID 10/25/21 10/25/21 History hydroCHLOROthiazide [Hydrodiuril] 25 mg PO DAILY 10/25/21 10/25/21 History lisinopriL [Prinivil] 20 mg PO BID 10/25/21 10/25/21 History Acetaminophen Tab [Tylenol] 650 mg PO Q6HR PRN tab 10/26/21 Rx Isosorbide Mononitrate ER [Imdur] 15 mg PO DAILY #30 tab 10/26/21 Rx Nitroglycerin Sl Tabs [Nitrostat] 0.4 mg SUBLINGUAL Q5M PRN #25 tab 10/26/21 Rx Allergies Allergy/AdvReac Type Severity Reaction Status Date / Time No Known Allergies Allergy Verified 10/25/21 11:43 Physical Exam Vitals: Vital Signs Temp Pulse Pulse Resp BP BP Pulse Ox 10/25/21 14:58 97.5 F L 54 L 22 129/83 100 10/25/21 14:36 98.1 F 53 L 18 123/73 99 10/25/21 13:12 53 L 18 112/81 98 10/25/21 11:42 98 F 50 L 18 147/85 96 Intake and Output 10/25/21 10/25/21 10/25/21 06:59 14:59 22:59 Other: Weight 92 kg 92 kg Results CBC & Chem 7: 10/25/21 12:17 10/25/21 12:17 Thrombosis Risk Factor Assmnt - Choose All That Apply Any of the Below Risk Factors Present?: Yes Each Factor Represents 1 point: Obesity (BMI >25) Other Risk Factors: Yes Each Risk Factor Represents 2 Points: Age 61-74 years Other congenital or acquired thrombophilia - If yes, enter type in comment: No Thrombosis Risk Factor Assessment Total Risk Factor Score: 3 Thrombosis Risk Factor Assessment Level: Moderate Risk
--- NOTE | 2021-10-26 20:39 | P.DS ---
Providers Date of admission: 10/25/21 13:44 Attending physician: Issac Cummings Consults: 10/25/21 13:44 Consult Physician Urgent Consulting Provider: Bassam Zapata Consult Reason/Comments: cp Do you want consulting provider notified?: Yes Primary care physician: Issac Cummings [facility] Course: HISTORY OF PRESENT ILLNESS 66-year-old one of my office patient with past medical history of coronary artery disease post PCI and stent placement first was done in 2010 last one was done 2019 was noticed to have history of atrial fibrillation on oral anticoagulation was also known to have history of chronic migraine, chronic kidney disease, history of hypertension and hyperlipidemia seen cardiology on regular basis and testing are up-to-date. patient is seen in our office about 3 times a year and has been doing well with no major complication. Last echocardiogram done in 2019 showed ejection fraction of 40-45% has not improved since his last angioplasty back 2018. Patient has been doing well till the morning of 10/25/2021 when developed to have significant tightness and pressure in the midsternal area worsening with exertion symptom or associated with mild shortness of breath palpitation no cold sweat and nausea vomiting no GI symptoms. No radiation but his symptom had reminded him of his episode in 2019 when he had his [place] at the time. Patient ended up coming to the emergency department where was seen and evaluated after giving him nitroglycerin his symptoms improved slightly but did not clear completely. Patient has been on anticoagulation was placed on nitro paste and admitted to the hospital will be seeing cardiology CK and troponin 2 be done and plan for possible intervention versus stress test. 10/26: Patient was seen cardiology, he is symptom free at this time, echocardiogram was order if ejection fraction is better or no change from before and there is no sign of wall motion abnormality, patient can be discharged home to see cardiology as an outpatient and plan for intervention as an outpatient. His ejection fraction was 55-60 percentile much better than last one in 2019 and 20. Patient be going home to follow-up with cardiology as an outpatient if continue to have symptoms return to the hospital otherwise patient might still have to go for intervention as an outpatient. REVIEW OF SYSTEMS Constitutional: Reports fever, Reports chills, Reports sweats. No weight change. Reports weakness, Reports fatigue Reports lethargy. Reportsdaytime sleepiness. EENT: No headache. No blurred vision or double vision, no loss of vision. No loss of Hearing, no ringing in the ears, Reports dizziness. No nasal drainage or congestion. No epistaxis. Reports sore throat. Lungs: Reports shortness of breath, Reportscough, no sputum production. No wheezing. Cardiovascular: positive chest pain and angina, no lower extremity edema. No palpitations. No paroxysmal nocturnal dyspnea. No orthopnea. Reports lightheadedness or dizziness. No syncopal episodes. Abdominal: No abdominal pain. No nausea, vomiting. No diarrhea. No constipation. No bloody or tarry stools. No loss of appetite. Genitourinary: No dysuria, increased frequency, urgency. No urinary retention. Musculoskeletal: No myalgias. Reports muscle weakness, no gait dysfunction, no frequent falls. No back pain. No neck pain. Integumentary: No wounds, no lesions. No rash or pruritus. Neurologic: No aphasia. No facial droop. No change in mentation. No head injury. No headache. No paralysis. No paresthesia. Psychiatric: No depression. No anxiety. Endocrine: No abnormal blood sugars. PHYSICAL EXAMINATION Gen: This is a 64-year-old male. His resting in bed and appears comfortable. No acute respiratory distress is noted. HEENT: Head is atraumatic, normocephalic. Pupils equal, round. Sclerae is anicteric. NECK: Supple. No JVD. No lymphadenopathy. No thyromegaly. LUNGS: Clear to auscultation. Diminished in bilateral bases. No intercostal retractions. HEART: Irregular rate and rhythm. No murmur. ABDOMEN: Soft. Bowel sounds are present. No masses. No tenderness. EXTREMITIES: No pedal edema. No calf tenderness. Dorsalis pedis +2 bilaterally. NEUROLOGICAL: Patient is awake, alert and oriented x3. Cranial nerves 2 through 12 are grossly intact. ASSESSMENT AND PLAN 1. acute chest pain and recurrent angina: Symptom improvement with nitroglycerin with known history of coronary artery disease, patient be admitted to the hospital continue anticoagulation, continue nitro, consult cardiology CK with troponin 3 be done and patient might require to go for intervention. 2. History of coronary artery disease. post angioplasty and stent placement last one was in 2019, Continue aspirin 81 mg daily, continue see cardiology continue statin and aspirin. 3. onset atrial fibrillation, paroxysmal atrial fibrillation. remain on Eliquis and metoprolol. 4. Hypertension. Continue lisinopril 10 mg twice daily and Lopressor. 5. cardiomyopathy: his ejection fraction has improved significantly since 2019 up to 55-60% at this point.ll. 6. Hyperlipidemia. Continue Lipitor 80 mg at bedtime. 7. stage II chronic kidney disease: Has been stable his kidney function is back to normal at this point GFR today 69. 8. GI prophylaxis. Pepcid 20 mg twice daily. hospital course: patient was seen cardiology, his CK with troponin 3 was negative, his chest pain has improved significantly, echocardiogram showed that her ejection fraction with no wall motion abnormality at this point. Agree to that patient go home we will adjust his medication start nitroglycerin sublingual as needed and add isosorbide mononitrate 15 mg at nighttime. If recurrent symptom return to the hospital otherwise see cardiology and plan for intervention as an outpatient. Plan - Discharge Summary Discharge Rx Participant: No New Discharge Prescriptions: New Isosorbide Mononitrate ER [Imdur] 15 mg PO DAILY #30 tab Nitroglycerin Sl Tabs [Nitrostat] 0.4 mg SUBLINGUAL Q5M PRN #25 tab PRN Reason: Chest Pain Acetaminophen Tab [Tylenol] 650 mg PO Q6HR PRN tab PRN Reason: Fever And/ Or Pain Continue Aspirin 81 mg PO DAILY #30 chew Atorvastatin [Lipitor] 80 mg PO HS #30 tab Apixaban [Eliquis] 5 mg PO BID #60 tab Zinc Sulfate [Orazinc] 220 mg PO DAILY cap Famotidine [Pepcid] 20 mg PO BID #60 tab Ascorbic Acid [Vitamin C] 1,000 mg PO DAILY tab lisinopriL [Prinivil] 20 mg PO BID Metoprolol Tartrate [Lopressor] 25 mg PO BID Cholecalciferol [Vitamin D3 (25 Mcg = 1000 Iu)] 25 mcg PO DAILY hydroCHLOROthiazide [Hydrodiuril] 25 mg PO DAILY Discharge Medication List Aspirin 81 mg PO DAILY #30 chew 05/19/19 [Rx] Atorvastatin [Lipitor] 80 mg PO HS #30 tab 05/19/19 [Rx] Apixaban [Eliquis] 5 mg PO BID #60 tab 06/04/20 [Rx] Ascorbic Acid [Vitamin C] 1,000 mg PO DAILY tab 06/06/20 [Rx] Famotidine [Pepcid] 20 mg PO BID #60 tab 06/06/20 [Rx] Zinc Sulfate [Orazinc] 220 mg PO DAILY cap 06/06/20 [Rx] Cholecalciferol [Vitamin D3 (25 Mcg = 1000 Iu)] 25 mcg PO DAILY 10/25/21 [History] Metoprolol Tartrate [Lopressor] 25 mg PO BID 10/25/21 [History] hydroCHLOROthiazide [Hydrodiuril] 25 mg PO DAILY 10/25/21 [History] lisinopriL [Prinivil] 20 mg PO BID 10/25/21 [History] Acetaminophen Tab [Tylenol] 650 mg PO Q6HR PRN tab 10/26/21 [Rx] Isosorbide Mononitrate ER [Imdur] 15 mg PO DAILY #30 tab 10/26/21 [Rx] Nitroglycerin Sl Tabs [Nitrostat] 0.4 mg SUBLINGUAL Q5M PRN #25 tab 10/26/21 [Rx] Follow up Appointment(s)/Referral(s): Shira Oswald MD [STAFF PHYSICIAN] - 1 Week (Office will call Pt with appointment ) Issac Cummings MD [Primary Care Provider] - 1-2 days Patient Instructions/Handouts: Chest Pain (DC) Discharge Disposition: HOME SELF-CARE
== END 2021-10-26 12:14 | disposition home or self-care (01) ==
LOC: EC 11:40 → 6NMEDSUR 13:44
PROVIDERS: ADMIT Internal Medicine Geriatric Medicine; ATTEND Internal Medicine Geriatric Medicine
DX: R07.89 Other chest pain (principal); I25.119 Atherosclerotic heart disease of native coronary artery with unspecified angina pectoris; I48.0 Paroxysmal atrial fibrillation; I12.9 Hypertensive chronic kidney disease with stage 1 through stage 4 chronic kidney disease, or unspecified chronic kidney disease; N18.2 Chronic kidney disease, stage 2 (mild); I25.5 Ischemic cardiomyopathy; E78.5 Hyperlipidemia, unspecified; R00.1 Bradycardia, unspecified; G43.909 Migraine, unspecified, not intractable, without status migrainosus; R06.02 Shortness of breath; I25.2 Old myocardial infarction; R00.0 Tachycardia, unspecified; E66.9 Obesity, unspecified; Z68.26 Body mass index [BMI] 26.0-26.9, adult; Z87.19 Personal history of other diseases of the digestive system; Z87.891 Personal history of nicotine dependence; Z87.01 Personal history of pneumonia (recurrent); Z95.5 Presence of coronary angioplasty implant and graft; Z79.82 Long term (current) use of aspirin; Z79.899 Other long term (current) drug therapy; Z79.02 Long term (current) use of antithrombotics/antiplatelets; Z79.01 Long term (current) use of anticoagulants; Z83.3 Family history of diabetes mellitus; Z80.0 Family history of malignant neoplasm of digestive organs; Z82.49 Family history of ischemic heart disease and other diseases of the circulatory system
CPT/HCPCS: 99285; 36415; 93005; 93306; 80061; 80053; 83735; 84484; 85025; 85610; 85730; 71046; G0378 ×2

== ENCOUNTER 2021-10-31 09:42 | Day surgery (SDC) | payer BC ==
[~2021-10-31 09:42] MED LIST changes: +ALPRAZolam 0.25 MG TAB PO PRN; +ALPRAZolam 0.5 MG TAB PO PRN; +ASPIRIN 325 MG TAB PO STA; +ATORVASTATIN 80 MG TAB PO STA; +HEPARIN SODIUM,PORCINE 10,000 UNIT in SODIUM CHLORIDE 0.9% 1,000 ML IRRIGATION PRN; +HEPARIN SODIUM,PORCINE 2,500 UNIT in SODIUM CHLORIDE 0.9% 250 ML IRRIGATION PRN; -LACTATED RINGERS 1,000 ML IV SCH; +NITROGLYCERIN SL TABS 0.4 MG TAB SUBLINGUAL PRN
[2021-10-31] MEDS ORDERED: SODIUM CHLORIDE 0.9% 1,000 ML IV ONE (10:15)
[2021-10-31] MEDS ORDERED: VERAPAMIL 2.5 MG/ML 2 ML AMP ONE (11:22)
[2021-10-31] MEDS ORDERED: HEPARIN SODIUM 1,000 UN/ML (10ML VL) ONE (11:22)
[2021-10-31] MEDS ORDERED: fentaNYL (PF) 50 MCG/ML 2 ML AMP ONE (11:23)
[2021-10-31] MEDS ORDERED: fentaNYL (PF) 50 MCG/ML 2 ML AMP IV ONE (11:27)
[2021-10-31] MEDS ORDERED: LIDOCAINE 1% INJ 10MG/ML (20 ML MDV) SQ ONE (11:57)
[2021-10-31] MEDS ORDERED: VERAPAMIL SYRINGE (5 MG/10 ML) INTRAARTER ONE (11:58)
[2021-10-31] MEDS: HEPARIN SODIUM 1,000 UN/ML (10ML VL) IV ONE ×2 (12:02→12:21)
[2021-10-31] MEDS ORDERED: CLOPIDOGREL 75 MG TAB ONE (12:20)
[2021-10-31] MEDS ORDERED: CLOPIDOGREL 75 MG TAB PO ONE (12:22)
[2021-10-31] MEDS ORDERED: IOPAMIDOL-370 125ML BTL INJ ONE (12:34)
[2021-10-31] MEDS ORDERED: NITROGLYCERIN SL TABS 0.4 MG TAB SUBLINGUAL PRN (12:46)
[2021-10-31] MEDS ORDERED: RX INFO: IV CONTRAST WAS GIVEN 1 EACH MISC MISCELLANE PRN (12:46)
[2021-10-31] MEDS ORDERED: MAG HYDROX/AL HYDROX/SIMETH 30 ML CUP PO PRN (12:46)
[2021-10-31] MEDS ORDERED: ZOLPIDEM 5 MG TAB PO PRN (12:46)
[2021-10-31] MEDS ORDERED: ATROPINE SULFATE 0.1 MG/ML 10ML SYRINGE IV PRN (12:46)
--- NOTE | 2021-10-31 12:53 | P.CARDCATH ---
Date of Procedure: 10/31/21 Description of Procedure: Cardiac Catheterization: The patient is a 66-year-old male with a known history of CAD, multivessel stenting who was admitted to the hospital recently with symptoms of chest discomfort and no evidence of enzymatic changes. He continues to have discomfort following his discharge reminding him of the way he felt prior to his PCI. Recommendations were made regarding cardiac catheterization, the risks and the complications were discussed with the patient who is in full understanding and agreement. Procedure Description: Patient was brought to laborer pipeline in fasting semi-sedated state after receiving Fentanyl and Benadryl achieiving moderate conscious sedated state. Using Xyloca ine Anesthesia and Seldinger technique, a 6-Belgian sheath was introduced in the right radial artery . Subsequently, selective coronary angiography performed using a 5-Belgian 3.5 bend Salvatore catheter. Multiple views of the coronary artery including hemiaxial views were obtained. The 5-Belgian Pigtail catheter was used to cross the aortic valve and LVEDP was calculated. Following that, catheter were removed. There was no immediate complication. Images were reviewed. Of note, the patient received a total of 5000 units of intravenous heparin as well as intra-arterial verapamil. There was no immediate complications. Findings: Left main: This is a large size vessel, bifurcating into LAD and left circumflex, the left main has no high-grade stenosis LAD: This is a large-size vessel, reaching to the apex with a wraparound apex segment. Giving rise to a small diagonal branch. The proximal LAD has an eccentric 60-70% stenosis Left circumflex: This is a nondominant vessel, large in caliber giving rise to 2 obtuse marginal branch. The stented segment in the left circumflex has mild disease with no high-grade stenosis. RCA: This is a dominant vessel, large in caliber. The stented segment in the RCA and the PLV are patent with no significant in-stent restenosis, the vessel has mild diffuse intimal of 20-30% Left Ventriculogram: Was not performed Hemodynamics: There was no gradient across the aortic valve, LVEDP 15-18 mmHg Conclusion: 1. Patent stent in the left circumflex and the RCA with mild disease 2. Borderline significant disease in the proximal LAD 3. Right dominance Recommendations: In view of the anatomy have recommended to proceed with IFR evaluation of the LAD and depending on that further recommendations will be made. Recommendations were discussed with the patient who was in full understanding and agreement.
--- NOTE | 2021-10-31 12:57 | P.CARDCATH ---
Date of Procedure: 10/31/21 Description of Procedure: PERCUTANEOUS TRANSLUMINAL CORONARY ANGIOPLASTY CLINICAL INFORMATION: The patient is a 66-year-old male who presented with symptoms of chest discomfort, his cardiac catheterization showed patent stent to the RCA and left circumflex with borderline significant lesion in the proximal LAD. Recommendations were made regarding IFR measurement and further intervention as dictated. The recommendations were discussed with the patient and he was in full understanding and agreement. PROCEDURE: A 6 Italian 3.75 EBU guiding catheter was introduced into the system. After cannulating the left main, a Doppler wire Omni was advanced across the lesion and positioned distally. IFR was measured at 0.85. Following that a 3.5 x 15 Xience ilsa point stent was deployed. It was dilated at 16. After the last inflation, after appropriate wait, the balloon was withdrawn back into the guid ing catheter. IFR was remeasured at 0.94 Images were obtained and repeated. Those images reveal stable successful stenting. At that point, the guiding catheter, the balloon, and guidewire were removed. The sheath was removed. Hemostasis was obtained with diploma and the TR band. There were no immediate complications. The patient was returned to the room in stable condition. Of note, the patient received additional 2000 units of heparin as well as Plavix. The patient had chest discomfort that resolved the end of the procedure, his ACT was followed RESULTS: Successful stenting of the proximal LAD with reduction of stenosis from 60-70 % to 0 %. RECOMMENDATIONS: Patient will continue work antiplatelets treatment with aspirin and Plavix for at least 6 months, his aspirin will be stopped in few weeks and he will continue anticoagulation. The findings and the recommendations were discussed with the patient and his family, they are in full understanding and agreement. Duration of sedation 41 minutes.
[2021-10-31] MEDS ORDERED: SODIUM CHLORIDE 0.9% 1,000 ML in EMPTY BAG 1 BAG IV SCH (13:00)
[2021-10-31] MEDS: SODIUM CHLORIDE 0.9% 1,000 ML in EMPTY BAG 1 BAG IV SCH ×2 (15:09→15:10)
[2021-10-31] MEDS: FAMOTIDINE 20 MG TAB PO SCH (20:27)
[2021-10-31] MEDS: METOPROLOL TARTRATE 25 MG TAB PO SCH (20:27)
[2021-10-31] MEDS: lisinopriL 20 MG TAB PO SCH (20:27)
[2021-10-31] MEDS ORDERED: ATORVASTATIN 80 MG TAB PO SCH (21:00)
[2021-11-01] MEDS: SODIUM CHLORIDE 0.9% 1,000 ML in EMPTY BAG 1 BAG IV SCH (04:01)
--- NOTE | 2021-11-01 07:21 | P.PN ---
Subjective Progress Note Date: 11/01/21 PROGRESS NOTE The patient is a 66-year-old male with a known history of coronary disease who presented with symptoms of progressive chest discomfort, underwent cardiac catheterization was found to have patent stent in the left circumflex and right coronary artery with borderline lesion in the LAD was positive IFR, he underwent stenting of that vessel. He is feeling better today, he denies any further chest discomfort. His breathing is stable. He denies any dizziness or palpitation. He continued on aspirin, Plavix, metoprolol, lisinopril, atorvastatin PHYSICAL EXAMINATION: Blood pressure 108/70 heart rate 60 LUNGS: Clear to auscultation HEART: Regular rate and rhythm, S1, S2. No S3. No systolic murmur ABDOMEN: Soft, nontender, no organomegaly EXTREMETIES: No edema, right radial pulse intact LAB: EKG sinus mechanism with no acute changes IMPRESSION: 1. Status post stenting of the LAD 2. Patent stent of the left circumflex and RCA 3. Hypertension 4. Hyperlipidemia PLAN: The patient will be discharged home today, anticoagulation will be resumed. He will stop aspirin in one week. He'll be followed next week. The recommendations were discussed with the patient. Objective - Vital Signs Vital signs: Vital Signs Temp 97.5 F L 11/01/21 02:12 Pulse 61 11/01/21 02:12 Resp 16 11/01/21 02:12 BP 108/72 11/01/21 02:12 Pulse Ox 97 11/01/21 02:12 Intake & Output 10/31/21 11/01/21 11/01/21 18:59 06:59 18:59 Intake Total 880 Balance 880 Weight 94.1 kg Intake: IV 400 Oral 480 Other: # Voids 1 1
[2021-11-01 07:27] LABS: African American GFR (CKD) 86 (>60 ml/min/1.73 sqM); Anion Gap 8 mmol/L; Blood Urea Nitrogen 23 mg/dL (9-20); Calcium 8.9 mg/dL (8.4-10.2); Carbon Dioxide 22 mmol/L (22-30); Chloride 108 mmol/L (98-107); Glucose 109 mg/dL (74-99); Non-African American GFR(CKD) 75 (>60 ml/min/1.73 sqM); Sodium 138 mmol/L (137-145)
[2021-11-01 08:02] VITALS: BP 116/72; PULSE 47; RESP 18; TEMP 97.7
[2021-11-01] MEDS: lisinopriL 20 MG TAB PO SCH (08:32)
[2021-11-01] MEDS: METOPROLOL TARTRATE 25 MG TAB PO SCH (08:32)
[2021-11-01] MEDS: FAMOTIDINE 20 MG TAB PO SCH (08:32)
[2021-11-01] MEDS ORDERED: ASPIRIN 81 MG PO SCH (09:00)
[2021-11-01] MEDS ORDERED: CLOPIDOGREL 75 MG TAB PO SCH (09:00)
== END 2021-11-01 08:56 | disposition home or self-care (01) ==
LOC: CATHCVL 09:42 → 6NMEDSUR 12:36 → CATHCVL 11-01 08:56
PROVIDERS: ATTEND Internal Medicine Interventional Cardiology
DX: I25.10 Atherosclerotic heart disease of native coronary artery without angina pectoris (principal); E78.5 Hyperlipidemia, unspecified; I10 Essential (primary) hypertension; Z95.5 Presence of coronary angioplasty implant and graft; Z20.822 Contact with and (suspected) exposure to COVID-19
CPT/HCPCS: 93458; 93571; 80048; 87635; C9600; C1887; C1894; C1769 ×2; C1874; J2001; J3010; J1644; Q9967

== ENCOUNTER → 2022-04-16 | Outpatient (CLI) | payer BC ==
[2022-04-16 10:33] LABS: Basophils # (A) 0.1 k/uL (0-0.2); Basophils % (A) 1 %; Eosinophils # (A) 0.2 k/uL (0-0.7); Eosinophils % (A) 3 %; HCT 41.3 % (39.0-53.0); HGB 15.1 gm/dL (13.0-17.5); Lymphocytes # (A) 1.4 k/uL (1.0-4.8); Lymphocytes % (A) 23 %; MCH 33.9 pg (25.0-35.0); MCHC 36.5 g/dL (31.0-37.0); MCV 92.9 fL (80.0-100.0); Mean Platelet Volume 8.9; Monocytes # (A) 0.4 k/uL (0-1.0); Monocytes % (A) 7 %; Neutrophils # (A) 3.9 k/uL (1.3-7.7); Neutrophils % (A) 64 %; Platelet Count 145 k/uL (150-450); RBC 4.45 m/uL (4.30-5.90); RDW 12.3 % (11.5-15.5); WBC 6.1 k/uL (3.8-10.6)
[2022-04-16 10:47] LABS: Uric Acid 6.9 mg/dL (3.5-8.5)
[2022-04-16 12:41] LABS: Erythrocyte Sedimentation Rate 4 mm/hr (0-15)
[2022-04-16 15:30] LABS: Rheumatoid Factor, Qnt <10 IU/mL (0-15)
== END | disposition home or self-care (01) ==
LOC: LABWHC1 09:36
PROVIDERS: ATTEND Podiatrist Foot & Ankle Surgery
DX: Z00.00 Encounter for general adult medical examination without abnormal findings (principal); M10.9 Gout, unspecified; M19.90 Unspecified osteoarthritis, unspecified site
CPT/HCPCS: 36415; 84550; 85025; 85652; 86431

== ENCOUNTER 2023-05-10 10:49 | Inpatient (IN) | payer BC, MEDICARE ==
[2023-05-10] MEDS ORDERED: SODIUM CHLORIDE 0.9% 1,000 ML IV STA (11:05)
[2023-05-10] MEDS ORDERED: ASPIRIN 81 MG PO STA (11:05)
--- NOTE | 2023-05-10 11:11 | ED ---
General Adult HPI - General Chief complaint: Chest Pain Stated complaint: Chest pains Time Seen by Provider: 05/10/23 10:50 Source: patient, RN notes reviewed, old records reviewed Mode of arrival: wheelchair Limitations: no limitations - History of Present Illness Initial comments: Patient is a 67-year-old male with past medical history remarkable for CAD with multiple cardiac stents, A. fib, hypertension, hyperlipidemia on eliquis who presents emergency Department complaining of chest pressure sensation. States it started this morning approximately 30 minutes prior to arrival while at [employer]. 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 Similar to prior episodes of chest pain that he had that require nonemergent cardiac caths with stent placement. Presents for further evaluation at this time. Follows with Dr. Oswald of cardiology. Endorses the chest pressure which is approximately 6 or 7 out of 10 at this time and is unchanged earlier. Mild lightheadedness as well. Denies any significant nausea or vomiting. Denies any significant diaphoresis. Denies any radiation of the chest pressure which he states is substernal. Does not radiate to either arm. No other acute complaints at this time. No recent sick contacts or other symptoms. Presents for further evaluation. Did not have his nitroglycerin tablets and did not attempt to take them at [employer]. - Related Data Home Medications Medication Instructions Recorded Confirmed hydroCHLOROthiazide [Hydrodiuril] 25 mg PO DAILY 10/25/21 05/10/23 lisinopriL [Prinivil] 20 mg PO BID 10/25/21 05/10/23 Cholecalciferol [Vitamin D3 (125 125 mcg PO DAILY 05/10/23 05/10/23 Mcg = 5000 Iu)] Febuxostat [Uloric] 40 mg PO DAILY 05/10/23 05/10/23 Metoprolol Tartrate [Lopressor] 12.5 mg PO BID 05/10/23 05/10/23 Sennosides/Docusate Sodium 1 tab PO DAILY 05/10/23 05/10/23 [Senna-S 8.6-50 mg Tablet] Zinc Gluconate [Zinc] 50 mg PO DAILY 05/10/23 05/10/23 traZODone HCL [Desyrel] 50 mg PO HS PRN 05/10/23 05/10/23 Previous Rx's Medication Instructions Recorded Aspirin 81 mg PO DAILY #30 chew 05/19/19 Atorvastatin [Lipitor] 80 mg PO HS #30 tab 05/19/19 Apixaban [Eliquis] 5 mg PO BID #60 tab 06/04/20 Ascorbic Acid [Vitamin C] 1,000 mg PO DAILY tab 06/06/20 Famotidine [Pepcid] 20 mg PO BID #60 tab 06/06/20 Nitroglycerin Sl Tabs [Nitrostat] 0.4 mg SUBLINGUAL Q5M PRN #25 tab 10/26/21 Allergies Allergy/AdvReac Type Severity Reaction Status Date / Time No Known Allergies Allergy Verified 05/10/23 13:16 Review of Systems ROS Statement: Those systems with pertinent positive or pertinent negative responses have been documented in the HPI. Review of Systems: CONST: Denies fever EYES: Denies blurry vision ENT: Denies nasal congestion C/V: Endorses chest pressure RESP: Denies shortness of breath GI: Denies abdominal pain : Denies dysuria SKIN: Denies rash. MSK: Denies joint pain. NEURO: Denies headache ROS Other: All systems not noted in ROS Statement are negative. Past Medical History Past Medical History: Atrial Fibrillation, Coronary Artery Disease (CAD), Hyperlipidemia, Hypertension, Pneumonia Additional Past Medical History / Comment(s): Benign colon polyps in past, past migraines. History of Any Multi-Drug Resistant Organisms: None Reported Past Surgical History: Heart Catheterization, Heart Catheterization With Stent, Orthopedic Surgery Additional Past Surgical History / Comment(s): PCI/stent X3 2010, PCI/stents 2019 x1, right arm tendon repiar Past Anesthesia/Blood Transfusion Reactions: No Reported Reaction Date of Last Stent Placement:: 05/2019 Past Psychological History: No Psychological Hx Reported Smoking Status: Former smoker Past Alcohol Use History: Occasional Past Drug Use History: None Reported - Past Family History Father Family Medical History: Cancer, Hyperlipidemia, Hypertension Additional Family Medical History / Comment(s): COLON Mother Family Medical History: Congestive Heart Failure (CHF), Coronary Artery Disease (CAD), Diabetes Mellitus, Hyperlipidemia, Hypertension Additional Family Medical History / Comment(s): 4 vessel CABG General Exam - General Exam Comments Initial Comments: General: Appears in no acute distress. HEAD: Normal with no signs of head trauma. EYES: PERRLA, EOMI, conjunctiva normal, no discharge. ENT: Hearing grossly intact, normal oropharynx. RESPIRATORY: Clear breath sounds bilaterally. No wheezes, rales, or rhonchi. C/V: Regular rate and rhythm. S1 and S2 auscultated, no edema, peripheral pulses 2+ and intact throughout ABD: Abd is soft, nontender, nondistended EXT: Normal range of motion, no obvious deformity SKIN: No rashes or lesions observed on exposed skin. NEURO: Alert and oriented 4. Limitations: no limitations Course Vital Signs 05/10/23 05/10/23 10:51 12:12 Temperature 97.6 F Pulse Rate 59 L 86 Respiratory 18 16 Rate Blood Pressure 140/79 127/86 O2 Sat by Pulse 100 Oximetry Medical Decision Making - Medical Decision Making Was pt. sent in by a medical professional or institution (, PA, SUPPLIER QUALITY SPECIALIST, urgent care, hospital, or fci...) When possible be specific @ -No Did you speak to anyone other than the patient for history (EMS, parent, family, police, friend...)? What history was obtained from this source @ -No Did you review nursing and triage notes (agree or disagree)? Why? @ -I reviewed and agree with nursing and triage notes Were old charts reviewed (outside hosp., previous admission, EMS record, old EKG, old radiological studies, urgent care reports/EKG's, fci records)? Report findings @ -Old charts reviewed Differential Diagnosis (chest pain, altered mental status, abdominal pain women, abdominal pain men, vaginal bleeding, weakness, fever, dyspnea, syncope, headache, dizziness, GI bleed, back pain, seizure, CVA, palpatations, mental health, musculoskeletal)? @ -Differential Chest Pain: Stable Angina, Unstable Angina, STEMI, NSTEMI Aortic Dissection, Pneumothorax, Musculoskeletal, Esophageal Spasm GERD, Cholecystitis, Pancreatitis, Zoster, this is not meant to be an all-inclusive list. EKG interpreted by me (3pts min.). @ -As above X-rays interpreted by me (1pt min.). @ -Chest x-ray reveals no obvious acute cardio primary process.Chest x-ray shows chronic changes but no obvious acute findings.. Compared with prior chest x-rays. CT interpreted by me (1pt min.). @ -None done U/S interpreted by me (1pt. min.). @ -None done What testing was considered but not performed or refused? (CT, X-rays, U/S, labs)? Why? @ -None What meds were considered but not given or refused? Why? @ -None Did you discuss the management of the patient with other professionals (professionals i.e. , PA, SUPPLIER QUALITY SPECIALIST, lab, RT, psych nurse, social media job titles, automotive parts clerk, teacher, surveillance sensor officer, nurse outreach case manager)? Give summary @ -Discussed the case with Dr. mcknight who accepted the admission. Was smoking cessation discussed for >3mins.? @ -No Was critical care preformed (if so, how long)? @ -yes, 35 min Were there social determinants of health that impacted care today? How? (Homelessness, low income, unemployed, alcoholism, drug addiction, transportation, low edu. Level, literacy, decrease access to med. care, [facility], rehab)? @ -No Was there de-escalation of care discussed even if they declined (Discuss DNR or withdrawal of care, Hospice)? DNR status @ -No What co-morbidities impacted this encounter? (DM, HTN, Smoking, COPD, CAD, Cancer, CVA, ARF, Chemo, Hep., AIDS, mental health diagnosis, sleep apnea, morbid obesity)? @ -None Was patient admitted / discharged? Hospital course, mention meds given and route, prescriptions, significant lab abnormalities, going to OR and other pertinent info. @ -Based on the patient's presentation and physical exam, I'm concerned for possible cardiac etiology for his current symptoms. We will obtain cardiac workup. Patient will be given 324 mg of aspirin as well as sublingual nitrogly cerin tablets. He'll be started on 1 L fluid bolus. Patient was in agreement this plan. Vital signs within acceptable limits. Discussed with the patient that he will be admitted. EKG showed no signs of acute ischemia. Similar to previous EKGs from October 2021.Chest x-ray shows no obvious acute cardio 100 process. Patient's workup remarkable for undetectable troponin. Remainder of labs within acceptable limits. On reevaluation, patient's chest pain free following 3 nitroglycerin tablets. I did perform frequent re-evaluations following each nitroglycerin tablets which showed step-lovelace decrease in pain. We discussed his workup. Nitrol paste will be applied to his chest, and we'll empirically place the patient heparin over concern for ACS the patient. He was in agreement this plan. Cardiology will be consulted. Patient will be admitted. I spoke with Dr. mcknight who accepted the admission. We will trend the troponin. Undiagnosed new problem with uncertain prognosis? @ -No Drug Therapy requiring intensive monitoring for toxicity (Heparin, Nitro, Insulin, Cardizem)? @ -Heparin Were any procedures done? @ -No Diagnosis/symptom? @ -Chest pain, history of CAD with multiple stents Acute, or Chronic, or Acute on Chronic? @ -Acute Uncomplicated (without systemic symptoms) or Complicated (systemic symptoms)? @ -Complicated Side effects of treatment? @ -none Exacerbation, Progression, or Severe Exacerbation] @ -no Poses a threat to life or bodily function? @ -Yes . - Lab Data Result diagrams: 05/10/23 11:22 05/10/23 11:22 Lab Results 05/10/23 05/10/23 05/10/23 Range/Units 11:22 11:22 11:22 WBC 7.8 (3.8-10.6) k/uL RBC 4.69 (4.30-5.90) m/uL Hgb 16.3 (13.0-17.5) gm/dL Hct 44.8 (39.0-53.0) % MCV 95.4 (80.0-100.0) fL MCH 34.7 (25.0-35.0) pg MCHC 36.4 (31.0-37.0) g/dL RDW 12.5 (11.5-15.5) % Plt Count 153 (150-450) k/uL MPV 9.1 Neutrophils % 66 % Lymphocytes % 24 % Monocytes % 7 % Eosinophils % 1 % Basophils % 0 % Neutrophils # 5.1 (1.3-7.7) k/uL Lymphocytes # 1.9 (1.0-4.8) k/uL Monocytes # 0.6 (0-1.0) k/uL Eosinophils # 0.1 (0-0.7) k/uL Basophils # 0.0 (0-0.2) k/uL PT 11.9 (10.0-12.5) sec INR 1.1 (<1.2) APTT 27.4 (22.0-30.0) sec Sodium 141 (137-145) mmol/L Potassium 3.9 (3.5-5.1) mmol/L Chloride 106 (98-107) mmol/L Carbon Dioxide 25 (22-30) mmol/L Anion Gap 10 mmol/L BUN 25 H (9-20) mg/dL Creatinine 1.15 (0.66-1.25) mg/dL Est GFR (CKD-EPI)AfAm 75 (>60 ml/min/1.73 sqM) Est GFR (CKD-EPI)NonAf 65 (>60 ml/min/1.73 sqM) Glucose 88 (74-99) mg/dL Calcium 9.7 (8.4-10.2) mg/dL Magnesium 1.9 (1.6-2.3) mg/dL Total Bilirubin 0.9 (0.2-1.3) mg/dL AST 26 (17-59) U/L ALT 33 (4-49) U/L Alkaline Phosphatase 83 (38-126) U/L Troponin I (0.000-0.034) ng/mL Total Protein 6.7 (6.3-8.2) g/dL Albumin 4.5 (3.5-5.0) g/dL 05/10/23 Range/Units 11:22 WBC (3.8-10.6) k/uL RBC (4.30-5.90) m/uL Hgb (13.0-17.5) gm/dL Hct (39.0-53.0) % MCV (80.0-100.0) fL MCH (25.0-35.0) pg MCHC (31.0-37.0) g/dL RDW (11.5-15.5) % Plt Count (150-450) k/uL MPV Neutrophils % % Lymphocytes % % Monocytes % % Eosinophils % % Basophils % % Neutrophils # (1.3-7.7) k/uL Lymphocytes # (1.0-4.8) k/uL Monocytes # (0-1.0) k/uL Eosinophils # (0-0.7) k/uL Basophils # (0-0.2) k/uL PT (10.0-12.5) sec INR (<1.2) APTT (22.0-30.0) sec Sodium (137-145) mmol/L Potassium (3.5-5.1) mmol/L Chloride (98-107) mmol/L Carbon Dioxide (22-30) mmol/L Anion Gap mmol/L BUN (9-20) mg/dL Creatinine (0.66-1.25) mg/dL Est GFR (CKD-EPI)AfAm (>60 ml/min/1.73 sqM) Est GFR (CKD-EPI)NonAf (>60 ml/min/1.73 sqM) Glucose (74-99) mg/dL Calcium (8.4-10.2) mg/dL Magnesium (1.6-2.3) mg/dL Total Bilirubin (0.2-1.3) mg/dL AST (17-59) U/L ALT (4-49) U/L Alkaline Phosphatase (38-126) U/L Troponin I <0.012 (0.000-0.034) ng/mL Total Protein (6.3-8.2) g/dL Albumin (3.5-5.0) g/dL - EKG Data -: EKG Interpreted by Me EKG Comments: 12-lead Electrocardiogram Interpretation Note EKG was reviewed and interpreted by myself. 12-lead ECG performed at 1103 is interpreted by me as revealing sinus bradycardia with PVC at a rate of 57 beats per minute. [place] is normal. [place] interval is 175 ms, QRS duration is 93 ms, QTc is 373 ms.. There were no acute ST or T wave abnormalities to suggest myocardial ischemia or injury. R wave progression across the precordium was satisfactory. Patient has T wave inversion in III, as well as T-wave inversion in V3. These are chronic seen on previous EKGs from October 2021. By my interpretation this EKG is non-diagnostic for acute ischemia. Critical Care Time Critical Care Time: Yes Total Critical Care Time: 35 Disposition Clinical Impression: Chest pain Disposition: ADMITTED IP TO THIS HOSP Condition: Stable Is patient prescribed a controlled substance at d/c from ED?: No Time of Disposition: 12:15
[2023-05-10] MEDS: NITROGLYCERIN SL TABS 0.4 MG TAB SUBLINGUAL PRN ×3 (11:20→12:06)
[2023-05-10 11:34] LABS: Basophils % (A) 0 %; Eosinophils # (A) 0.1 k/uL (0-0.7); Eosinophils % (A) 1 %; HCT 44.8 % (39.0-53.0); HGB 16.3 gm/dL (13.0-17.5); Lymphocytes # (A) 1.9 k/uL (1.0-4.8); Lymphocytes % (A) 24 %; MCH 34.7 pg (25.0-35.0); MCHC 36.4 g/dL (31.0-37.0); MCV 95.4 fL (80.0-100.0); Mean Platelet Volume 9.1; Monocytes # (A) 0.6 k/uL (0-1.0); Monocytes % (A) 7 %; Neutrophils # (A) 5.1 k/uL (1.3-7.7); Neutrophils % (A) 66 %; Platelet Count 153 k/uL (150-450); RBC 4.69 m/uL (4.30-5.90); RDW 12.5 % (11.5-15.5); WBC 7.8 k/uL (3.8-10.6)
[2023-05-10 11:43] LABS: INR 1.1 (<1.2); Partial Thromboplastin Time 27.4 sec (22.0-30.0); Prothrombin Time 11.9 sec (10.0-12.5)
[2023-05-10 12:05] LABS: ALT 33 U/L (4-49); AST 26 U/L (17-59); African American GFR (CKD) 75 (>60 ml/min/1.73 sqM); Albumin 4.5 g/dL (3.5-5.0); Alkaline Phosphatase 83 U/L (38-126); Anion Gap 10 mmol/L; Blood Urea Nitrogen 25 mg/dL (9-20); Calcium 9.7 mg/dL (8.4-10.2); Carbon Dioxide 25 mmol/L (22-30); Chloride 106 mmol/L (98-107); Glucose 88 mg/dL (74-99); Magnesium 1.9 mg/dL (1.6-2.3); Non-African American GFR(CKD) 65 (>60 ml/min/1.73 sqM); Potassium 3.9 mmol/L (3.5-5.1); Sodium 141 mmol/L (137-145); Total Bilirubin 0.9 mg/dL (0.2-1.3); Total Protein 6.7 g/dL (6.3-8.2)
[2023-05-10] MEDS ORDERED: HEPARIN SODIUM 1,000 UN/ML (10ML VL) IV ONE (12:20)
[2023-05-10] MEDS ORDERED: HEPARIN SODIUM 1,000 UN/ML (10ML VL) IV PRN (12:20)
[2023-05-10] MEDS ORDERED: ONDANSETRON 4 MG/2 ML VIAL IVP PRN (12:27)
[2023-05-10] MEDS ORDERED: NALOXONE 0.4 MG/ML 1 ML VIAL IV PRN (12:27)
[2023-05-10] MEDS: HEPARIN SOD,PORK IN 0.45% NACL 25,000 UNIT in 0.45% NACL 1 250ML.BAG IV SCH (13:07)
--- NOTE | 2023-05-10 13:38 | P.HPIM ---
History of Present Illness This is a pleasant 67 years old male with past medical history of Atrial Fibrillation, Coronary Artery Disease status post stent, Hyperlipidemia, Hypertension, Patient presents because of chest pain that started this morning half hour before coming to the hospital, central nonradiating about 7/10 in severity [place] like pressure with no sputum factors and partially improved with sublingual nitroglycerin. Patient denies dyspnea or coughing. He had no weakness numbness or headache dizziness. Patient denies smoking alcohol or illicit drugs Review of Systems Review of systems CONSTITUTIONAL: No fever, no malaise, no fatigue. HEENT: No recent visual problems or hearing problems. Denied any sore throat. CARDIOVASCULAR: No orthopnea, PND, no palpitations, no syncope. PULMONARY: No shortness of breath, no cough, no hemoptysis. GASTROINTESTINAL: No diarrhea, no nausea, no vomiting, no abdominal pain. Normoactive bowel sounds. NEUROLOGICAL: No headaches, no weakness, no numbness. HEMATOLOGICAL: Denies any bleeding or petechiae. GENITOURINARY: Denies any burning micturition, frequency, or urgency. MUSCULOSKELETAL/RHEUMATOLOGICAL: Denies any joint pain, swelling, or any muscle pain. ENDOCRINE: Denies any polyuria or polydipsia. Past Medical History Past Medical History: Atrial Fibrillation, Coronary Artery Disease (CAD), Hyperlipidemia, Hypertension, Pneumonia Additional Past Medical History / Comment(s): Benign colon polyps in past, past migraines. History of Any Multi-Drug Resistant Organisms: None Reported Past Surgical History: Heart Catheterization, Heart Catheterization With Stent, Orthopedic Surgery Additional Past Surgical History / Comment(s): PCI/stent X3 2011, PCI/stents 2019 x1, right arm tendon repiar Past Anesthesia/Blood Transfusion Reactions: No Reported Reaction Date of Last Stent Placement:: 05/2019 Past Psychological History: No Psychological Hx Reported Smoking Status: Former smoker Past Alcohol Use History: Occasional Past Drug Use History: None Reported - Past Family History Father Family Medical History: Cancer, Hyperlipidemia, Hypertension Additional Family Medical History / Comment(s): COLON Mother Family Medical History: Congestive Heart Failure (CHF), Coronary Artery Disease (CAD), Diabetes Mellitus, Hyperlipidemia, Hypertension Additional Family Medical History / Comment(s): 4 vessel CABG Medications and Allergies Home Medications Medication Instructions Recorded Confirmed Type Aspirin 81 mg PO DAILY #30 chew 05/19/19 05/10/23 Rx Atorvastatin [Lipitor] 80 mg PO HS #30 tab 05/19/19 05/10/23 Rx Apixaban [Eliquis] 5 mg PO BID #60 tab 06/04/20 05/10/23 Rx Ascorbic Acid [Vitamin C] 1,000 mg PO DAILY tab 06/06/20 05/10/23 Rx Famotidine [Pepcid] 20 mg PO BID #60 tab 06/06/20 05/10/23 Rx hydroCHLOROthiazide [Hydrodiuril] 25 mg PO DAILY 10/25/21 05/10/23 History lisinopriL [Prinivil] 20 mg PO BID 10/25/21 05/10/23 History Nitroglycerin Sl Tabs [Nitrostat] 0.4 mg SUBLINGUAL Q5M PRN #25 tab 10/26/21 05/10/23 Rx Cholecalciferol [Vitamin D3 (125 125 mcg PO DAILY 05/10/23 05/10/23 History Mcg = 5000 Iu)] Febuxostat [Uloric] 40 mg PO DAILY 05/10/23 05/10/23 History Metoprolol Tartrate [Lopressor] 12.5 mg PO BID 05/10/23 05/10/23 History Sennosides/Docusate Sodium 1 tab PO DAILY 05/10/23 05/10/23 History [Senna-S 8.6-50 mg Tablet] Zinc Gluconate [Zinc] 50 mg PO DAILY 05/10/23 05/10/23 History traZODone HCL [Desyrel] 50 mg PO HS PRN 05/10/23 05/10/23 History Allergies Allergy/AdvReac Type Severity Reaction Status Date / Time No Known Allergies Allergy Verified 05/10/23 13:16 Physical Exam Vitals: Vital Signs Temp Pulse Resp BP Pulse Ox 05/10/23 12:12 86 16 127/86 05/10/23 10:51 97.6 F 59 L 18 140/79 100 Intake and Output 05/09/23 05/10/23 05/10/23 22:59 06:59 14:59 Other: Weight 92.986 kg GENERAL: The patient is alert and oriented x3, not in any acute distress. Well developed, well nourished. HEENT: Pupils are round and equally reacting to light. EOMI. No scleral icterus. No conjunctival pallor. Normocephalic, atraumatic. No pharyngeal erythema. No thyromegaly. CARDIOVASCULAR: S1 and S2 present. No murmurs, rubs, or gallops. PULMONARY: Chest is clear to auscultation, no wheezing , no crackles. ABDOMEN: Soft, nontender, nondistended, normoactive bowel sounds. No palpable organomegaly. MUSCULOSKELETAL: No joint swelling or deformity. EXTREMITIES: No cyanosis, clubbing, or pedal edema. NEUROLOGICAL: Gross neurological examination did not reveal any focal deficits. SKIN: No rashes. no petechiae. Results CBC & Chem 7: 05/10/23 11:22 05/10/23 11:22 Labs: Abnormal Lab Results - Last 24 Hours (Table) 05/10/23 Range/Units 11:22 BUN 25 H (9-20) mg/dL Assessment and Plan Assessment: Chest pain, rule out cardiac causes History of coronary artery disease status post stent Hypertension Hyperlipidemia Paroxysmal atrial fibrillation on a blood thinner at home. Plan: Continue with anticoagulation on liquids Continue with aspirin Cardiology consult Labs and medication were reviewed.. Continue same treatment. Continue with symptomatic treatment. Resume home medication. Monitor labs and vitals. DVT and GI prophylaxis. Further recommendations as per clinical course of the patient DVT prophylaxis: Subcutaneous heparin GI Prophylaxis: Pepcid PT/OT: Pending Prognosis is guarded
--- NOTE | 2023-05-10 13:55 | XR ---
EXAMINATION TYPE: XR chest 2V DATE OF EXAM: 05/10/2023 12:34 PM CLINICAL INDICATION:Male, 67 years old with history of Chest Pain; [facility] COMPARISON: Chest radiograph 10/25/2021. TECHNIQUE: XR chest 2V Frontal and lateral views of the chest. FINDINGS: Lungs/Pleura: Hazy airspace opacities noted within the right lower lung. No evidence of pleural effus ion or pneumothorax. Pulmonary vascularity: Unremarkable. Heart/mediastinum: Cardiomediastinal silhouette is unremarkable. Musculoskeletal: No acute osseous pathology. IMPRESSION: Right lower lung airspace disease, may represent underlying infectious/inflammatory process.
[2023-05-10] MEDS ORDERED: traZODone HCL 50 MG TAB PO PRN (14:01)
[2023-05-10] MEDS: NITROGLYCERIN OINT 1 INCH/GM PACKET TOPICAL SCH (16:10)
[2023-05-10] MEDS ORDERED: ATORVASTATIN 80 MG TAB PO SCH (21:00)
[2023-05-10] MEDS: FAMOTIDINE 20 MG TAB PO SCH (21:32)
[2023-05-10] MEDS: lisinopriL 20 MG TAB PO SCH (21:32)
[2023-05-10] MEDS: METOPROLOL TARTRATE 12.5 MG TAB PO SCH (21:34)
[2023-05-11] MEDS: NITROGLYCERIN OINT 1 INCH/GM PACKET TOPICAL SCH ×2 (00:31→08:43)
[2023-05-11] MEDS: ACETAMINOPHEN TAB 325 MG TAB PO PRN ×2 (00:32→08:42)
[2023-05-11 03:49] LABS: Basophils % (A) 0 %; Eosinophils # (A) 0.2 k/uL (0-0.7); Eosinophils % (A) 3 %; HCT 38.9 % (39.0-53.0); Lymphocytes # (A) 1.9 k/uL (1.0-4.8); Lymphocytes % (A) 26 %; MCH 34.3 pg (25.0-35.0); MCV 95.2 fL (80.0-100.0); Mean Platelet Volume 9.9; Monocytes # (A) 0.4 k/uL (0-1.0); Monocytes % (A) 6 %; Neutrophils # (A) 4.5 k/uL (1.3-7.7); Neutrophils % (A) 62 %; Platelet Count 113 k/uL (150-450); RBC 4.09 m/uL (4.30-5.90); WBC 7.3 k/uL (3.8-10.6)
[2023-05-11 04:02] LABS: INR 1.2 (<1.2); Prothrombin Time 12.7 sec (10.0-12.5)
[2023-05-11 06:13] VITALS: TEMP 98.1
[2023-05-11 06:15] LABS: African American GFR (CKD) 77 (>60 ml/min/1.73 sqM); Anion Gap 7 mmol/L; Blood Urea Nitrogen 25 mg/dL (9-20); Calcium 8.9 mg/dL (8.4-10.2); Carbon Dioxide 21 mmol/L (22-30); Chloride 111 mmol/L (98-107); Glucose 104 mg/dL (74-99); Non-African American GFR(CKD) 66 (>60 ml/min/1.73 sqM); Potassium 4.1 mmol/L (3.5-5.1); Sodium 139 mmol/L (137-145)
[2023-05-11] MEDS ORDERED: HEPARIN SODIUM,PORCINE 10,000 UNIT in SODIUM CHLORIDE 0.9% 1,000 ML IRRIGATION PRN (07:00)
[2023-05-11] MEDS: HEPARIN SOD,PORK IN 0.45% NACL 25,000 UNIT in 0.45% NACL 1 250ML.BAG IV SCH (07:00)
[2023-05-11] MEDS ORDERED: HEPARIN SODIUM,PORCINE (1 ML) 2,500 UNIT in SODIUM CHLORIDE 0.9% 250 ML IRRIGATION PRN (07:00)
[2023-05-11] MEDS: METOPROLOL TARTRATE 12.5 MG TAB PO SCH (08:42)
[2023-05-11] MEDS: lisinopriL 20 MG TAB PO SCH (08:42)
[2023-05-11] MEDS: FAMOTIDINE 20 MG TAB PO SCH (08:42)
[2023-05-11] MEDS ORDERED: hydroCHLOROthiazide 25 MG TAB PO SCH (09:00)
[2023-05-11] MEDS ORDERED: ASPIRIN 81 MG PO SCH (09:00)
[2023-05-11] MEDS ORDERED: allopurinoL 100 MG TAB PO SCH (09:00)
[2023-05-11] MEDS ORDERED: SENNOSIDES-DOCUSATE SODIUM 1 EACH TAB PO SCH (09:00)
--- NOTE | 2023-05-11 09:10 | P.PN ---
Subjective This is a pleasant 67 years old male with past medical history of Atrial Fibrillation, Coronary Artery Disease status post stent, Hyperlipidemia, Hy pertension, Patient presents because of chest pain that started this morning half hour before coming to the hospital, central nonradiating about 7/10 in severity [place] like pressure with no sputum factors and partially improved with sublingual nitroglycerin. Patient denies dyspnea or coughing. He had no weakness numbness or headache dizziness. Patient denies smoking alcohol or illicit drugs 05/11/2023 Patient is awake and alert. His chest pain is better. Heparin drip and cartilage team on the case for possible cardiac cath. Also he is on aspirin 81 mg. Pulmonary team were consulted for abnormal chest x-ray of the right lung. Patient is not dyspneic Objective - Vital Signs Vital signs: Vital Signs Temp 98.1 F 05/11/23 04:00 Pulse 53 L 05/11/23 04:00 Resp 16 05/11/23 04:00 BP 158/83 05/11/23 04:00 Pulse Ox 98 05/11/23 04:00 FiO2 Intake & Output 05/10/23 05/11/23 05/11/23 18:59 06:59 18:59 Intake Total 240 178.762 Balance 240 178.762 Weight 92.986 kg Intake: Intake, IV Titration 178.762 Amount Heparin Sod,Pork in 0.45% 178.762 NaCl 25,000 unit In 0.45 % NaCl 1 250ml.bag @ 10. 75 UNITS/KG/HR 9.996 mls/ hr IV .Q24H [facility] Rx#: [id number] Oral 240 Other: Voiding Method Toilet Urinal # Voids 1 1 - Exam GENERAL: The patient is alert and oriented x3, not in any acute distress. Well developed, well nourished. HEENT: Pupils are round and equally reacting to light. EOMI. No scleral icterus. No conjunctival pallor. Normocephalic, atraumatic. No pharyngeal erythema. No thyromegaly. CARDIOVASCULAR: S1 and S2 present. No murmurs, rubs, or gallops. PULMONARY: Chest is clear to auscultation, no wheezing , no crackles. ABDOMEN: Soft, nontender, nondistended, normoactive bowel sounds. No palpable organomegaly. MUSCULOSKELETAL: No joint swelling or deformity. EXTREMITIES: No cyanosis, clubbing, or pedal edema. NEUROLOGICAL: Gross neurological examination did not reveal any focal deficits. SKIN: No rashes. no petechiae. - Labs CBC & Chem 7: 05/11/23 03:31 05/11/23 03:31 Labs: Abnormal Lab Results - Last 24 Hours (Table) 05/10/23 05/10/23 05/11/23 Range/Units 11:22 18:50 03:31 RBC 4.09 L (4.30-5.90) m/uL Hct 38.9 L (39.0-53.0) % Plt Count 113 L (150-450) k/uL PT (10.0-12.5) sec INR (<1.2) APTT 60.2 H (22.0-30.0) sec Chloride (98-107) mmol/L Carbon Dioxide (22-30) mmol/L BUN 25 H (9-20) mg/dL Glucose (74-99) mg/dL 05/11/23 05/11/23 05/11/23 Range/Units 03:31 03:31 03:31 RBC (4.30-5.90) m/uL Hct (39.0-53.0) % Plt Count (150-450) k/uL PT 12.7 H (10.0-12.5) sec INR 1.2 H (<1.2) APTT 57.7 H (22.0-30.0) sec Chloride 111 H (98-107) mmol/L Carbon Dioxide 21 L (22-30) mmol/L BUN 25 H (9-20) mg/dL Glucose 104 H (74-99) mg/dL Assessment and Plan Assessment: Chest pain, possible non-STEMI Airspace disease of the right lung is suspected History of coronary artery disease status post stent Hypertension Hyperlipidemia Paroxysmal atrial fibrillation on a blood thinner at home. Plan: Continue with anticoagulation on heparin drip Continue with aspirin Cardiology consult Pulmonary consult Labs and medication were reviewed.. Continue same treatment. Continue with symptomatic treatment. Resume home medication. Monitor labs and vitals. DVT and GI prophylaxis. Further recommendations as per clinical course of the patient DVT prophylaxis: heparin (eliquis on hold) GI Prophylaxis: Pepcid PT/OT: Pending Prognosis is guarded
[2023-05-11 09:51] VITALS: RESP 18
[2023-05-11] MEDS ORDERED: ALPRAZolam 0.25 MG TAB PO PRN (09:53)
[2023-05-11] MEDS ORDERED: ALPRAZolam 0.5 MG TAB PO PRN (09:53)
[2023-05-11] MEDS ORDERED: NITROGLYCERIN SL TABS 0.4 MG TAB SUBLINGUAL PRN (09:53)
[2023-05-11] MEDS ORDERED: ATORVASTATIN 80 MG TAB PO STA (09:53)
[2023-05-11] MEDS ORDERED: ASPIRIN 81 MG PO STA (09:53)
[2023-05-11] MEDS ORDERED: SODIUM CHLORIDE 0.9% 1,000 ML in EMPTY BAG 1 BAG IV SCH (10:00)
--- NOTE | 2023-05-11 10:58 | P.CRDCN ---
History of Present Illness History of present illness: HISTORY OF PRESENT ILLNESS: This is a 67-year-old male with a past medical history significant for atrial fibrillation, cardiomyopathy, coronary artery disease with previous stenting, hypertension, and hyperlipidemia. Patient follows in the office with Dr. Oswald. We have been asked to see the patient in consultation for chest pain. Patient examined at the bedside. Patient states he just saw Dr. Oswald in the office on Thursday and was feeling well at that time with no symptoms. He reports yesterday morning he was sitting in jehovah's witness around 9:30 when he began to have chest pain. He states that pain was more of a pressure type sensation in the middle of his chest. He also reports feeling some numbness in his fingertips. He also complained of feeling lightheaded. He denied feeling short of breath, diaphoretic, or nauseated. He states his symptoms were very similar to his symptoms that he experienced in October 2021 when he required stenting. He states he will let the pain go on for about an hour and then decided to come to the emergency room. He states that he received 3 nitro in the emergency room with relief of his chest pain. He does report having another episode of chest pain overnight but not to the extent that he experienced on the morning. He is currently on IV heparin. Vital signs are stable. * EKG reveals sinus mechanism nonspecific ST-T wave changes. PVCs. * Chest xray right lower lung airspace disease, may represent underlying infectious/inflammatory process * Laboratory data: WBC 7.3. Hemoglobin 14.0. Platelet count 113. Sodium 139. Potassium 4.1. BUN 25. Creatinine 1.13. Troponin negative 3 * Current home cardiac medications include Eliquis 5 mg twice a day, Lipitor 80 mg at night, metoprolol tartrate 12.5 mg twice a day, hydrochlorothiazide 25 mg daily, aspirin 81 mg daily, lisinopril 20 mg twice a day * Most recent echocardiogram obtained in October 2021 revealed normal EF, trace TR, mild MR * Previous echocardiogram in May 2020 revealed ejection fraction of 42% with mild TR * Cardiac catheterization history: October 2021 with stenting of the proximal LAD. Patent stents to the RCA and left circumflex. REVIEW OF SYSTEMS: At the time of my exam: CONSTITUTIONAL: Denies fever or chills. HEENT: Denies blurred vision, vision changes, or eye pain. Denies hemoptysis CARDIOVASCULAR: Denies chest pain. Denies orthopnea. Denies PND. Denies palpitations RESPIRATORY: Denies shortness of breath. GASTROINTESTINAL: Denies abdominal pain. Denies nausea or vomiting. HEMATOLOGIC: Denies bleeding disorders. GENITOURINARY: Denies any blood in urine. SKIN: Denies pruitis. Denies rash. PHYSICAL EXAM: VITAL SIGNS: Reviewed. GENERAL: Well-developed in no acute distress. HEENT: Head is normocephalic. Pupils are equal, round. Sclerae anicteric. Mucous membranes of the mouth are moist. Neck supple. No JVD or thyromegaly LUNGS: Respirations even and unlabored. Lungs essentially clear to auscultation bilaterally. HEART: Regular rate and rhythm. S1 and S2 heard. ABDOMEN: Soft. Nondistended. Nontender. EXTREMITIES: Normal range of motion. No clubbing or cyanosis. Peripheral pulses intact. No lower extremity edema NEUROLOGIC: Awake and alert. Oriented x 3. ASSESSMENT: Unstable angina Coronary artery disease with previous stenting Paroxysmal atrial fibrillation History of ischemic cardiomyopathy with recovered EF Hypertension Hyperlipidemia PLAN: An acute coronary and has been ruled out Obtain 2-D echo to assess cardiac structure and function Continue IV heparin. Hold Eliquis. Resume home cardiac medications Recommended cardiac catheterization to be performed today with Dr. Oswald Further recommendations pending patient course Nurse practitioner note has been reviewed by physician. Signing provider agrees with the documented findings, assessment, and plan of care. Past Medical History Past Medical History: Atrial Fibrillation, Coronary Artery Disease (CAD), Hyperlipidemia, Hypertension, Pneumonia Additional Past Medical History / Comment(s): Benign colon polyps in past, past migraines. History of Any Multi-Drug Resistant Organisms: None Reported Past Surgical History: Heart Catheterization, Heart Catheterization With Stent, Orthopedic Surgery Additional Past Surgical History / Comment(s): PCI/stent X3 2010, PCI/stents 2018 x1, right arm tendon repiar Past Anesthesia/Blood Transfusion Reactions: No Reported Reaction Date of Last Stent Placement:: 05/2019 Past Psychological History: No Psychological Hx Reported Additional Psychological History / Comment(s): Pt resides with his spouse. He is still working and independent. Smoking Status: Former smoker Past Alcohol Use History: Occasional Additional Past Alcohol Use History / Comment(s): Pt started smoking in 1969 and quit in 1979 Past Drug Use History: None Reported - Past Family History Father Family Medical History: Cancer, Hyperlipidemia, Hypertension Additional Family Medical History / Comment(s): COLON Mother Family Medical History: Congestive Heart Failure (CHF), Coronary Artery Disease (CAD), Diabetes Mellitus, Hyperlipidemia, Hypertension Additional Family Medical History / Comment(s): 4 vessel CABG Medications and Allergies Home Medications Medication Instructions Recorded Confirmed Type Aspirin 81 mg PO DAILY #30 chew 05/19/19 05/10/23 Rx Atorvastatin [Lipitor] 80 mg PO HS #30 tab 05/19/19 05/10/23 Rx Apixaban [Eliquis] 5 mg PO BID #60 tab 06/04/20 05/10/23 Rx Ascorbic Acid [Vitamin C] 1,000 mg PO DAILY tab 06/06/20 05/10/23 Rx Famotidine [Pepcid] 20 mg PO BID #60 tab 06/06/20 05/10/23 Rx hydroCHLOROthiazide [Hydrodiuril] 25 mg PO DAILY 10/25/21 05/10/23 History lisinopriL [Prinivil] 20 mg PO BID 10/25/21 05/10/23 History Nitroglycerin Sl Tabs [Nitrostat] 0.4 mg SUBLINGUAL Q5M PRN #25 tab 10/26/21 05/10/23 Rx Cholecalciferol [Vitamin D3 (125 125 mcg PO DAILY 05/10/23 05/10/23 History Mcg = 5000 Iu)] Febuxostat [Uloric] 40 mg PO DAILY 05/10/23 05/10/23 History Metoprolol Tartrate [Lopressor] 12.5 mg PO BID 05/10/23 05/10/23 History Sennosides/Docusate Sodium 1 tab PO DAILY 05/10/23 05/10/23 History [Senna-S 8.6-50 mg Tablet] Zinc Gluconate [Zinc] 50 mg PO DAILY 05/10/23 05/10/23 History traZODone HCL [Desyrel] 50 mg PO HS PRN 05/10/23 05/10/23 History Allergies Allergy/AdvReac Type Severity Reaction Status Date / Time No Known Allergies Allergy Verified 05/10/23 13:16 Physical Exam Vitals: Vital Signs Temp Pulse Pulse Resp BP BP Pulse Ox 05/11/23 04:00 98.1 F 53 L 16 158/83 98 05/11/23 02:00 47 L 17 05/11/23 00:00 98.2 F 47 L 17 113/66 98 05/10/23 20:00 98.3 F 45 L 18 120/71 97 05/10/23 17:07 54 L 18 05/10/23 15:53 54 L 18 117/74 96 05/10/23 12:12 86 16 127/86 05/10/23 10:51 97.6 F 59 L 18 140/79 100 Intake and Output 05/10/23 05/11/23 05/11/23 22:59 06:59 14:59 Intake Total 240 178.762 Balance 240 178.762 Intake: Intake, IV Titration 178.762 Amount Heparin Sod,Pork in 0.45% 178.762 NaCl 25,000 unit In 0.45 % NaCl 1 250ml.bag @ 10. 75 UNITS/KG/HR 9.996 mls/ hr IV .Q24H [facility] Rx#: [id number] Oral 240 Other: Voiding Method Toilet Toilet Urinal Urinal # Voids 2 1 Weight 92.986 kg Results 05/11/23 03:31 05/11/23 03:31 Cardiac Enzymes 05/10/23 05/10/23 05/10/23 Range/Units 11:22 11:22 14:36 AST 26 (17-59) U/L Troponin I <0.012 <0.012 (0.000-0.034) ng/mL 05/10/23 Range/Units 18:50 AST (17-59) U/L Troponin I <0.012 (0.000-0.034) ng/mL Coagulation 05/10/23 05/10/23 05/11/23 Range/Units 11:22 18:50 03:31 PT 11.9 12.7 H (10.0-12.5) sec APTT 27.4 60.2 H (22.0-30.0) sec 05/11/23 Range/Units 03:31 PT (10.0-12.5) sec APTT 57.7 H (22.0-30.0) sec CBC 05/10/23 05/11/23 Range/Units 11:22 03:31 WBC 7.8 7.3 (3.8-10.6) k/uL RBC 4.69 4.09 L (4.30-5.90) m/uL Hgb 16.3 14.0 (13.0-17.5) gm/dL Hct 44.8 38.9 L (39.0-53.0) % Plt Count 153 113 L (150-450) k/uL Comprehensive Metabolic Panel 05/10/23 05/11/23 Range/Units 11:22 03:31 Sodium 141 139 (137-145) mmol/L Potassium 3.9 4.1 (3.5-5.1) mmol/L Chloride 106 111 H (98-107) mmol/L Carbon Dioxide 25 21 L (22-30) mmol/L BUN 25 H 25 H (9-20) mg/dL Creatinine 1.15 1.13 (0.66-1.25) mg/dL Glucose 88 104 H (74-99) mg/dL Calcium 9.7 8.9 (8.4-10.2) mg/dL AST 26 (17-59) U/L ALT 33 (4-49) U/L Alkaline Phosphatase 83 (38-126) U/L Total Protein 6.7 (6.3-8.2) g/dL Albumin 4.5 (3.5-5.0) g/dL Current Medications Generic Name Dose Route Start Last Admin Trade Name Freq PRN Reason Stop Dose Admin Acetaminophen 650 mg 05/10/23 22:42 05/11/23 00:32 Acetaminophen Tab 325 Mg Tab PO 650 mg Q6HR PRN Administration Fever and/ or Mild Pain Allopurinol 200 mg 05/11/23 09:00 Allopurinol 100 Mg Tab PO DAILY [facility] Aspirin 81 mg 05/11/23 09:00 Aspirin 81 Mg PO DAILY [facility] Atorvastatin Calcium 80 mg 05/10/23 21:00 05/10/23 21:32 Atorvastatin 80 Mg Tab PO 80 mg HS JUANY Administration Famotidine 20 mg 05/10/23 21:00 05/10/23 21:32 Famotidine 20 Mg Tab PO 20 mg BID JUANY Administration Heparin Sodium (Porcine) 0 unit 05/10/23 12:20 Heparin Sodium 1,000 Un/Ml (10ml Vl) IV PER PROTOCOL PRN Low PTT Protocol Hydrochlorothiazide 25 mg 05/11/23 09:00 Hydrochlorothiazide 25 Mg Tab PO DAILY JUANY Heparin Sodium/Sodium Chloride 250 mls @ 9.996 mls/hr 05/10/23 12:30 05/11/23 07:00 25,000 unit/ Sodium Chloride IV 10.75 units/kg/hr .Q24H JUANY 9.996 mls/hr Administration Protocol 10.75 UNITS/KG/HR Lisinopril 20 mg 05/10/23 21:00 05/10/23 21:32 Lisinopril 20 Mg Tab PO 20 mg BID [facility] Administration Metoprolol Tartrate 12.5 mg 05/10/23 21:00 05/10/23 21:34 Metoprolol Tartrate 12.5 Mg Tab PO Not Given BID [facility] Naloxone HCl 0.2 mg 05/10/23 12:27 Naloxone 0.4 Mg/Ml 1 Ml Vial IV Q2M PRN Opioid Reversal Nitroglycerin 0.4 mg 05/10/23 11:05 05/10/23 12:06 Nitroglycerin Sl Tabs 0.4 Mg Tab SUBLINGUAL 0.4 mg Q5M PRN Administration Chest Pain Nitroglycerin 0.5 inch 05/10/23 16:00 05/11/23 00:31 Nitroglycerin Oint 1 Inch/Gm Packet TOPICAL 0.5 inch Q8HR [facility] Administration Ondansetron HCl 4 mg 05/10/23 12:27 Ondansetron 4 Mg/2 Ml Vial IVP Q8HR PRN Nausea And Vomiting Senna/Docusate Sodium 1 each 05/11/23 09:00 Sennosides-Docusate Sodium 1 Each Tab PO DAILY [facility] Trazodone HCl 50 mg 05/10/23 14:01 Trazodone Hcl 50 Mg Tab PO HS PRN sleep Intake and Output 05/10/23 05/11/23 05/11/23 22:59 06:59 14:59 Intake Total 240 178.762 Balance 240 178.762 Intake: Intake, IV Titration 178.762 Amount Heparin Sod,Pork in 0.45% 178.762 NaCl 25,000 unit In 0.45 % NaCl 1 250ml.bag @ 10. 75 UNITS/KG/HR 9.996 mls/ hr IV .Q24H [facility] Rx#: [id number] Oral 240 Other: Voiding Method Toilet Toilet Urinal Urinal # Voids 2 1 Weight 92.986 kg 05/11/23 03:31 05/11/23 03:31
[2023-05-11] MEDS ORDERED: IV FLUID CONTINUATION 1,000 ML IV ONE (11:21)
[2023-05-11] MEDS ORDERED: fentaNYL (PF) 50 MCG/1 ML VIAL IVP ONE (11:46)
[2023-05-11] MEDS ORDERED: LIDOCAINE 1% INJ 10MG/ML (30 ML VIAL-PF) SQ ONE (11:48)
[2023-05-11] MEDS ORDERED: VERAPAMIL SYRINGE (5 MG/10 ML) INTRAARTER ONE (11:48)
[2023-05-11] MEDS ORDERED: HEPARIN SODIUM 1,000 UN/ML (10ML VL) IV ONE (11:54)
[2023-05-11] MEDS ORDERED: IOPAMIDOL-370 100ML BTL INJ ONE (12:01)
[2023-05-11] MEDS ORDERED: SODIUM CHLORIDE 0.9% 1,000 ML IV SCH (12:15)
[2023-05-11] MEDS ORDERED: RX INFO: IV CONTRAST WAS GIVEN 1 EACH MISC MISCELLANE PRN (12:15)
--- NOTE | 2023-05-11 12:21 | P.CARDCATH ---
Date of Procedure: 05/11/23 Description of Procedure: Cardiac Catheterization: The patient is a 67-year-old male with a known history of CAD, hypertension and hyperlipidemia status post multivessel stenting who presented with symptoms of chest discomfort, reminding him of the way he felt prior to his most recent stent. He had no evidence of acute coronary syndrome. Recommendations were made regarding cardiac catheterization, the risks and the complications were discussed with the patient who is in full understanding and agreement. Procedure Description: Patient was brought to seed laboratory assistant in fasting semi-sedated state after receiving Fentanyl and Benadryl achieiving moderate conscious sedated state. Using Xylocaine Anesthesia and modified Seldinger technique, a 6-Italian sheath was introduced in the right radial artery . Subsequently, selective coronary angiography was performed using a 5-Italian 3.5 bend Salvatore catheter. Multiple views of the coronary artery including hemiaxial views were obtained. The 6-Italian pigtail catheter was used to cross the aortic valve and LVEDP was calculated. Following that, catheter and sheath were removed. Hemostasis was obtained with deployment of vascular band . There was no immediate complication. Patient was returned to room in stable condition. Of note, the patient received a total of 5000 units of intravenous heparin as well as intra-arterial verapamil. Findings: Left main: This is a large size vessel, bifurcating into LAD and left circumflex, left main has 10-20% plaque distally LAD: This is a large size vessel, reaching to the apex, giving rise to 2 small diagonal branch. The stented segment proximally is patent with no evidence of in-stent restenosis. There is a 20% plaque distal to the stent that is of the vessel has no high-grade stenosis. Left circumflex: This is a nondominant vessel, giving rise to a large obtuse marginal branch, the stented segment in the obtuse marginal branch is patent with no evidence of significant in-stent restenosis. There is mild plaque at the ostium of the left circumflex. RCA: This is a large dominant vessel, bifurcating distally into PDA and PLV, the stented segment in the RCA has no evidence of significant in-stent restenosis. The mid segment of the RCA has mild plaque with no evidence of high-grade stenosis. Left Ventriculogram: Not performed Hemodynamics: There was no gradient across the aortic valve , LVEDP was 14-16 mmHg Conclusion: 1. Mild triple-vessel disease 2. Patent stent in the LAD 3. Patent stent in the left circumflex 4. Patent stent in the RCA Recommendations: The patient will continue present medical therapy with aggressive coronary risks modifications. The findings and the recommendations were discussed with the patient and the family and they were in full understanding and agreement. Duration of sedation is 19 minutes.
[2023-05-11 16:40] VITALS: BP 121/71; PULSE 61
--- NOTE | 2023-05-11 17:15 | P.CNPUL ---
History of Present Illness Consult date: 05/11/23 Requesting physician: Wade Rosa Reason for consult: abnormal CXR/CT Chief complaint: Chest pain, dizziness History of present illness: This is a very pleasant 67-year-old male patient with a known history of coronary artery disease with multiple stent placements, hyperlipidemia, hypertension, atrial fibrillation anticoagulated with Eliquis, former smoker. He presented to the emergency room yesterday with complaints of chest pain and dizziness. Chest x-ray revealed possible underlying infectious as inflammatory process of the right lower lung. White count 7.3. Humalog 14.0. Platelets 113. INR 1.2. Sodium 139. Potassium 4.1. Bicarb 21. BUN 25. Creatinine 1.13. Troponins were negative 3. He did undergo cardiac catheterization that did not reveal any significant stenosis. He is seen in his room resting comfortably in bed. Awake and alert in no acute distress. He denies any shortness of breath. No cough or congestion. No fever or chills. No shortness of breath. M aintaining good O2 saturations in the 90s on room air. Review of Systems REVIEW OF SYSTEMS: CONSTITUTIONAL: Positive for lightheadedness. Denies any recent significant ede ght loss or weight gain. EYES: Denies change in vision. EARS, NOSE, MOUTH, THROAT: Denies headaches, denies sore throat. CARDIOVASCULAR: Positive for chest pain, no palpitations or syncopal episodes. RESPIRATORY: Denies shortness of breath, cough, congestion or hemoptysis. GASTROINTESTINAL: Denies change in appetite, denies abdominal pain GENITOURINARY: Denies hematuria, denies infections. MUSKULOSKELETAL: Denies pain, denies swelling. INTEGUMENTARY: Denies rash, denies eczema. NEUROLOGICAL: Denies recent memory loss, no recent seizure activity. PSYCHIATRIC: Denies anxiety, denies depression. HEMATOLOGIC/LYMPHATIC: Denies anemia, denies enlarged lymph nodes. Past Medical History Past Medical History: Atrial Fibrillation, Coronary Artery Disease (CAD), Hyperlipidemia, Hypertension, Pneumonia Additional Past Medical History / Comment(s): Benign colon polyps in past, past migraines. History of Any Multi-Drug Resistant Organisms: None Reported Past Surgical History: Heart Catheterization, Heart Catheterization With Stent, Orthopedic Surgery Additional Past Surgical History / Comment(s): PCI/stent X3 2010, PCI/stents 2019 x1, right arm tendon repiar Past Anesthesia/Blood Transfusion Reactions: No Reported Reaction Date of Last Stent Placement:: 05/2019 Past Psychological History: No Psychological Hx Reported Additional Psychological History / Comment(s): Pt resides with his spouse. He is still working and independent. Smoking Status: Former smoker Past Alcohol Use History: Occasional Additional Past Alcohol Use History / Comment(s): Pt started smoking in 1969 and quit in 1979 Past Drug Use History: None Reported - Past Family History Father Family Medical History: Cancer, Hyperlipidemia, Hypertension Additional Family Medical History / Comment(s): COLON Mother Family Medical History: Congestive Heart Failure (CHF), Coronary Artery Disease (CAD), Diabetes Mellitus, Hyperlipidemia, Hypertension Additional Family Medical History / Comment(s): 4 vessel CABG Medications and Allergies Home Medications Medication Instructions Recorded Confirmed Type Aspirin 81 mg PO DAILY #30 chew 05/19/19 05/10/23 Rx Atorvastatin [Lipitor] 80 mg PO HS #30 tab 05/19/19 05/10/23 Rx Apixaban [Eliquis] 5 mg PO BID #60 tab 06/04/20 05/10/23 Rx Ascorbic Acid [Vitamin C] 1,000 mg PO DAILY tab 06/06/20 05/10/23 Rx Famotidine [Pepcid] 20 mg PO BID #60 tab 06/06/20 05/10/23 Rx hydroCHLOROthiazide [Hydrodiuril] 25 mg PO DAILY 10/25/21 05/10/23 History lisinopriL [Prinivil] 20 mg PO BID 10/25/21 05/10/23 History Nitroglycerin Sl Tabs [Nitrostat] 0.4 mg SUBLINGUAL Q5M PRN #25 tab 10/26/21 05/10/23 Rx Cholecalciferol [Vitamin D3 (125 125 mcg PO DAILY 05/10/23 05/10/23 History Mcg = 5000 Iu)] Febuxostat [Uloric] 40 mg PO DAILY 05/10/23 05/10/23 History Metoprolol Tartrate [Lopressor] 12.5 mg PO BID 05/10/23 05/10/23 History Sennosides/Docusate Sodium 1 tab PO DAILY 05/10/23 05/10/23 History [Senna-S 8.6-50 mg Tablet] Zinc Gluconate [Zinc] 50 mg PO DAILY 05/10/23 05/10/23 History traZODone HCL [Desyrel] 50 mg PO HS PRN 05/10/23 05/10/23 History Allergies Allergy/AdvReac Type Severity Reaction Status Date / Time No Known Allergies Allergy Verified 05/10/23 13:16 Physical Exam Vitals: Vital Signs Temp Pulse Resp BP Pulse Ox 05/11/23 16:19 61 18 121/71 97 05/11/23 15:31 58 L 18 131/82 98 05/11/23 14:53 57 L 18 05/11/23 14:47 57 L 18 125/77 97 05/11/23 13:30 51 L 18 136/86 99 05/11/23 13:11 48 L 18 113/79 96 05/11/23 12:53 50 L 18 121/76 95 05/11/23 12:30 52 L 18 138/96 95 05/11/23 12:21 52 L 18 125/81 97 05/11/23 10:45 54 L 18 05/11/23 09:29 54 L 18 147/71 98 05/11/23 04:00 98.1 F 53 L 16 158/83 98 05/11/23 02:00 47 L 17 05/11/23 00:00 98.2 F 47 L 17 113/66 98 05/10/23 20:00 98.3 F 45 L 18 120/71 97 Intake and Output 05/11/23 05/11/23 05/11/23 06:59 14:59 22:59 Intake Total 378.762 Balance 378.762 Intake: IV 200 Intake, IV Titration 178.762 Amount Heparin Sod,Pork in 0.45% 178.762 NaCl 25,000 unit In 0.45 % NaCl 1 250ml.bag @ 10. 75 UNITS/KG/HR 9.996 mls/ hr IV .Q24H [facility] Rx#: [id number] Oral 0 Other: Voiding Method Toilet Toilet Urinal Urinal # Voids 1 GENERAL EXAM: Alert, very pleasant 67-year-old male patient, on room air, comfortable in no apparent distress. HEAD: Normocephalic. EYES: Normal reaction of pupils, equal size. NOSE: Clear with pink turbinates. THROAT: No erythema or exudates. NECK: No masses, no JVD. CHEST: No chest wall deformity. LUNGS: Equal air entry with no crackles, wheeze, rhonchi or dullness. CVS: S1 and S2 normal with no audible murmur, regular rhythm. ABDOMEN: No hepatosplenomegaly, normal bowel sounds, no guarding or rigidity. SPINE: No scoliosis or deformity SKIN: No rashes CENTRAL NERVOUS SYSTEM: No focal deficits, tone is normal in all 4 extremities. EXTREMITIES: Right radial compression device in place. There is no peripheral edema. No clubbing, no cyanosis. Peripheral pulses are intact. Results - Laboratory Findings CBC and BMP: 05/11/23 03:31 05/11/23 03:31 PT/INR, D-dimer PT 12.7 sec (10.0-12.5) H 05/11/23 03:31 INR 1.2 (<1.2) H 05/11/23 03:31 Abnormal lab findings: Abnormal Labs 05/10/23 05/10/23 05/11/23 11:22 18:50 03:31 RBC 4.09 L Hct 38.9 L Plt Count 113 L PT INR APTT 60.2 H Chloride Carbon Dioxide BUN 25 H Glucose 05/11/23 05/11/23 05/11/23 03:31 03:31 03:31 RBC Hct Plt Count PT 12.7 H INR 1.2 H APTT 57.7 H Chloride 111 H Carbon Dioxide 21 L BUN 25 H Glucose 104 H - Diagnostic Findings Chest x-ray: image reviewed Assessment and Plan Assessment: Chest pain and lightheadedness in a patient with known history of coronary artery disease. Cardiac catheterization today revealed no significant stenosis Coronary artery disease with multiple stent placements in the past Abnormal chest x-ray findings with possible early infection/inflammatory process of the right lower lobe. Reviewed in detail and no pulmonary symptoms whatsoever Atrial flutter ablation anticoagulated with Eliquis History of hypertension Hyperlipidemia Former smoker Plan: The patient was seen and evaluated Chest x-ray, labs and medications reviewed Cardiac catheterization results reviewed The patient and his were reassured regarding chest x-ray finding Patient is asymptomatic from the pulmonary standpoint Plan is for discharge later today Could follow up in the office if he develops any pulmonary concerns I have personally seen and examined the patient, performed the documentation and the assessment and plan as written. Number of minutes spent on the visit: 20.
--- NOTE | 2023-05-12 05:48 | P.DS ---
Providers Date of admission: 05/10/23 12:27 Attending physician: Wade Rosa MD Consults: 05/10/23 12:27 Consult Physician Routine Consulting Provider: [facility] Consult Reason/Comments: chest pain Do you want consulting provider notified?: Yes 05/10/23 22:15 Consult Physician Routine Consulting Provider: Ha Breaux Reason/Comments: right becka airspace dis Do you want consulting provider notified?: Yes, Notify in am Primary care physician: Issac Cummings [facility] Course: Diagnoses: Chest pain, possible non-STEMI Airspace disease of the right lung is suspected, patient is asymptomatic and cleared by assembly cleaner and follow-up as an outpatient History of coronary artery disease status post stent Hypertension Hyperlipidemia Paroxysmal atrial fibrillation on a blood thinner at home. Hospital course: This is a pleasant 67 years old male with past medical history of Atrial Fibrillation, Coronary Artery Disease status post stent, Hyperlipidemia, Hypertension, Patient presents because of chest pain that started this morning half hour before coming to the hospital, central nonradiating about 7/10 in severity. Chest pain has resolved upon discharge. Evaluated by pie filler and had cardiac cath showing mild triple-vessel coronary artery disease and patent and multiple stents, please refer to the report for more details. Also chest x-ray was showing prominent central structures suspicious for air space disease however patient is completely asymptomatic, for example no dyspnea and no chest pain currently, no exertional dyspnea and no coughing. No orthop cherelle or dizziness or any other respiratory symptoms. Patient was followed by pulmonary service and recommended outpatient follow-up. For the appointments made for him with assembly cleaner Dr. Breaux on and he agrees to follow up with him. He denies any other complaints and the he wants to go home. Patient was cleared for discharge by pie filler and assembly cleaner. Problems and management plan were discussed with the patient and he verbalized understanding and acceptance Patient was found stable and can be discharged home in guarded prognosis however he needs follow-up as an outpatient. Patient was instructed to follow up with PCP Dr. Cummings within one week and patient agrees Patient was instructed to follow up with his pie filler Dr. Oswald in one week and Dr. Breaux assembly cleaner as above and he agrees. at bedside and all questions were answered Physical exam Gen: patient is a AAOx3, no distress CVS: S1-S2, RRR, no murmur Lungs: B/L CTA, no wheezing Abdomen: soft, no distention, no tenderness, positive bowel sounds Extremity: no leg edema or induration Time spent more than 35 minutes Patient Condition at Discharge: Stable Plan - Discharge Summary Discharge Rx Participant: Yes New Discharge Prescriptions: Continue Aspirin 81 mg PO DAILY #30 chew Atorvastatin [Lipitor] 80 mg PO HS #30 tab Apixaban [Eliquis] 5 mg PO BID #60 tab Famotidine [Pepcid] 20 mg PO BID #60 tab Ascorbic Acid [Vitamin C] 1,000 mg PO DAILY tab lisinopriL [Prinivil] 20 mg PO BID Nitroglycerin Sl Tabs [Nitrostat] 0.4 mg SUBLINGUAL Q5M PRN #25 tab PRN Reason: Chest Pain Cholecalciferol [Vitamin D3 (125 Mcg = 5000 Iu)] 125 mcg PO DAILY Zinc Gluconate [Zinc] 50 mg PO DAILY traZODone HCL [Desyrel] 50 mg PO HS PRN PRN Reason: sleep Febuxostat [Uloric] 40 mg PO DAILY hydroCHLOROthiazide [Hydrodiuril] 25 mg PO DAILY Metoprolol Tartrate [Lopressor] 12.5 mg PO BID Sennosides/Docusate Sodium [Senna-S 8.6-50 mg Tablet] 1 tab PO DAILY Discharge Medication List Aspirin 81 mg PO DAILY #30 chew 05/19/19 [Rx] Atorvastatin [Lipitor] 80 mg PO HS #30 tab 05/19/19 [Rx] Apixaban [Eliquis] 5 mg PO BID #60 tab 06/04/20 [Rx] Ascorbic Acid [Vitamin C] 1,000 mg PO DAILY tab 06/06/20 [Rx] Famotidine [Pepcid] 20 mg PO BID #60 tab 06/06/20 [Rx] hydroCHLOROthiazide [Hydrodiuril] 25 mg PO DAILY 10/25/21 [History] lisinopriL [Prinivil] 20 mg PO BID 10/25/21 [History] Nitroglycerin Sl Tabs [Nitrostat] 0.4 mg SUBLINGUAL Q5M PRN #25 tab 10/26/21 [Rx] Cholecalciferol [Vitamin D3 (125 Mcg = 5000 Iu)] 125 mcg PO DAILY 05/10/23 [History] Febuxostat [Uloric] 40 mg PO DAILY 05/10/23 [History] Metoprolol Tartrate [Lopressor] 12.5 mg PO BID 05/10/23 [History] Sennosides/Docusate Sodium [Senna-S 8.6-50 mg Tablet] 1 tab PO DAILY 05/10/23 [History] Zinc Gluconate [Zinc] 50 mg PO DAILY 05/10/23 [History] traZODone HCL [Desyrel] 50 mg PO HS PRN 05/10/23 [History] Follow up Appointment(s)/Referral(s): Shira Oswald MD [STAFF PHYSICIAN] - 1 Week (follow up the echo results with please. call and make appointment please) Issac Cummings MD [Primary Care Provider] - 1-2 days (please call and make appointment ) Ha Breaux DO [Doctor of Osteopathic Medicine] - 06/11/23 10:00 am Patient Instructions/Handouts: *Surgery [facility] - After Heart Catheterization - Firefighting Equipment Specialist Instructions, Angina (DC), After Radial Heart Catheterization (GEN) Activity/Diet/Wound Care/Special Instructions: Heart healthy diet Activity is restricted till you see your doctor Discharge Disposition: HOME SELF-CARE
== END 2023-05-11 18:20 | disposition home or self-care (01) | DRG 281 ==
LOC: EC 10:49 → 3SCARD 12:27
PROVIDERS: ADMIT Internal Medicine; ATTEND Internal Medicine
PROC: B2111ZZ Fluoroscopy of Multiple Coronary Arteries using Low Osmolar Contrast (ICD-10-PCS; principal; 2023-05-11 15:15)
PROC: 4A023N7 Measurement of Cardiac Sampling and Pressure, Left Heart, Percutaneous Approach (ICD-10-PCS; principal; 2023-05-11 15:15)
DX: I21.4 Non-ST elevation (NSTEMI) myocardial infarction (principal); I48.92 Unspecified atrial flutter; I25.83 Coronary atherosclerosis due to lipid rich plaque; I10 Essential (primary) hypertension; Z87.891 Personal history of nicotine dependence; E78.5 Hyperlipidemia, unspecified; I25.10 Atherosclerotic heart disease of native coronary artery without angina pectoris; I25.5 Ischemic cardiomyopathy; I48.0 Paroxysmal atrial fibrillation; I49.3 Ventricular premature depolarization; K21.9 Gastro-esophageal reflux disease without esophagitis; Z66 Do not resuscitate; Z79.01 Long term (current) use of anticoagulants; Z79.82 Long term (current) use of aspirin; Z79.899 Other long term (current) drug therapy; Z82.49 Family history of ischemic heart disease and other diseases of the circulatory system; Z86.010 Personal history of colon polyps; Z95.5 Presence of coronary angioplasty implant and graft; G43.909 Migraine, unspecified, not intractable, without status migrainosus
CPT/HCPCS: 36415; 71046; 80048; 80053; 83735; 84484; 85025; 85610; 85730; 93005; 93458; 96361; 96365; 96375; 99291

== ENCOUNTER → 2023-09-02 | Outpatient (CLI) | payer BC, MEDICARE ==
--- NOTE | 2023-09-02 15:50 | XR ---
EXAMINATION TYPE: XR chest 2V DATE OF EXAM: 09/02/2023 COMPARISON: 05/10/2023 TECHNIQUE: PA and lateral views submitted. HISTORY: Chest pain FINDINGS: The lungs are clear and there is no pneumothorax, pleural effusion, or focal pneumonia. Heart size normal and no overt failure. Osseous structures intact. IMPRESSION: 1. No acute process.
== END | disposition home or self-care (01) ==
LOC: RADXRMAIN 14:45
PROVIDERS: ATTEND Internal Medicine Geriatric Medicine
DX: J06.9 Acute upper respiratory infection, unspecified (principal); R07.9 Chest pain, unspecified
CPT/HCPCS: 71046

== ENCOUNTER 2024-05-03 10:04 | Day surgery (SDC) | payer BC, MEDICARE ==
[2024-04-28 15:26] VITALS: BMI 25.7
[~2024-05-03 10:04] MED LIST changes: -ALPRAZolam 0.25 MG TAB PO PRN; -ALPRAZolam 0.5 MG TAB PO PRN; -ASPIRIN 325 MG TAB PO STA; -ATORVASTATIN 80 MG TAB PO STA; -HEPARIN SODIUM,PORCINE 10,000 UNIT in SODIUM CHLORIDE 0.9% 1,000 ML IRRIGATION PRN; -HEPARIN SODIUM,PORCINE 2,500 UNIT in SODIUM CHLORIDE 0.9% 250 ML IRRIGATION PRN; +LIDOCAINE 1% (10MG/ML) FOR IV START INTRADERMA PRN; -NITROGLYCERIN SL TABS 0.4 MG TAB SUBLINGUAL PRN; +ONDANSETRON 4 MG/2 ML VIAL IVP PRN
[2024-05-03 10:41] VITALS: RESP 16; TEMP 96.4
[2024-05-03] MEDS: IV FLUID CONTINUATION 1,000 ML IV ONE (10:44)
[2024-05-03] MEDS: LACTATED RINGERS 1,000 ML IV SCH (10:46)
[2024-05-03] MEDS ORDERED: PROPOFOL 10 MG/ML 20 ML VIAL IV ONE (10:47)
--- NOTE | 2024-05-03 10:51 | P.GSHP ---
History of Present Illness H&P Date: 05/03/24 Chief Complaint: Colon cancer screening 68-year-old male here for colonoscopy. Last colonoscopy 6 years ago. Patient with history of colon polyps in the past. Last colonoscopy was normal however. No bowel complaints. Family history of colon cancer in his father Past Medical History Past Medical History: Atrial Fibrillation, Coronary Artery Disease (CAD), Hyperlipidemia, Hypertension, Pneumonia Additional Past Medical History / Comment(s): Benign colon polyps in past, past migraines. History of Any Multi-Drug Resistant Organisms: None Reported Past Surgical History: Heart Catheterization, Heart Catheterization With Stent, Orthopedic Surgery Additional Past Surgical History / Comment(s): PCI/stent X3 2010, PCI/stents 2018 x1, right arm tendon repiar Past Anesthesia/Blood Transfusion Reactions: No Reported Reaction Date of Last Stent Placement:: 05/2019 Smoking Status: Former smoker - Past Family History Father Family Medical History: Cancer, Hyperlipidemia, Hypertension Additional Family Medical History / Comment(s): COLON Mother Family Medical History: Congestive Heart Failure (CHF), Coronary Artery Disease (CAD), Diabetes Mellitus, Hyperlipidemia, Hypertension Additional Family Medical History / Comment(s): 4 vessel CABG Medications and Allergies Home Medications Medication Instructions Recorded Confirmed Type Aspirin 81 mg PO DAILY #30 chew 05/19/19 04/28/24 Rx Atorvastatin [Lipitor] 80 mg PO HS #30 tab 05/19/19 04/28/24 Rx Apixaban [Eliquis] 5 mg PO BID #60 tab 06/04/20 04/28/24 Rx Famotidine [Pepcid] 20 mg PO BID #60 tab 06/06/20 04/28/24 Rx lisinopriL [Prinivil] 20 mg PO BID 10/25/21 04/28/24 History Nitroglycerin Sl Tabs [Nitrostat] 0.4 mg SUBLINGUAL Q5M PRN #25 tab 10/26/21 04/28/24 Rx Febuxostat [Uloric] 40 mg PO DAILY 05/10/23 04/28/24 History Metoprolol Tartrate [Lopressor] 25 mg PO BID 05/10/23 04/28/24 History traZODone HCL [Desyrel] 50 mg PO HS PRN 05/10/23 04/28/24 History amLODIPine [Norvasc] 5 mg PO BID 04/28/24 04/28/24 History Allergies Allergy/AdvReac Type Severity Reaction Status Date / Time No Known Allergies Allergy Verified 05/03/24 10:41 Surgical - Exam Vital Signs Temp Pulse Resp BP Pulse Ox 96.4 F L 52 L 16 154/81 99 05/03/24 10:38 05/03/24 10:38 05/03/24 10:38 05/03/24 10:38 05/03/24 10:38 Physical exam: General: Well-developed, well-nourished HEENT: Normocephalic, sclerae nonicteric Abdomen: Nontender, nondistended Extremities: No edema Neuro: Alert and oriented Assessment and Plan (1) Colon cancer screening Narrative/Plan: Will proceed with colonoscopy at this time. Current Visit: Yes Status: Acute Code(s): Z12.11 - ENCOUNTER FOR SCREENING FOR MALIGNANT NEOPLASM OF COLON SNOMED Code(s): 535018245
--- NOTE | 2024-05-03 11:02 | P.PCN ---
Date of Procedure: 05/03/24 Procedure(s) Performed: PREOPERATIVE DIAGNOSIS: Colon cancer screening, family history in father POSTOPERATIVE DIAGNOSIS: Ascending colon polyp PROCEDURE: Colonoscopy with snare polypectomy ANESTHESIA: MAC SURGEON: Manuel Wilson M.D. SPECIMENS: Polyp ENDOSCOPIC PROCEDURE: The patient was placed on the endoscopy table in the left decubitus position. The Olympus colonoscope was inserted into the anus and passed under direct visualization to the base of the cecum. The appendiceal orifice was visualized. From that point the scope was slowly withdrawn inspecting all surfaces carefully. There were no neoplastic inflammatory or polypoid lesions throughout the cecum. In the ascending colon a small polyp was seen and removed using the snare with cautery technique. Remainder of the ascending transverse descending sigmoid and rectum was normal. There was no visible diverticulosis. Digital rectal examination was normal. The patient was taken to the recovery room in stable condition per anesthesia guidelines. RECOMMENDATIONS: Await biopsy results. Repeat colonoscopy 5 years.
[2024-05-03 11:26] VITALS: BP 120/82; PULSE 55
== END 2024-05-03 11:42 | disposition home or self-care (01) ==
LOC: ORWHC2ENDO 10:04
PROVIDERS: ATTEND Surgery
CPT/HCPCS: 45385; 88305